=== PATIENT | female | born 1930 | race Caucasian/White ===

== ENCOUNTER 2016-09-04 13:08 | Inpatient (IN) | payer MEDICARE ==
[~2016-09-04] VITALS: Ht 165.1 cm; Wt 49.1 kg
[~2016-09-04 13:08] MED LIST: ACET650T60 PO; AMLO10TA4 PO; ASPI-482 PO; BISA-42 PO; CARV12.5 PO; CARV3.12 PO; ESCI10TA PO; ESCI10TA10 PO; FURO-68 PO; FURO20TA3 PO; HYDR-2869 PO; MULT-475 PO; Mineral Oil/Petrolatum,White TP; NYST30PO9 TP; ONDA4TAB7 PO; OSEL75CA PO; POLY119P4 PO; POTA20TA4 PO; TRAV2.5D2 OU; UBID100C12 PO; UBID100C26 PO; vitamin e PO
[2016-09-04 15:00] LABS: BASO % 1 % (0-3); EOS % 2 % (0-3); HEMOGLOBIN 11.2 g/dL (12.0-15.5); LYMPH # 1.1 x10^3/uL (1.0-4.8); LYMPH % 20 % (24-48); MEAN CORPUSCULAR HEMOGLOBIN 30 pg (25-35); MEAN CORPUSCULAR HGB CONC 34 g/dL (31-37); MEAN CORPUSCULAR VOLUME 87 fL (79-100); MONO % 11 % (0-9); NEUT % 67 % (31-73); PLATELET COUNT 202 x10^3/uL (140-400); RED BLOOD COUNT 3.81 x10^6/uL (3.50-5.40); RED CELL DISTRIBUTION WIDTH 14.2 % (11.5-14.5); WHITE BLOOD COUNT 5.5 x10^3/uL (4.0-11.0)
[2016-09-04 15:06] LABS: CALCIUM 8.7 mg/dL (8.5-10.1); CREATININE 0.9 mg/dL (0.6-1.0); GFR 59.2; POTASSIUM 3.7 mmol/L (3.5-5.1)
--- NOTE | 2016-09-04 15:08 | RAD ---
Portable chest, 09/04/2016: History: Neurologic symptoms Comparison is made to a study from 03/17/2016. There has been a previous median sternotomy. A left-sided transvenous pacemaker remains in place with 2 leads extending into the right heart. The heart size and pulmonary vascularity are normal. There is calcific plaquing of the aorta. No pulmonary infiltrates are present. Previously seen right pulmonary infiltrates have cleared. There is no evidence of pleural fluid. The bony structures are demineralized. IMPRESSION: No acute cardiopulmonary abnormality is detected.
[2016-09-04 15:11] LABS: INR 1.1 (0.8-1.1); PROTHROMBIN TIME PATIENT 13.9 SEC (11.7-14.0)
[2016-09-04 15:12] LABS: ALBUMIN 3.5 g/dL (3.4-5.0); ALBUMIN/GLOBULIN RATIO 0.9 (1.0-1.7); TOTAL BILIRUBIN 0.3 mg/dL (0.2-1.0); TOTAL PROTEIN 7.2 g/dL (6.4-8.2)
[2016-09-04 15:22] LABS: BILIRUBIN,URINE NEGATIVE (NEG); GLUCOSE,URINE NEGATIVE (NEG); NITRITE,URINE NEGATIVE (NEG); PH,URINE 6.5; PROTEIN,URINE NEGATIVE (NEG-TRACE); UROBILINOGEN,URINE 0.2 mg/dL (0.2 mg/dL)
[2016-09-04 15:42] LABS: BACTERIA,URINE 0 /HPF (0-FEW); WBC,URINE OCC /HPF (0-4)
--- NOTE | 2016-09-04 15:57 | RAD ---
CT of the head without contrast, 09/04/2016: History: Slurred speech Comparison is made to a study from 03/17/2016. This study is partially compromised by patient motion artifact. There is severe cerebral atrophy. There are moderate patchy deep white matter lucencies bilaterally compatible with chronic ischemic change. The ventricles are mildly enlarged on a compensatory basis. There is no shift of the midline structures. There is no evidence of acute intracranial hemorrhage or mass effect. There is calcific plaquing of the distal internal carotid and vertebral arteries. IMPRESSION: 1. Chronic findings as described above. 2. No acute intracranial abnormality is detected. PQRS Compliance Statement: One or more of the following individualized dose reduction techniques were utilized for this examination: 1. Automated exposure control 2. Adjustment of the mA and/or kV according to patient size 3. Use of iterative reconstruction technique
--- NOTE | 2016-09-04 16:44 | EKG ---
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
[2016-09-04] MEDS ORDERED: FENTANYL PF 100 MCG/2 ML VIAL. IV PRN (17:15)
[2016-09-04] MEDS ORDERED: ACETAMINOPHEN 325 MG TABLET. PO PRN (17:15)
[2016-09-04] MEDS ORDERED: ONDANSETRON PF 4 MG/2 ML VIAL. IV PRN (17:15)
[2016-09-04 18:05] VITALS: BP 104/62
[2016-09-04] MEDS ORDERED: DOCU100C5 PO (18:41)
--- NOTE | 2016-09-04 19:09 | PHYS DOC ---
Past Medical History Past Medical History: Anemia, Arthritis, CHF, COPD, Dementia, Diabetes-Type II , Hypertension, GA, P.U.D., Other Additional Past Medical Histor: DYSRYTHMIA Past Surgical History: Hysterectomy, Other Additional Past Surgical Histo: CABG Alcohol Use: None Drug Use: None Adult General Chief Complaint Chief Complaint: SLURRED SPEECH HPI HPI Patient is a 86 year old female who presents with slurred speech. Patient unable to provide history due to clinical condition. [facility] staff report onset of slurred speech last evening at unknown time, as well as right-sided weakness. Patient states she does not feel weak on her right side. She denies any concerns at this time, denies chest pain, shortness of breath, abdominal pain. Denies any known history of stroke. Per her chart her PCP is Dr. May. Review of Systems Review of Systems Constitutional: Denies fever or chills Eyes: Denies change in visual acuity HENT: Denies nasal congestion or sore throat Respiratory: Denies cough or shortness of breath Cardiovascular: Denies chest pain or edema GI: Denies abdominal pain, nausea, vomiting, bloody stools or diarrhea : Denies dysuria or hematuria Musculoskeletal: Denies back pain or joint pain Integument: Denies rash or skin lesions Neurologic: Reports slurred speech, possible history of right sided weakness. Denies headache, focal weakness or sensory changes Allergies Allergies Allergies Coded Allergies Type Severity Reaction Last Updated Verified No Known Drug Allergies 12/16/13 No Physical Exam Physical Exam Constitutional: thin, frail, no acute distress, non-toxic appearance. HENT: Normocephalic, atraumatic, bilateral external ears normal, oropharynx moist, nose normal. Eyes: PERRLA, EOMI, conjunctiva normal, no discharge. Neck: supple, no stridor. Cardiovascular: RRR, no murmurs, no edema. Lungs & Thorax: LCTAB, no wheezing, no respiratory distress. Abdomen: soft, nontender, nondistended. Skin: Warm, dry, no erythema, no rash. Back: No tenderness. Extremities: No tenderness, no edema. Neurologic: Alert and oriented to person only, CN2-12 grossly intact, symmetric strength/sensation to UE & LE, intact finger to nose & heel to benoit, no palmar drift, speech does sound slurred, some difficulty with word finding at times. Psychologic: Affect normal, judgement normal, mood normal. Current Patient Data Vital Signs Vital Signs Date Time Temp Pulse Resp B/P Pulse Ox O2 Delivery O2 Flow Rate FiO2 09/04/16 16:40 70 15 179/81 97 09/04/16 13:15 98.0 Room Air 98.0 Lab Values Laboratory Tests Test 09/04/16 14:45 09/04/16 15:05 White Blood Count 5.5x10^3/uL (4.0-11.0) Red Blood Count 3.81x10^6/uL (3.50-5.40) Hemoglobin 11.2g/dL (12.0-15.5) L Hematocrit 33.0% (36.0-47.0) L Mean Corpuscular Volume 87fL (79-100) Mean Corpuscular Hemoglobin 30pg (25-35) Mean Corpuscular Hemoglobin Concent 34g/dL (31-37) Red Cell Distribution Width 14.2% (11.5-14.5) Platelet Count 202x10^3/uL (140-400) Neutrophils (%) (Auto) 67% (31-73) Lymphocytes (%) (Auto) 20% (24-48) L Monocytes (%) (Auto) 11% (0-9) H Eosinophils (%) (Auto) 2% (0-3) Basophils (%) (Auto) 1% (0-3) Neutrophils # (Auto) 3.6x10^3uL (1.8-7.7) Lymphocytes # (Auto) 1.1x10^3/uL (1.0-4.8) Monocytes # (Auto) 0.6x10^3/uL (0.0-1.1) Eosinophils # (Auto) 0.1x10^3/uL (0.0-0.7) Basophils # (Auto) 0.0x10^3/uL (0.0-0.2) Prothrombin Time 13.9SEC (11.7-14.0) Prothrombin Time INR 1.1 (0.8-1.1) PTT 31SEC (24-38) Sodium Level 142mmol/L (136-145) Potassium Level 3.7mmol/L (3.5-5.1) Chloride Level 103mmol/L (98-107) Carbon Dioxide Level 29mmol/L (21-32) Anion Gap 10 (6-14) Blood Urea Nitrogen 18mg/dL (7-20) Creatinine 0.9mg/dL (0.6-1.0) Estimated GFR (Cockcroft-Gault) 59.2 BUN/Creatinine Ratio 20 (6-20) Glucose Level 136mg/dL (70-99) H Calcium Level 8.7mg/dL (8.5-10.1) Total Bilirubin 0.3mg/dL (0.2-1.0) Aspartate Amino Transferase (AST) 17U/L (15-37) Alanine Aminotransferase (ALT) 15U/L (14-59) Alkaline Phosphatase 51U/L (46-116) Troponin I Quantitative < 0.017ng/mL (0.000-0.055) Total Protein 7.2g/dL (6.4-8.2) Albumin 3.5g/dL (3.4-5.0) Albumin/Globulin Ratio 0.9 (1.0-1.7) L Urine Collection Type U cath Urine Color Yellow Urine Clarity Clear Urine pH 6.5 Urine Specific [place] <=1.005 Urine Protein Negativemg/dL (NEG-TRACE) Urine Glucose (UA) Negativemg/dL (NEG) Urine Ketones (Stick) Negativemg/dL (NEG) Urine Blood Negative (NEG) Urine Nitrite Negative (NEG) Urine Bilirubin Negative (NEG) Urine Urobilinogen Dipstick 0.2mg/dL (0.2 mg/dL) Urine Leukocyte Esterase Negative (NEG) Urine RBC 1-2/HPF (0-2) Urine WBC Occ/HPF (0-4) Urine Bacteria 0/HPF (0-FEW) Laboratory Tests 09/04/16 14:45 Laboratory Tests 09/04/16 14:45 EKG EKG interpreted by me: NSR rate 75, paced.[] Radiology/Procedures Radiology/Procedures PROCEDURE: CT HEAD WO CONTRAST CT of the head without contrast, 09/04/2016: History: Slurred speech Comparison is made to a study from 03/17/2016. This study is partially compromised by patient motion artifact. There is severe cerebral atrophy. There are moderate patchy deep white matter lucencies bilaterally compatible with chronic ischemic change. The ventricles are mildly enlarged on a compensatory basis. There is no shift of the midline structures. There is no evidence of acute intracranial hemorrhage or mass effect. There is calcific plaquing of the distal internal carotid and vertebral arteries. IMPRESSION: 1. Chronic findings as described above. 2. No acute intracranial abnormality is detected. PQRS Compliance Statement: One or more of the following individualized dose reduction techniques were utilized for this examination: 1. Automated exposure control 2. Adjustment of the mA and/or kV according to patient size 3. Use of iterative reconstruction technique DICTATED and SIGNED BY: TRESA STRATTON MD DATE: 09/04/16 1555 PROCEDURE: CHEST AP ONLY Portable chest, 09/04/2016: History: Neurologic symptoms Comparison is made to a study from 03/17/2016. There has been a previous median sternotomy. A left-sided transvenous pacemaker remains in place with 2 leads extending into the right heart. The heart size and pulmonary vascularity are normal. There is calcific plaquing of the aorta. No pulmonary infiltrates are present. Previously seen right pulmonary infiltrates have cleared. There is no evidence of pleural fluid. The bony structures are demineralized. IMPRESSION: No acute cardiopulmonary abnormality is detected. DICTATED and SIGNED BY: TRESA STRATTON MD DATE: 09/04/16 1309[] Course & Med Decision Making Course & Med Decision Making Pertinent Labs and Imaging studies reviewed. (See chart for details) The patient presents with possible stroke related symptoms. Well outside the window for TPA administration of symptoms began last night. She had head CT which showed no acute process. Her only finding at this time is slurred speech although there reportedly was some right-sided weakness initially. Discussed findings with Dr. May who recommends admission, agrees to accept for admission to inpatient status, neurology consult to Dr. White. Patient agrees with plan of care, admitted in stable condition. [] Dragon Disclaimer Dragon Disclaimer This electronic medical record was generated, in whole or in part, using a voice recognition dictation system. Departure Departure Impression: Primary Impression: Slurred speech Disposition: ADMITTED INPATIENT Condition: STABLE JULIEN SOMMER MD Sep 04, 2016 19:09
[2016-09-04] MEDS ORDERED: ASPIRIN 325 MG TABLET PO ONE (19:15)
[2016-09-04 19:44] VITALS: BP 150/69
[2016-09-04 23:35] VITALS: BP 129/61
[2016-09-05 03:28] VITALS: BP 159/56
[2016-09-05 05:52] LABS: CHOLESTEROL/HDL RATIO 5.1
[2016-09-05 07:10] VITALS: BP 159/54
--- NOTE | 2016-09-05 07:41 | RAD ---
Carotid ultrasound, 09/04/2016: History: Slurred speech Duplex evaluation of the carotid arteries in the neck was performed including grayscale, color-flow and spectral Doppler analysis. There is moderate atherosclerotic plaquing in both common carotid arteries and at the carotid bifurcations, left greater than right. The plaques are partially calcified. On the left, the peak systolic velocity in the internal carotid artery is 129 cm/s. The end-diastolic velocity is 24 cm/s. The internal carotid artery to common carotid artery ratio is 1.9. The Doppler findings suggest narrowing in the 0-50% diameter range, close to the 50% level. On the right, there is a mild velocity acceleration in the common carotid artery up to 145 cm/s. The color images do not suggest high-grade stenosis at this level. The peak systolic velocity in the right internal carotid artery is 90 cm/s with an end-diastolic velocity of 19 cm/s. The Doppler findings suggest narrowing in the 0-50% diameter range. Antegrade flow is present in both vertebral arteries in the neck. IMPRESSION: Moderate atherosclerotic plaquing in the common carotid arteries and at both carotid bifurcations with underlying luminal narrowing of the proximal internal carotid arteries in the 0-50% diameter range bilaterally. Note: Stenosis calculations for CT, MRA and conventional angiography are based upon determination of the distal ICA diameter in accordance with the NASCET methodology. Stenosis calculations for Doppler studies are derived from validated velocity criteria which are known to correlate with NASCET methodology of determining stenosis.
--- NOTE | 2016-09-05 08:43 | RAD ---
CT scan of the head without contrast 09/05/2016 Clinical History: Weakness. Technique: Unenhanced, contiguous, 5 mm axial sections were obtained through the head. One or more of the following individualized dose reduction techniques were utilized for this study: 1. Automated exposure control. 2. Adjustment of the mA and/or kV according to patient size. 3. Use of iterative reconstruction technique. Findings: Comparison study is dated 09/04/2016. There is generalized parenchymal atrophy. Small scattered areas of decreased attenuation are seen within the periventricular and subcortical white matter of both cerebral hemispheres consistent with areas of small vessel ischemic disease. No acute parenchymal abnormality is seen. No extra-axial fluid collection is noted. No skull fracture is seen. Impression: . No acute intracranial abnormality is seen.
[2016-09-05] MEDS: ASPIRIN 325 MG TABLET PO SCH (08:51)
[2016-09-05 10:39] VITALS: BP 145/56
[2016-09-05 14:31] VITALS: BP 147/70
--- NOTE | 2016-09-05 15:27 | PDOC2 ---
NEUROLOGY CONSULT Date of Admission Date of Admission DATE: 09/05/16 TIME: 15:12 Reason for Consult Reason for Consult: NEUROLOGY CONSULTATION 09-04-2016 IMPRESSION: Slurred speech and right side weakness for 1 day before coming to [facility]. DM HTN HLD CAD, s/p OH and CABG COPD Dementia. RECOMMENDATIONS/PLAN: Continue ASA 325 mg daily. Carotid A US + Doppler. Echo. Treat medical diseases. Repeat HCT w/o contrast. Lab: see orders. OT/PT. Discussed with her [id number] at bedside on 09/04. HISTORY OF THE PRESENT ILLNESS: 86-y-old female patient with above medical diseases was brought to the ER of [facility] on 09/04/16 with complaints of slurred speech and possible right side weakness noted by her skilled nursing staff the previous night. The patient was unable to provide history. When she was examed on the floor in pm of 09/04, she stated she had weakness all over, then said she did not have weakness in neither side. Her speech was not slurred at the time of exam. PAST MEDICAL HISTORY: Please see above. PAST SURGERY HISTORY: Hysterectomy ALLERGY: Unknown MEDICATIONS: Refer to [facility]ILY HISTORY: Non contributory. SOCIAL HISTORY: Lives in skilled nursing. Denies current smoking, drinking, and illicit drug use. REVIEW OF SYSTEMS: Constitutional: No malnutrition or cachexia. Head: No recent traumatic brain or head injury. Skin: No edema, or rash. Ear: No infection, tinnitus. Eyes: No vision loss or color blindness. Nose: No bleeding or purulent discharges. Hearing: Hearing decrease. Neck: No injury. Breast: No history of cancer, masses,or discharges. Cardiac: OH, CAD, s/p CABG, HTN, HLD. Pulmonary: COPD. GI: No GI ulcer, GI bleeding. Urinary/genital: UTI. Endocrinologic: Diabetes Mellitus. Skeletomuscular: Generalized weakness. Neurological: see HP. Psychiatric: Denies drug use/abuse. Otherwise, not [id number] review of systems. PHYSICAL EXAMINATION: General appearance is in no acute distress. HEENT: Normocephalic and nontraumatic. Eyes, nose, ears, and throat are unremarkable. Neck is supple. No lymphadenopathy. No bruits are heard over the carotid artery. No crepitus. Cardiovascular: S1, S2, regular rate and rhythm. Pulmonary: Clear to auscultation bilaterally. Abdomen: Bowel sounds are positive. Abdomen is soft, nontender, and nondistended. Extremities: No rash, lesions, or edema. No restriction of range of motion NEUROLOGICAL EXAMINATION: Awake. Not oriented to time, place but knows person. PERRL. EOMI. CN: no acute focal findings. Muscle tone: within normal. Muscle strength: 4+ DTR: 2- Plantar reflex: Neutral response bilaterally Gait: not examined in bed. Sensory exam: no abnormal findings. No obvious cerebellar signs elicited. F-T-N test not performed due to not follow commands.. Current Medications Current Medications Current Medications Ondansetron HCl (Zofran) 4 mg PRN Q8HRS PRN IV NAUSEA/VOMITING; Start 09/04/16 at 17:15; Stop 09/05/16 at 17:14 Fentanyl Citrate (Fentanyl 2ml Vial) 25 mcg PRN Q2HR PRN IV PAIN; Start at 17:15; Stop 09/05/16 at 17:14 Acetaminophen (Tylenol) 650 mg PRN Q4HRS PRN PO FEVER; Start 09/04/16 at 17:15 ; Stop 09/05/16 at 17:14 Aspirin (RockBee Aspirin) 325 mg 1X ONCE PO Last administered on 09/04/16 20:36 ; Start 09/04/16 at 19:15; Stop 09/04/16 at 19:16; Status DC Aspirin (RockBee Aspirin) 325 mg DAILYWBKFT PO Last administered on 09/05/16 08: 51; Start 09/05/16 at 08:00 Simvastatin (Zocor) 20 mg HS PO ; Start 09/05/16 at 21:00 Active Scripts Active Coreg (Carvedilol) 12.5 Mg Tablet 1 Tab PO BID Klor-Con M20 (Potassium Chloride) 20 Meq Tablet.er 20 Meq PO DAILYWBKFT Reported Docusate Sodium 100 Mg Capsule 100 Mg PO DAILY Norvasc (Amlodipine Besylate) 10 Mg Tablet 10 Mg PO DAILY LAST DOSE: 08/20/15 AM NEXT DOSE: 08/21/15 AM Miralax (Polyethylene Glycol 3350) 119 Gm Powder 17 Gm PO DAILY Acetaminophen 8 Hour (Acetaminophen) 650 Mg Tablet.er 650 Mg PO PRN Q4HRS PRN Allergies Allergies: Coded Allergies: No Known Drug Allergies (Unverified , 12/16/13) Vitals VITALS Vital Signs Date Time Temp Pulse Resp B/P Pulse Ox O2 Delivery O2 Flow Rate FiO2 09/05/16 14:31 97.3 63 17 147/70 94 Room Air 97.3 Labs Labs Laboratory Tests Test 09/04/16 14:45 09/04/16 15:05 09/04/16 18:16 09/05/16 04:15 White Blood Count 5.5x10^3/uL (4.0-11.0) Red Blood Count 3.81x10^6/uL (3.50-5.40) Hemoglobin 11.2g/dL (12.0-15.5) Hematocrit 33.0% (36.0-47.0) Mean Corpuscular Volume 87fL (79-100) Mean Corpuscular Hemoglobin 30pg (25-35) Mean Corpuscular Hemoglobin Concent 34g/dL (31-37) Red Cell Distribution Width 14.2% (11.5-14.5) Platelet Count 202x10^3/uL (140-400) Neutrophils (%) (Auto) 67% (31-73) Lymphocytes (%) (Auto) 20% (24-48) Monocytes (%) (Auto) 11% (0-9) Eosinophils (%) (Auto) 2% (0-3) Basophils (%) (Auto) 1% (0-3) Neutrophils # (Auto) 3.6x10^3uL (1.8-7.7) Lymphocytes # (Auto) 1.1x10^3/uL (1.0-4.8) Monocytes # (Auto) 0.6x10^3/uL (0.0-1.1) Eosinophils # (Auto) 0.1x10^3/uL (0.0-0.7) Basophils # (Auto) 0.0x10^3/uL (0.0-0.2) Prothrombin Time 13.9SEC (11.7-14.0) Prothromb Time International Ratio 1.1 (0.8-1.1) Activated Partial Thromboplast Time 31SEC (24-38) Sodium Level 142mmol/L (136-145) Potassium Level 3.7mmol/L (3.5-5.1) Chloride Level 103mmol/L (98-107) Carbon Dioxide Level 29mmol/L (21-32) Anion Gap 10 (6-14) Blood Urea Nitrogen 18mg/dL (7-20) Creatinine 0.9mg/dL (0.6-1.0) Estimated GFR (Cockcroft-Gault) 59.2 BUN/Creatinine Ratio 20 (6-20) Glucose Level 136mg/dL (70-99) Calcium Level 8.7mg/dL (8.5-10.1) Total Bilirubin 0.3mg/dL (0.2-1.0) Aspartate Amino Transf (AST/SGOT) 17U/L (15-37) Alanine Aminotransferase (ALT/SGPT) 15U/L (14-59) Alkaline Phosphatase 51U/L (46-116) Troponin I Quantitative < 0.017ng/mL (0.000-0.055) Total Protein 7.2g/dL (6.4-8.2) Albumin 3.5g/dL (3.4-5.0) Albumin/Globulin Ratio 0.9 (1.0-1.7) Vitamin B12 Level 460pg/mL (247-911) Thyroid Stimulating Hormone (TSH) 1.235uIU/mL (0.358-3.74) Urine Collection Type U cath Urine Color Yellow Urine Clarity Clear Urine pH 6.5 Urine Specific [place] <=1.005 Urine Protein Negativemg/dL (NEG-TRACE) Urine Glucose (UA) Negativemg/dL (NEG) Urine Ketones (Stick) Negativemg/dL (NEG) Urine Blood Negative (NEG) Urine Nitrite Negative (NEG) Urine Bilirubin Negative (NEG) Urine Urobilinogen Dipstick 0.2mg/dL (0.2 mg/dL) Urine Leukocyte Esterase Negative (NEG) Urine RBC 1-2/HPF (0-2) Urine WBC Occ/HPF (0-4) Urine Bacteria 0/HPF (0-FEW) Nasal Screen MRSA (PCR) Negative (Negative) Triglycerides Level 195mg/dL (0-150) Cholesterol Level 168mg/dL (0-200) LDL Cholesterol, Calculated 96mg/dL (0-100) VLDL Cholesterol, Calculated 39mg/dL (0-40) HDL Cholesterol 33mg/dL (40-60) Cholesterol/HDL Ratio 5.1 Laboratory Tests Test 09/04/16 18:16 09/05/16 04:15 Nasal Screen MRSA (PCR) Negative (Negative) Triglycerides Level 195mg/dL (0-150) Cholesterol Level 168mg/dL (0-200) LDL Cholesterol, Calculated 96mg/dL (0-100) VLDL Cholesterol, Calculated 39mg/dL (0-40) HDL Cholesterol 33mg/dL (40-60) Cholesterol/HDL Ratio 5.1 VARGAS VACA MD Sep 05, 2016 15:27
--- NOTE | 2016-09-05 15:31 | PDOC ---
PROGRESS NOTES Assessment Assessment Slurred speech and right side weakness for 1 day before coming to [facility]. Reversible CVA syndrome. 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 No evidence of acute large CVA this time. RECOMMENDATIONS/PLAN: Continue ASA 325 mg daily. Add Zocor 20 mg HS. Treat medical diseases. OT/PT. Discussed with her [id number]-nv-xyr at bedside on 09/04. 2 HCTs showed no large CVA this time. Carotid A US + Doppler.: No high grade stenosis. Echo: Pending. Lab: TSH and Vit B12 WNL. Lipids elevated. HISTORY OF THE PRESENT ILLNESS: 86-y-old female patient with above medical diseases was brought to the ER of [facility] on 09/04/16 with complaints of slurred speech and possible right side weakness noted by her detention staff the previous night. The patient was unable to provide history. When she was examed on the floor in pm of 09/04, she stated she had weakness all over, then said she did not have weakness in neither side. Her speech was not slurred at the time of exam. No sided weakness or slurred speech on 09/05. PAST MEDICAL HISTORY: Please see above. PAST SURGERY HISTORY: Hysterectomy ALLERGY: Unknown MEDICATIONS: Refer to [facility] FAMILY HISTORY: Non contributory. SOCIAL HISTORY: Lives in detention. Denies current smoking, drinking, and illicit drug use. REVIEW OF SYSTEMS: Constitutional: No malnutrition or cachexia. Head: No recent traumatic brain or head injury. Skin: No edema, or rash. Ear: No infection, tinnitus. Eyes: No vision loss or color blindness. Nose: No bleeding or purulent discharges. Hearing: Hearing decrease. Neck: No injury. Breast: No history of cancer, masses,or discharges. Cardiac: IL, CAD, s/p CABG, HTN, HLD. Pulmonary: COPD. GI: No GI ulcer, GI bleeding. Urinary/genital: UTI. Endocrinologic: Diabetes Mellitus. Skeletomuscular: Generalized weakness. Neurological: see HP. Psychiatric: Denies drug use/abuse. Otherwise, not [id number] review of systems. PHYSICAL EXAMINATION: General appearance is in no acute distress. HEENT: Normocephalic and nontraumatic. Eyes, nose, ears, and throat are unremarkable. Neck is supple. No lymphadenopathy. No bruits are heard over the carotid artery. No crepitus. Cardiovascular: S1, S2, regular rate and rhythm. Pulmonary: Clear to auscultation bilaterally. Abdomen: Bowel sounds are positive. Abdomen is soft, nontender, and nondistended. Extremities: No rash, lesions, or edema. No restriction of range of motion NEUROLOGICAL EXAMINATION: Awake. Not oriented to time, place but knows person. PERRL. EOMI. CN: no acute focal findings. Muscle tone: within normal. Muscle strength: 4+ DTR: 2- Plantar reflex: Neutral response bilaterally Gait: not examined in bed. Sensory exam: no abnormal findings. No obvious cerebellar signs elicited. F-T-N test not performed due to not follow commands.. Objective Objective Vital Signs Date Time Temp Pulse Resp B/P Pulse Ox O2 Delivery O2 Flow Rate FiO2 09/05/16 14:31 97.3 63 17 147/70 94 Room Air 97.3 Intake and Output 09/05/16 07:00 Intake Total 200 ml Balance 200 ml Intake Oral 200 ml # Voids 4 # Bowel Movements 1 Vitals Signs Vitals VS - Last 72 Hours, by Label Date Time Temp Pulse Resp B/P Pulse Ox O2 Delivery O2 Flow Rate FiO2 09/05/16 14:31 97.3 63 17 147/70 94 Room Air 97.3 09/05/16 10:39 97.6 66 17 145/56 95 Room Air 97.6 09/05/16 08:00 Room Air 09/05/16 07:10 97.9 71 17 159/54 95 Room Air 97.9 09/05/16 03:28 97.7 70 16 159/56 95 Room Air 97.7 09/04/16 23:35 97.7 70 16 129/61 94 Room Air 97.7 09/04/16 20:00 Room Air 09/04/16 19:44 96.1 78 16 150/69 94 Room Air 96.1 09/04/16 18:05 97.7 70 20 104/62 89 Room Air 97.7 09/04/16 17:10 74 12 179/74 96 09/04/16 16:40 70 15 179/81 97 09/04/16 16:10 72 13 178/80 97 09/04/16 15:40 70 20 171/74 96 09/04/16 15:14 7 16 175/74 96 09/04/16 14:14 70 17 158/67 97 09/04/16 13:44 70 20 184/74 97 09/04/16 13:15 98.0 69 16 164/70 97 Room Air 98.0 09/04/16 13:14 164/70 Room Air Laboratory Laboratory Laboratory Tests Test 09/04/16 18:16 09/05/16 04:15 Nasal Screen MRSA (PCR) Negative (Negative) Triglycerides Level 195mg/dL (0-150) Cholesterol Level 168mg/dL (0-200) LDL Cholesterol, Calculated 96mg/dL (0-100) VLDL Cholesterol, Calculated 39mg/dL (0-40) HDL Cholesterol 33mg/dL (40-60) Cholesterol/HDL Ratio 5.1 Medication Medications Current Medications Acetaminophen (Tylenol) 650 mg PRN Q4HRS PRN PO FEVER; Start 09/04/16 at 17:15 ; Stop 09/05/16 at 17:14 Aspirin ([employer] Aspirin) 325 mg 1X ONCE PO Last administered on 09/04/16 20:36 ; Start 09/04/16 at 19:15; Stop 09/04/16 at 19:16; Status DC Aspirin ([employer] Aspirin) 325 mg DAILYWBKFT PO Last administered on 09/05/16 08: 51; Start 09/05/16 at 08:00 Fentanyl Citrate (Fentanyl 2ml Vial) 25 mcg PRN Q2HR PRN IV PAIN; Start at 17:15; Stop 09/05/16 at 17:14 Ondansetron HCl (Zofran) 4 mg PRN Q8HRS PRN IV NAUSEA/VOMITING; Start 09/04/16 at 17:15; Stop 09/05/16 at 17:14 Simvastatin (Zocor) 20 mg HS PO ; Start 09/05/16 at 21:00 Comment Review of Relevant I have reviewed the following items mariaelena (where applicable) has been applied. VARGAS VACA MD Sep 05, 2016 15:31
--- NOTE | 2016-09-05 16:55 | PDOC ---
GENERAL General: see dictated H&P. Problems: VITAL SIGNS Vital Signs: Vital Signs Date Time Temp Pulse Resp B/P Pulse Ox O2 Delivery O2 Flow Rate FiO2 09/05/16 14:31 97.3 63 17 147/70 94 Room Air 97.3 I & O I & O Intake and Output 09/05/16 07:00 Intake Total 200 ml Balance 200 ml Intake Oral 200 ml # Voids 4 # Bowel Movements 1 ALLERGIES Allergies: Allergies Coded Allergies Type Severity Reaction Last Updated Verified No Known Drug Allergies 12/16/13 No MEDS Medications: Current Medications Medications (Trade) Dose Ordered Sig/Peggy Start Time Stop Time Status Last Admin Dose Admin Acetaminophen (Tylenol) 650 mg PRN Q4HRS PRN 09/04/16 17:15 09/05/16 17:14 Aspirin (Sarah Aspirin) 325 mg DAILYWBKFT 09/05/16 08:00 09/05/16 08:51 325 MG Fentanyl Citrate (Fentanyl 2ml Vial) 25 mcg PRN Q2HR PRN 09/04/16 17:15 09/05/16 17:14 Ondansetron HCl (Zofran) 4 mg PRN Q8HRS PRN 09/04/16 17:15 09/05/16 17:14 Simvastatin (Zocor) 20 mg HS 09/05/16 21:00 LAB Lab: Laboratory Tests Test 09/04/16 18:16 09/05/16 04:15 Nasal Screen MRSA (PCR) Negative (Negative) Triglycerides Level 195mg/dL (0-150) Cholesterol Level 168mg/dL (0-200) LDL Cholesterol, Calculated 96mg/dL (0-100) VLDL Cholesterol, Calculated 39mg/dL (0-40) HDL Cholesterol 33mg/dL (40-60) Cholesterol/HDL Ratio 5.1 ORION RALPH MD Sep 05, 2016 16:55
[2016-09-05] MEDS ORDERED: ACETAMINOPHEN 325 MG TABLET. PO PRN (17:00)
--- NOTE | 2016-09-05 17:21 | CARD ---
APPROVED REPORT EXAM: Two-dimensional and M-mode echocardiogram with Doppler and color Doppler. Other Information Quality : AverageHR: 70bpm INDICATION CVA/TIA 2D DIMENSIONS RVDd3.3 (2.9-3.5cm)Left Atrium(2D)3.9 (1.6-4.0cm) IVSd1.1 (0.7-1.1cm)Aortic Root(2D)2.7 (2.0-3.7cm) LVDd4.5 (3.9-5.9cm)LVOT Diameter2.2 (1.8-2.4cm) PWd1.0 (0.7-1.1cm)LVDs2.6 (2.5-4.0cm) FS (%) 41.2 %SV66.9 ml LVEF(%)72.2 (>50%) Aortic Valve AoV Peak Don.258.2cm/sAoV VTI54.2cm AO Peak GR.26.7mmHgLVOT VTI 25.13cm AO Mean GR.16mmHgAVA (VMAX)1.69cm2 Mitral Valve MV E Tanniheh907.4cm/sMV E Peak Gr.9mmHg MV DECEL [id number] A Vlwlhaao245.4cm/s MV E Mean Gr.5mmHgE/A Ratio1.0 MV A [id number] TDI Lateral E' P. V7.11cm/sMedial E' P. V6.61cm/s E/Lateral E'15.7E/Medial E'16.9 Tricuspid Valve TR P. [id number]/sRAP [id number] TR Peak Gr.40ljXdMVCY54crEt LEFT VENTRICLE The left ventricle is normal size. There is mild concentric left ventricular hypertrophy. Left ventri arnoldo systolic function is normal. The Ejection Fraction is 60-65%. There is normal LV segmental wall m otion. Transmitral Doppler flow pattern is Grade I-abnormal relaxation pattern. There is no ventricul ar septal defect visualized. RIGHT VENTRICLE The right ventricle is normal size. The right ventricular systolic function is normal. ATRIA The left atrium size is normal. The right atrium size is normal. The interatrial septum is intact wit h no evidence for an atrial septal defect or patent foramen ovale as noted on 2-D or Doppler imaging. AORTIC VALVE The aortic valve is not well visualized but appears heavily calcified. Doppler and Color Flow reveale d no significant aortic regurgitation. Calculated aortic valve area is 1.7 cm2 with maximum pressure gradient of 27 mmHg and mean pressure gradient of 16 mmHg. Doppler and color-flow analysis revealed m ild aortic stenosis. MITRAL VALVE Mitral annular calcification is moderate. The mitral valve leaflets are calcified. There is no eviden ce of mitral valve prolapse. There is no mitral valve stenosis. Doppler and Color Flow revealed trace mitral regurgitation. TRICUSPID VALVE The tricuspid valve is normal in structure. Doppler and Color Flow revealed trace tricuspid regurgita tion. The PA pressure was estimated at 29 mmHg. There is no tricuspid valve stenosis. PULMONIC VALVE The pulmonic valve is not well visualized. Doppler and Color Flow revealed no pulmonic valvular regur gitation. There is no pulmonic valvular stenosis. GREAT VESSELS The aortic root is normal in size. Pulmonary vein flow not well visualized. The IVC was not visualize d. PERICARDIAL EFFUSION There is no evidence of significant pericardial effusion. Critical Notification Critical Value: No <Conclusion> Left ventricle systolic function is normal. The Ejection Fraction is 60-65%. The aortic valve is not well visualized but appears heavily calcified. Calculated aortic valve area is 1.7 cm2 with maximum pressure gradient of 27 mmHg and mean pressure g radient of 16 mmHg. Doppler and color-flow analysis revealed mild aortic stenosis. Technically difficult study
[2016-09-05] MEDS: DOCUSATE SODIUM 100 MG CAPSULE. PO SCH (18:03)
[2016-09-05] MEDS: CARVEDILOL 12.5 MG TABLET. PO SCH (18:03)
[2016-09-05] MEDS: AMLODIPINE BESYLATE 10 MG TABLET. PO SCH (18:04)
[2016-09-05] MEDS: POLYETHYLENE GLYCOL 3350 17 GM PACKET. PO SCH (18:04)
[2016-09-05] MEDS: POTASSIUM CHLORIDE 20 MEQ TABLET.ER. PO SCH (18:04)
[2016-09-05 19:39] VITALS: BP 151/68
--- NOTE | 2016-09-05 20:19 | HP ---
ADMIT DATE: 09/04/2016 CHIEF COMPLAINT AND HISTORY OF PRESENT ILLNESS: This is an 86-year-old white female, who is a resident at [facility] due to primary early dementia. She was found to have some right-sided weakness and slurred speech, sent to the Emergency Room where she was admitted for the same. By the time of my examination, she has no complaints and her speech has not appeared to be slurred and she seems to have equal strength on both sides, but it is the following day. PAST MEDICAL HISTORY: Remarkable for anemia, COPD, congestive heart failure, arthritis, dementia, hypertension, diabetes, peptic ulcer disease, DE, prior dysrhythmias. PAST SURGICAL HISTORY: She has had prior hysterectomy, CABG. MEDICATIONS: Brought with the patient, listed on the computer and have been addressed. ALLERGIES: She has no known drug allergies. SOCIAL HISTORY: She is nonsmoker, nondrinker, does not use alcohol. FAMILY HISTORY: Noncontributory. REVIEW OF SYSTEMS: Remarkable for that as mentioned above other than the fact that she does state that she hurts all over. PHYSICAL EXAMINATION: GENERAL: She is a well-developed, well-nourished white female in no acute distress. VITAL SIGNS: Stable. She is afebrile, blood pressures were somewhat elevated. HEAD, EYES, EARS, NOSE AND THROAT: Unremarkable. NECK: Supple without bruit, thyromegaly, no bruits were heard. CHEST: Clear to auscultation and percussion. HEART: Irregular rate and rhythm without S3, S4 or murmur. ABDOMEN: Soft, nontender, without hepatosplenomegaly or masses. EXTREMITIES: Without cyanosis, clubbing or edema. NEUROLOGIC: Remarkable for being oriented to person only. There is, otherwise, no focal finding. LABS: Initial CT of the head is negative ____ Dopplers and chest x-ray. Laboratory is unrewarding. IMPRESSION: Slurred speech and right-sided weakness likely transient ischemic attack with resolution at this point in time. PLAN: The patient has been admitted. Neurology will be consulted. Workup will be undertaken and the patient will be monitored, managed and treated appropriately. ORION RALPH MD DR: BEST/mónica JOB#: [id number] / [id number]
[2016-09-05] MEDS ORDERED: SIMVASTATIN 20 MG TABLET PO SCH (21:00)
[2016-09-05 23:24] VITALS: BP 137/53
[2016-09-06 03:27] VITALS: BP 129/52
[2016-09-06 07:25] VITALS: BP 154/59
--- NOTE | 2016-09-06 07:57 | PDOC ---
GENERAL General: vss and afebrile. awake and alert. oriented to person and without complaints.chest clear and heart regular. will ask therapy to see and follow neuro lead. likely back to custodial in am. Problems: VITAL SIGNS Vital Signs: Vital Signs Date Time Temp Pulse Resp B/P Pulse Ox O2 Delivery O2 Flow Rate FiO2 09/06/16 03:27 97.9 71 16 129/52 95 Room Air 97.9 I & O I & O Intake and Output 09/06/16 07:00 Intake Total 850 ml Balance 850 ml Intake Oral 850 ml # Voids 8 # Bowel Movements 1 ALLERGIES Allergies: Allergies Coded Allergies Type Severity Reaction Last Updated Verified No Known Drug Allergies 12/16/13 No MEDS Medications: Current Medications Medications (Trade) Dose Ordered Sig/Peggy Start Time Stop Time Status Last Admin Dose Admin Acetaminophen (Tylenol) 650 mg PRN Q6HRS PRN 09/05/16 17:00 Amlodipine Besylate (Norvasc) 10 mg DAILY 09/05/16 17:30 09/05/16 18:04 10 MG Aspirin (Sarah Aspirin) 325 mg DAILYWBKFT 09/05/16 08:00 09/05/16 08:51 325 MG Carvedilol (Coreg) 12.5 mg BIDWMEALS 09/05/16 17:00 09/05/16 18:03 12.5 MG Docusate Sodium (Colace) 100 mg DAILY 09/05/16 17:03 09/05/16 18:03 100 MG Fentanyl Citrate (Fentanyl 2ml Vial) 25 mcg PRN Q2HR PRN 09/04/16 17:15 09/05/16 17:14 DC Ondansetron HCl (Zofran) 4 mg PRN Q8HRS PRN 09/04/16 17:15 09/05/16 17:14 DC Polyethylene Glycol (miraLAX PACKET) 17 gm DAILY 09/05/16 17:30 09/05/16 18:04 17 GM Potassium Chloride (Klor-Con) 20 meq DAILYWBKFT 09/05/16 17:30 09/05/16 18:04 20 MEQ Simvastatin (Zocor) 20 mg HS 09/05/16 21:00 09/05/16 20:32 20 MG ORION RALPH MD Sep 06, 2016 07:57
[2016-09-06] MEDS: POTASSIUM CHLORIDE 20 MEQ TABLET.ER. PO SCH (08:18)
[2016-09-06] MEDS: AMLODIPINE BESYLATE 10 MG TABLET. PO SCH (08:19)
[2016-09-06] MEDS: ASPIRIN 325 MG TABLET PO SCH (08:19)
[2016-09-06] MEDS: CARVEDILOL 12.5 MG TABLET. PO SCH (08:20)
[2016-09-06] MEDS: POLYETHYLENE GLYCOL 3350 17 GM PACKET. PO SCH (08:21)
[2016-09-06] MEDS: DOCUSATE SODIUM 100 MG CAPSULE. PO SCH (08:21)
--- NOTE | 2016-09-06 09:12 | PDOC2 ---
CONSULT Date of Consult Date of Consult DATE: 09/05/16 Reason for Consult Reason for Consult: extensive cardiac history, Echo and Carotid US obtained during this admission Identification/Chief Complaint Chief Complaint CVA symptoms History of Present Illness Reason for Visit: 86F [facility] resident presented to ED on 09/04/16 for right sided weakness and slurred speech. CT head showed no acute process at that time. Denies CP, palpitations, SOB, dizziness or extremity swelling. Past Medical History Cardiovascular: CAD, CHF, HTN, Hyperlipidemia, Pulmonary hypertension Pulmonary: COPD CENTRAL NERVOUS SYSTEM: Dementia GI: GERD, Peptic Ulcer disease Heme/Onc: Anemia NOS Musculoskeletal: Osteoarthritis Endocrine: Diabetes Past Surgical History Past Surgical History: Pacemaker, CABG, Cataract Removal, Hysterectomy, Other Family History Family History: Coronary Artery Disease, Diabetes, Hypertension Social History ALCOHOL: none Current Problem List Problem List Problems Medical Problems: (1) CVA (cerebral vascular accident) Status: Acute (2) Slurred speech Status: Acute Current Medications Current Medications Current Medications Ondansetron HCl (Zofran) 4 mg PRN Q8HRS PRN IV NAUSEA/VOMITING; Start 09/04/16 at 17:15; Stop 09/05/16 at 17:14; Status DC Fentanyl Citrate (Fentanyl 2ml Vial) 25 mcg PRN Q2HR PRN IV PAIN; Start at 17:15; Stop 09/05/16 at 17:14; Status DC Acetaminophen (Tylenol) 650 mg PRN Q4HRS PRN PO FEVER; Start 09/04/16 at 17:15 ; Stop 09/05/16 at 17:14; Status DC Aspirin ([employer] Aspirin) 325 mg 1X ONCE PO Last administered on 09/04/16 20:36 ; Start 09/04/16 at 19:15; Stop 09/04/16 at 19:16; Status DC Aspirin (Sarah Aspirin) 325 mg DAILYWBKFT PO Last administered on 09/06/16 08: 19; Start 09/05/16 at 08:00 Simvastatin (Zocor) 20 mg HS PO Last administered on 09/05/16 20:32; Start 04/13 at 21:00 Amlodipine Besylate (Norvasc) 10 mg DAILY PO Last administered on 09/06/16 08: 19; Start 09/05/16 at 17:30 Carvedilol (Coreg) 12.5 mg BIDWMEALS PO Last administered on 09/06/16 08:20; Start 09/05/16 at 17:00 Docusate Sodium (Colace) 100 mg DAILY PO Last administered on 09/06/16 08:21; Start 09/05/16 at 17:03 Polyethylene Glycol (miraLAX PACKET) 17 gm DAILY PO Last administered on 18:04; Start 09/05/16 at 17:30 Potassium Chloride (Klor-Con) 20 meq DAILYWBKFT PO Last administered on 08:18; Start 09/05/16 at 17:30 Acetaminophen (Tylenol) 650 mg PRN Q6HRS PRN PO PAIN; Start 09/05/16 at 17:00 Active Scripts Active Coreg (Carvedilol) 12.5 Mg Tablet 1 Tab PO BID Klor-Con M20 (Potassium Chloride) 20 Meq Tablet.er 20 Meq PO DAILYWBKFT Reported Docusate Sodium 100 Mg Capsule 100 Mg PO DAILY Norvasc (Amlodipine Besylate) 10 Mg Tablet 10 Mg PO DAILY LAST DOSE: 08/20/15 AM NEXT DOSE: 08/21/15 AM Miralax (Polyethylene Glycol 3350) 119 Gm Powder 17 Gm PO DAILY Acetaminophen 8 Hour (Acetaminophen) 650 Mg Tablet.er 650 Mg PO PRN Q4HRS PRN Allergies Allergies: Coded Allergies: No Known Drug Allergies (Unverified , 12/16/13) Physical Exam Physical Exam GENERAL: patient sitting up in wheelchair eating breakfast, no acute distress HEART: irregular rhythm, no murmur noted EXTREMITIES: no pedal edema bilaterally Vitals VITALS Vital Signs Date Time Temp Pulse Resp B/P Pulse Ox O2 Delivery O2 Flow Rate FiO2 09/06/16 08:20 71 129/52 09/06/16 07:25 97.1 16 95 Room Air 97.1 Labs Labs Laboratory Tests Test 09/04/16 14:45 09/04/16 15:05 09/04/16 18:16 09/05/16 04:15 White Blood Count 5.5x10^3/uL (4.0-11.0) Red Blood Count 3.81x10^6/uL (3.50-5.40) Hemoglobin 11.2g/dL (12.0-15.5) Hematocrit 33.0% (36.0-47.0) Mean Corpuscular Volume 87fL (79-100) Mean Corpuscular Hemoglobin 30pg (25-35) Mean Corpuscular Hemoglobin Concent 34g/dL (31-37) Red Cell Distribution Width 14.2% (11.5-14.5) Platelet Count 202x10^3/uL (140-400) Neutrophils (%) (Auto) 67% (31-73) Lymphocytes (%) (Auto) 20% (24-48) Monocytes (%) (Auto) 11% (0-9) Eosinophils (%) (Auto) 2% (0-3) Basophils (%) (Auto) 1% (0-3) Neutrophils # (Auto) 3.6x10^3uL (1.8-7.7) Lymphocytes # (Auto) 1.1x10^3/uL (1.0-4.8) Monocytes # (Auto) 0.6x10^3/uL (0.0-1.1) Eosinophils # (Auto) 0.1x10^3/uL (0.0-0.7) Basophils # (Auto) 0.0x10^3/uL (0.0-0.2) Prothrombin Time 13.9SEC (11.7-14.0) Prothromb Time International Ratio 1.1 (0.8-1.1) Activated Partial Thromboplast Time 31SEC (24-38) Sodium Level 142mmol/L (136-145) Potassium Level 3.7mmol/L (3.5-5.1) Chloride Level 103mmol/L (98-107) Carbon Dioxide Level 29mmol/L (21-32) Anion Gap 10 (6-14) Blood Urea Nitrogen 18mg/dL (7-20) Creatinine 0.9mg/dL (0.6-1.0) Estimated GFR (Cockcroft-Gault) 59.2 BUN/Creatinine Ratio 20 (6-20) Glucose Level 136mg/dL (70-99) Calcium Level 8.7mg/dL (8.5-10.1) Total Bilirubin 0.3mg/dL (0.2-1.0) Aspartate Amino Transf (AST/SGOT) 17U/L (15-37) Alanine Aminotransferase (ALT/SGPT) 15U/L (14-59) Alkaline Phosphatase 51U/L (46-116) Troponin I Quantitative < 0.017ng/mL (0.000-0.055) Total Protein 7.2g/dL (6.4-8.2) Albumin 3.5g/dL (3.4-5.0) Albumin/Globulin Ratio 0.9 (1.0-1.7) Vitamin B12 Level 460pg/mL (247-911) Thyroid Stimulating Hormone (TSH) 1.235uIU/mL (0.358-3.74) Urine Collection Type U cath Urine Color Yellow Urine Clarity Clear Urine pH 6.5 Urine Specific [place] <=1.005 Urine Protein Negativemg/dL (NEG-TRACE) Urine Glucose (UA) Negativemg/dL (NEG) Urine Ketones (Stick) Negativemg/dL (NEG) Urine Blood Negative (NEG) Urine Nitrite Negative (NEG) Urine Bilirubin Negative (NEG) Urine Urobilinogen Dipstick 0.2mg/dL (0.2 mg/dL) Urine Leukocyte Esterase Negative (NEG) Urine RBC 1-2/HPF (0-2) Urine WBC Occ/HPF (0-4) Urine Bacteria 0/HPF (0-FEW) Nasal Screen MRSA (PCR) Negative (Negative) Triglycerides Level 195mg/dL (0-150) Cholesterol Level 168mg/dL (0-200) LDL Cholesterol, Calculated 96mg/dL (0-100) VLDL Cholesterol, Calculated 39mg/dL (0-40) HDL Cholesterol 33mg/dL (40-60) Cholesterol/HDL Ratio 5.1 Assessment/Plan Assessment/Plan No cardiac complaints at this time. Denies CP, SOB, palpitations or dizziness. Continue to monitor heart rate/rhythm. Carotid US reviewed: moderate atherosclerotic plaquing both common carotids at bifurcation with proximal internal carotid narrowing Echo reviewed: EF 60-65%, calcified aortic valve, mild aortic stenosis Continue ASA daily. Agree with plan. Thank you for the consult. KELSEY FUENTES MD Sep 06, 2016 09:12
[2016-09-06 11:25] VITALS: BP 144/60
--- NOTE | 2016-09-06 15:55 | PDOC ---
PROGRESS NOTES Assessment Assessment Slurred speech and right side weakness for 1 day before coming to [facility]. Reversible CVA syndrome. DM HTN HLD CAD, s/p ND and CABG COPD Dementia. No evidence of acute large CVA this time. RECOMMENDATIONS/PLAN: Continue ASA 325 mg daily. Add Zocor 20 mg HS. Treat medical diseases. FU with PCP. Discussed with her [id number] at bedside on 09/04. 2 HCTs showed no large CVA this time. Carotid A US + Doppler.: No high grade stenosis. Echo: Pending. Lab: TSH and Vit B12 WNL. Lipids elevated. HISTORY OF THE PRESENT ILLNESS: 86-y-old female patient with above medical diseases was brought to the ER of [facility] on 09/04/16 with complaints of slurred speech and possible right side weakness noted by her long term staff the previous night. The patient was unable to provide history. When she was examed on the floor in pm of 09/04, she stated she had weakness all over, then said she did not have weakness in neither side. Her speech was not slurred at the time of exam. No sided weakness or slurred speech since 09/05. PAST MEDICAL HISTORY: Please see above. PAST SURGERY HISTORY: Hysterectomy ALLERGY: Unknown MEDICATIONS: Refer to [facility] HISTORY: Non contributory. SOCIAL HISTORY: Lives in long term. Denies current smoking, drinking, and illicit drug use. REVIEW OF SYSTEMS: Constitutional: No malnutrition or cachexia. Head: No recent traumatic brain or head injury. Skin: No edema, or rash. Ear: No infection, tinnitus. Eyes: No vision loss or color blindness. Nose: No bleeding or purulent discharges. Hearing: Hearing decrease. Neck: No injury. Breast: No history of cancer, masses,or discharges. Cardiac: ND, CAD, s/p CABG, HTN, HLD. Pulmonary: COPD. GI: No GI ulcer, GI bleeding. Urinary/genital: UTI. Endocrinologic: Diabetes Mellitus. Skeletomuscular: Generalized weakness. Neurological: see HP. Psychiatric: Denies drug use/abuse. Otherwise, not [id number] review of systems. PHYSICAL EXAMINATION: General appearance is in no acute distress. HEENT: Normocephalic and nontraumatic. Eyes, nose, ears, and throat are unremarkable. Neck is supple. No lymphadenopathy. No bruits are heard over the carotid artery. No crepitus. Cardiovascular: S1, S2, regular rate and rhythm. Pulmonary: Clear to auscultation bilaterally. Abdomen: Bowel sounds are positive. Abdomen is soft, nontender, and nondistended. Extremities: No rash, lesions, or edema. No restriction of range of motion NEUROLOGICAL EXAMINATION: Awake. Not oriented to time, place but knows person. PERRL. EOMI. CN: no acute focal findings. Muscle tone: within normal. Muscle strength: 4+ DTR: 2- Plantar reflex: Neutral response bilaterally Gait: not examined in chair. Sensory exam: no abnormal findings. No obvious cerebellar signs elicited. F-T-N test not performed due to not follow commands.. Objective Objective Vital Signs Date Time Temp Pulse Resp B/P Pulse Ox O2 Delivery O2 Flow Rate FiO2 09/06/16 11:25 98.1 73 16 144/60 96 Room Air 98.1 Intake and Output 09/06/16 07:00 Intake Total 850 ml Balance 850 ml Intake Oral 850 ml # Voids 8 # Bowel Movements 1 Vitals Signs Vitals VS - Last 72 Hours, by Label Date Time Temp Pulse Resp B/P Pulse Ox O2 Delivery O2 Flow Rate FiO2 09/06/16 11:25 98.1 73 16 144/60 96 Room Air 98.1 09/06/16 08:20 71 129/52 09/06/16 08:19 71 129/52 09/06/16 08:00 Room Air 09/06/16 07:25 97.1 66 16 154/59 95 Room Air 97.1 09/06/16 03:27 97.9 71 16 129/52 95 Room Air 97.9 09/05/16 23:24 96.6 69 18 137/53 96 Room Air 96.6 09/05/16 20:00 Room Air 09/05/16 19:39 97.5 70 16 151/68 95 Room Air 97.5 09/05/16 18:04 63 147/70 09/05/16 18:03 63 147/70 09/05/16 14:31 97.3 63 17 147/70 94 Room Air 97.3 09/05/16 10:39 97.6 66 17 145/56 95 Room Air 97.6 09/05/16 08:00 Room Air 09/05/16 07:10 97.9 71 17 159/54 95 Room Air 97.9 Medication Medications Current Medications Acetaminophen (Tylenol) 650 mg PRN Q6HRS PRN PO PAIN; Start 09/05/16 at 17:00; Stop 09/06/16 at 15:29; Status DC Amlodipine Besylate (Norvasc) 10 mg DAILY PO Last administered on 09/06/16 08: 19; Start 09/05/16 at 17:30; Stop 09/06/16 at 15:29; Status DC Carvedilol (Coreg) 12.5 mg BIDWMEALS PO Last administered on 09/06/16 08:20; Start 09/05/16 at 17:00; Stop 09/06/16 at 15:29; Status DC Docusate Sodium (Colace) 100 mg DAILY PO Last administered on 09/06/16 08:21; Start 09/05/16 at 17:03; Stop 09/06/16 at 15:29; Status DC Polyethylene Glycol (miraLAX PACKET) 17 gm DAILY PO Last administered on 18:04; Start 09/05/16 at 17:30; Stop 09/06/16 at 15:29; Status DC Potassium Chloride (Klor-Con) 20 meq DAILYWBKFT PO Last administered on 08:18; Start 09/05/16 at 17:30; Stop 09/06/16 at 15:29; Status DC Simvastatin (Zocor) 20 mg HS PO Last administered on 09/05/16 20:32; Start 04/13 at 21:00; Stop 09/06/16 at 15:29; Status DC Comment Review of Relevant I have reviewed the following items mariaelena (where applicable) has been applied. VARGAS VACA MD Sep 06, 2016 15:55
== END 2016-09-06 15:15 | DRG 69 ==
LOC: ER 13:08 → 6 SOUTH 16:46
PROVIDERS: ADMIT Family Medicine; ATTEND Family Medicine
DX: I67.841 Reversible cerebrovascular vasoconstriction syndrome (principal); J44.9 Chronic obstructive pulmonary disease, unspecified; R47.81 Slurred speech; E78.5 Hyperlipidemia, unspecified; F03.90 Unspecified dementia, unspecified severity, without behavioral disturbance, psychotic disturbance, mood disturbance, and anxiety; I11.0 Hypertensive heart disease with heart failure; I25.10 Atherosclerotic heart disease of native coronary artery without angina pectoris; M19.90 Unspecified osteoarthritis, unspecified site; I27.2 Other secondary pulmonary hypertension; I35.0 Nonrheumatic aortic (valve) stenosis; K21.9 Gastro-esophageal reflux disease without esophagitis; Z79.82 Long term (current) use of aspirin; I25.2 Old myocardial infarction; Z82.49 Family history of ischemic heart disease and other diseases of the circulatory system; Z83.3 Family history of diabetes mellitus; Z87.11 Personal history of peptic ulcer disease; Z90.710 Acquired absence of both cervix and uterus; Z95.1 Presence of aortocoronary bypass graft
CPT/HCPCS: 36415; 70450; 71010; 80053; 80061; 81001; 82607; 84443; 84484; 85027; 85610; 85730; 87641; 93005; 93306; 93880; 97530; 97535; 99285-25

== ENCOUNTER 2016-12-03 12:31 | Inpatient (IN) | payer MEDICARE ==
[~2016-12-03] VITALS: Ht 157.5 cm; Wt 59.1 kg
[~2016-12-03 12:31] MED LIST changes: +DOCU100C28 PO; -ESCI10TA PO; -ESCI10TA10 PO; +ESCITALOPRAM OX10 MG PO; +LEXAPRO10 MG PO; +NYST15PO9 TP; -NYST30PO9 TP; -UBID100C12 PO; +UBID100C40 PO
[2016-12-03] MEDS ORDERED: IV NORMAL SALINE 500ML BAG 500 ML IV ONE ×2 (12:45→13:15)
--- NOTE | 2016-12-03 12:53 | EKG ---
[facility] [address] [place] [address] Test Date: 2016-12-03 Test Time: 12:41:10 Pat Name: DEON ENGLE Department: Room: Gender: F Administrative Support Manager: : [id number] Requested By: CHETAN SINGH Order Number: [id number] Reading MD: Measurements Intervals [place] Rate: 87 P: -90 [place]: 150 QRS: -108 QRSD: 170 T: 77 QT: 430 QTc: 524 Interpretive Statements SUPRAVENTRICULAR RHYTHM ABNORMAL RIGHT SUPERIOR AXIS DEVIATION NON SPECIFIC INTRAVENTRICULAR BLOCK QRS(T) CONTOUR ABNORMALITY CONSISTENT WITH ANTEROLATERAL INFARCT POSSIBLY RECENT CONSISTENT WITH INFERIOR INFARCT POSSIBLY RECENT RI6.01 Unconfirmed report No previous ECG available for comparison
[2016-12-03 13:03] LABS: BASO % 0 % (0-3); EOS % 0 % (0-3); HEMATOCRIT 34.2 % (36.0-47.0); HEMOGLOBIN 11.3 g/dL (12.0-15.5); LYMPH % 12 % (24-48); MEAN CORPUSCULAR HEMOGLOBIN 29 pg (25-35); MEAN CORPUSCULAR HGB CONC 33 g/dL (31-37); MEAN CORPUSCULAR VOLUME 86 fL (79-100); MONO % 10 % (0-9); NEUT % 78 % (31-73); PLATELET COUNT 208 x10^3/uL (140-400); RED BLOOD COUNT 3.97 x10^6/uL (3.50-5.40); WHITE BLOOD COUNT 8.3 x10^3/uL (4.0-11.0)
--- NOTE | 2016-12-03 13:07 | RAD ---
Examination: Single frontal view the chest History: History of nausea. Comparison: 09/04/2016 Findings: The cardiomediastinal silhouette grossly appears unremarkable. Left-sided cardiac pacer is identified. There is no acute infiltrate or visualized pneumothorax. Impression: No acute cardiopulmonary findings.
[2016-12-03 13:17] LABS: CALCIUM 7.4 mg/dL (8.5-10.1); CREATININE 1.2 mg/dL (0.6-1.0); GFR 42.5; POTASSIUM 3.4 mmol/L (3.5-5.1)
[2016-12-03 13:23] LABS: ALBUMIN 2.1 g/dL (3.4-5.0); ALBUMIN/GLOBULIN RATIO 0.7 (1.0-1.7); TOTAL BILIRUBIN 0.3 mg/dL (0.2-1.0); TOTAL PROTEIN 5.2 g/dL (6.4-8.2)
--- NOTE | 2016-12-03 14:08 | PHYS DOC ---
Past Medical History Past Medical History: Anemia, Arthritis, CHF, COPD, Dementia, Diabetes-Type II , Hypertension, ID, P.U.D., Other Additional Past Medical Histor: DYSRYTHMIA Past Surgical History: Hysterectomy, Pacemaker, Other Additional Past Surgical Histo: CABG Alcohol Use: None Drug Use: None Adult General Chief Complaint Chief Complaint: NAUSEA/VOMITING/DIARRHA HPI HPI 86-year-old female who lives at a alf bedridden after a prior CVA with a history of coronary artery disease and CHF now sent to the emergency department for evaluation of suspected dehydration. Patient has been weak and staff became concerned that she was not drinking enough fluids and was becoming dehydrated. She does not have any specific complaints and is at her mental status baseline. Patient states she does have some intermittent nausea when she tries to eat since she doesn't have much of an appetite that she does not have active nausea or vomiting now and denies abdominal pain. She is currently asymptomatic except she feels generally weak which she states is normal for her. Review of Systems Review of Systems Constitutional: Denies fever or chills [] Eyes: Denies change in visual acuity, redness, or eye pain [] HENT: Denies nasal congestion or sore throat [] Respiratory: Denies cough or shortness of breath [] Cardiovascular: No additional information not addressed in HPI [] GI: Denies abdominal pain, nausea, vomiting, bloody stools or diarrhea [] : Denies dysuria or hematuria [] Musculoskeletal: Denies back pain or joint pain [] Integument: Denies rash or skin lesions [] Neurologic: Denies headache, focal weakness or sensory changes [] Endocrine: Denies polyuria or polydipsia [] Current Medications Current Medications Current Medications Medications (Trade) Dose Ordered Sig/Peggy Start Time Stop Time Status Last Admin Dose Admin Sodium Chloride 500 ml @ 500 mls/hr 1X ONCE 12/03/16 13:15 12/03/16 14:14 DC 12/03/16 14:19 500 MLS/HR Allergies Allergies Allergies Coded Allergies Type Severity Reaction Last Updated Verified No Known Drug Allergies 12/16/13 No Physical Exam Physical Exam Chronically weak appearing cachectic elderly female in no acute distress alert and communicative with dry mucous membranes. She is cooperative and appropriate with a nonfocal neurologic exam. Bilateral lower extremity chronic contractures. No wounds or skin lesions. Lungs clear regular rate and rhythm nontender abdomen other than as mentioned exam unremarkable Constitutional: no acute distress, non-toxic appearance. [] HENT: Normocephalic, atraumatic, bilateral external ears normal, oropharynx dry mucous membranes, no oral exudates, nose normal. [] Eyes: PERRLA, EOMI, conjunctiva normal, no discharge. [] Neck: Normal range of motion, no tenderness, supple, no stridor. [] Cardiovascular:Heart rate regular rhythm, no murmur [] Lungs & Thorax: Bilateral breath sounds clear to auscultation [] Abdomen: Bowel sounds normal, soft, no tenderness, no masses, no pulsatile masses. [] Skin: Warm, dry, no erythema, no rash. [] Back: No tenderness, no CVA tenderness. [] Extremities: No tenderness, no cyanosis, no clubbing, ROM intact, no edema. [] Neurologic: Alert and oriented X 3, 4 minus out of 5 generalized weakness with contractures bilateral lower extremities., normal sensory function, Psychologic: Flat affect., judgement normal, mood normal. [] Current Patient Data Vital Signs Vital Signs Date Time Temp Pulse Resp B/P (MAP) Pulse Ox O2 Delivery O2 Flow Rate FiO2 12/03/16 12:31 98.3 89 18 100/59 (73) 95 Room Air 98.3 Lab Values Laboratory Tests Test 12/03/16 12:58 White Blood Count 8.3 x10^3/uL (4.0-11.0) Red Blood Count 3.97 x10^6/uL (3.50-5.40) Hemoglobin 11.3 g/dL (12.0-15.5) L Hematocrit 34.2 % (36.0-47.0) L Mean Corpuscular Volume 86 fL (79-100) Mean Corpuscular Hemoglobin 29 pg (25-35) Mean Corpuscular Hemoglobin Concent 33 g/dL (31-37) Red Cell Distribution Width 14.0 % (11.5-14.5) Platelet Count 208 x10^3/uL (140-400) Neutrophils (%) (Auto) 78 % (31-73) H Lymphocytes (%) (Auto) 12 % (24-48) L Monocytes (%) (Auto) 10 % (0-9) H Eosinophils (%) (Auto) 0 % (0-3) Basophils (%) (Auto) 0 % (0-3) Neutrophils # (Auto) 6.4 x10^3uL (1.8-7.7) Lymphocytes # (Auto) 1.0 x10^3/uL (1.0-4.8) Monocytes # (Auto) 0.8 x10^3/uL (0.0-1.1) Eosinophils # (Auto) 0.0 x10^3/uL (0.0-0.7) Basophils # (Auto) 0.0 x10^3/uL (0.0-0.2) Sodium Level 154 mmol/L (136-145) H Potassium Level 3.4 mmol/L (3.5-5.1) L Chloride Level 115 mmol/L (98-107) H Carbon Dioxide Level 26 mmol/L (21-32) Anion Gap 13 (6-14) Blood Urea Nitrogen 47 mg/dL (7-20) H Creatinine 1.2 mg/dL (0.6-1.0) H Estimated GFR (Cockcroft-Gault) 42.5 BUN/Creatinine Ratio 39 (6-20) H Glucose Level 162 mg/dL (70-99) H Calcium Level 7.4 mg/dL (8.5-10.1) L Total Bilirubin 0.3 mg/dL (0.2-1.0) Aspartate Amino Transferase (AST) 26 U/L (15-37) Alanine Aminotransferase (ALT) 21 U/L (14-59) Alkaline Phosphatase 58 U/L (46-116) Troponin I Quantitative 0.042 ng/mL (0.000-0.055) Total Protein 5.2 g/dL (6.4-8.2) L Albumin 2.1 g/dL (3.4-5.0) L Albumin/Globulin Ratio 0.7 (1.0-1.7) L Thyroid Stimulating Hormone (TSH) 0.881 uIU/mL (0.358-3.74) Laboratory Tests 12/03/16 12:58 Laboratory Tests 12/03/16 12:58 EKG EKG EKG with ventricular paced rhythm at 87 no STEMI interpreted by me [] Radiology/Procedures Radiology/Procedures Chest x-ray with pacemaker chronic changes no acute disease interpreted by me [] Course & Med Decision Making Course & Med Decision Making Pertinent Labs and Imaging studies reviewed. (See chart for details) Elderly female with clinical signs of dehydration confirmed by laboratory results with severe prerenal azotemia BUN/creatinine 47 and 1.2 with a 39 x-ray she had a period sodium at 154 consistent with significant hypernatremia. Urinalysis still pending but remainder of workup unremarkable. Case discussed with patient's primary care doctor, Dr. Roth. Dr. Roth is aware of history and findings and agrees with inpatient admission to a [facility] telemetry bed on his service. 31 mins critical care [] Dragon Disclaimer Dragon Disclaimer This electronic medical record was generated, in whole or in part, using a voice recognition dictation system. Departure Departure Impression: Primary Impression: Severe dehydration Additional Impressions: Prerenal azotemia Hypernatremia Disposition: ADMITTED INPATIENT Admitting Physician: Orion Ralph Condition: GUARDED Referrals: ORION RALPH MD (PCP) Problem Qualifiers CHETAN SINGH MD Dec 03, 2016 14:08
[2016-12-03 14:21] LABS: BILIRUBIN,URINE SMALL (NEG); GLUCOSE,URINE NEGATIVE (NEG); NITRITE,URINE NEGATIVE (NEG); PH,URINE 5.5; PROTEIN,URINE 100 mg/dL (NEG-TRACE); UROBILINOGEN,URINE 0.2 mg/dL (0.2 mg/dL)
[2016-12-03 14:32] LABS: BACTERIA,URINE MANY /HPF (0-FEW); WBC,URINE >40 /HPF (0-4)
[2016-12-03] MEDS ORDERED: IV NORMAL SALINE 1000ML BAG 1,000 ML IV SCH (14:37)
[2016-12-03] MEDS ORDERED: SIMV20TA3 PO (16:21)
[2016-12-03] MEDS ORDERED: ERGO500027 PO (16:23)
[2016-12-03] MEDS ORDERED: MIRT15TA5 PO (16:24)
[2016-12-03] MEDS ORDERED: ONDANSETRON PF 4 MG/2 ML VIAL. IV PRN (16:30)
[2016-12-03] MEDS: FAMOTIDINE 20 MG/2 ML VIAL IVP SCH (18:20)
[2016-12-03 19:47] VITALS: BP 114/50
[2016-12-03] MEDS: SIMVASTATIN 20 MG TABLET PO SCH (20:30)
[2016-12-03] MEDS: MIRTAZAPINE 15 MG TABLET PO SCH (20:30)
[2016-12-03 23:30] VITALS: BP 124/60
[2016-12-04 02:21] VITALS: BP 125/58
--- NOTE | 2016-12-04 06:06 | ACF ---
Admission Forms Criteria DEHYDRATION Clinical Indications for Admission to Inpatient Care (Place 'X' for any and all applicable criteria): Admission is indicated for ANY ONE of the following (1)(2)(3)(4)(5): [X]I. Inpatient admission required rather than observation care (see Dehydration: Observation Care guideline as appropriate) because of ANY ONE of the following: [ ]a) Vomiting that is severe or persistent [X]b) Severe electrolyte abnormalities requiring inpatient care [ ]c) Hemodynamic instability [ ]d) IV fluid to replace significant ongoing losses (greater than 3 L/m2 per day (10) (11) [ ]e) Parenteral nutrition regimen that must be implemented on inpatient basis [ ]f) Other condition,treatment or monitoring requiring inpatient admission [ ]II. Serious cause for dehydration requiring acute hospitalization (eg, bowel obstruction, increased intracranial pressure, infectious cause) Extended stay beyond goal length of stay may be needed for(1)(3 )(4)(17): [ ]a) Chronic severe dehydration [ ]b) Persistent vital sign changes, severe electrolyte imbalance, or diagnosed cause of dehydration that requires continued hospitalization (eg, bowel obstruction, increased intracranial pressure) [ ]c) Older patients (65 years or older) [ ]d) Severe comorbid illness (eg, renal failure, heart failure, poorly controlled diabetes) The original [employer] content created by [employer] has been revised. The portions of the content which have been revised are identified through the use of italic text or in bold, and [facility] has neither reviewed nor approved the modified material. All other unmodified content is copyright [employer]. Please see references footnoted in the original [employer] edition 2016 Admission Criteria Met?: Yes NAVI VALVERDE Dec 04, 2016 06:06
[2016-12-04 07:00] VITALS: BP 143/69
--- NOTE | 2016-12-04 08:38 | PDOC1 ---
History and Physical Past Medical History Cardiovascular: CAD, CHF, HTN, Hyperlipidemia, Pulmonary hypertension Pulmonary: COPD CENTRAL NERVOUS SYSTEM: Dementia GI: GERD, Peptic Ulcer disease Heme/Onc: Anemia NOS Endocrine: Diabetes Past Surgical History Past Surgical History: Pacemaker, CABG, Cataract Removal, Hysterectomy, Other Family History Family History: Coronary Artery Disease, Diabetes, Hypertension Social History ALCOHOL: none Current Problem List Problem List Problems Medical Problems: (1) Hypernatremia Status: Acute (2) Prerenal azotemia Status: Acute (3) Severe dehydration Status: Acute Current Medications Current Medications Current Medications Medications (Trade) Dose Ordered Sig/Peggy Start Time Stop Time Status Last Admin Dose Admin Docusate Sodium (Colace) 100 mg DAILY 12/04/16 09:00 Ergocalciferol (Vitamin D2) 50,000 unit WEEKLY 12/10/16 09:00 Famotidine (Pepcid) 20 mg DAILY 12/03/16 17:00 12/03/16 18:20 20 MG Mirtazapine (Remeron) 15 mg HS 12/03/16 21:00 12/03/16 20:30 15 MG Ondansetron HCl (Zofran) 4 mg PRN Q6HRS PRN 12/03/16 16:30 Potassium Chloride/Sodium Chloride 1,000 ml @ 125 mls/hr Q8H 12/03/16 17:00 12/04/16 00:35 125 MLS/HR Simvastatin (Zocor) 20 mg HS 12/03/16 21:00 12/03/16 20:30 20 MG Sodium Chloride 1,000 ml @ 150 mls/hr Q6H40M 12/03/16 14:37 12/03/16 16:33 DC Allergies Allergies Allergies Coded Allergies Type Severity Reaction Last Updated Verified No Known Drug Allergies 12/16/13 No ROS Review of System CONSTITUTIONAL: No fever or chills EYES: No recent changes SKIN: No rash or itching CARDIOVASCULAR: No chest pain, syncope, palpitations, or edema RESPIRATORY: No SOB or cough GASTROINTESTINAL: No nausea, vomiting or abdominal pain NEUROLOGICAL: No headaches or weakness ENDOCRINE: No cold or heat intolerance GENITOURINARY: No urgency or frequency of urination MUSCULOSKELETAL: No back pain or joint pain LYMPHATICS: No enlarged lymph nodes PSYCHIATRIC: No anxiety or depression Physical Exam Physical Exam GEN.: No apparent distress. Alert and oriented. HEENT: Head is normocephalic, atraumatic NECK: Supple. LUNGS: Clear to auscultation. HEART: RRR, S1, S2 present. Peripheral pulses intact ABDOMEN: Soft, nontender. Positive bowel sounds. EXTREMITIES: Without any cyanosis. NEUROLOGIC: Normal speech, normal tone PSYCHIATRIC: Normal affect, normal mood. SKIN: No ulcerations Vitals Vitals Vital Signs Date Time Temp Pulse Resp B/P (MAP) Pulse Ox O2 Delivery O2 Flow Rate FiO2 12/04/16 07:00 98.4 69 16 143/69 (93) 93 Room Air 98.4 Labs Labs Laboratory Tests Test 12/03/16 12:58 12/03/16 14:12 White Blood Count 8.3 x10^3/uL (4.0-11.0) Red Blood Count 3.97 x10^6/uL (3.50-5.40) Hemoglobin 11.3 g/dL (12.0-15.5) Hematocrit 34.2 % (36.0-47.0) Mean Corpuscular Volume 86 fL (79-100) Mean Corpuscular Hemoglobin 29 pg (25-35) Mean Corpuscular Hemoglobin Concent 33 g/dL (31-37) Red Cell Distribution Width 14.0 % (11.5-14.5) Platelet Count 208 x10^3/uL (140-400) Neutrophils (%) (Auto) 78 % (31-73) Lymphocytes (%) (Auto) 12 % (24-48) Monocytes (%) (Auto) 10 % (0-9) Eosinophils (%) (Auto) 0 % (0-3) Basophils (%) (Auto) 0 % (0-3) Neutrophils # (Auto) 6.4 x10^3uL (1.8-7.7) Lymphocytes # (Auto) 1.0 x10^3/uL (1.0-4.8) Monocytes # (Auto) 0.8 x10^3/uL (0.0-1.1) Eosinophils # (Auto) 0.0 x10^3/uL (0.0-0.7) Basophils # (Auto) 0.0 x10^3/uL (0.0-0.2) Sodium Level 154 mmol/L (136-145) Potassium Level 3.4 mmol/L (3.5-5.1) Chloride Level 115 mmol/L (98-107) Carbon Dioxide Level 26 mmol/L (21-32) Anion Gap 13 (6-14) Blood Urea Nitrogen 47 mg/dL (7-20) Creatinine 1.2 mg/dL (0.6-1.0) Estimated GFR (Cockcroft-Gault) 42.5 BUN/Creatinine Ratio 39 (6-20) Glucose Level 162 mg/dL (70-99) Calcium Level 7.4 mg/dL (8.5-10.1) Total Bilirubin 0.3 mg/dL (0.2-1.0) Aspartate Amino Transf (AST/SGOT) 26 U/L (15-37) Alanine Aminotransferase (ALT/SGPT) 21 U/L (14-59) Alkaline Phosphatase 58 U/L (46-116) Troponin I Quantitative 0.042 ng/mL (0.000-0.055) Total Protein 5.2 g/dL (6.4-8.2) Albumin 2.1 g/dL (3.4-5.0) Albumin/Globulin Ratio 0.7 (1.0-1.7) Thyroid Stimulating Hormone (TSH) 0.881 uIU/mL (0.358-3.74) Urine Collection Type U cath Urine Color Yellow Urine Clarity Turbid Urine pH 5.5 Urine Specific [place] 1.020 Urine Protein 100 mg/dL (NEG-TRACE) Urine Glucose (UA) Negative mg/dL (NEG) Urine Ketones (Stick) Trace mg/dL (NEG) Urine Blood Small (NEG) Urine Nitrite Negative (NEG) Urine Bilirubin Small (NEG) Urine Urobilinogen Dipstick 0.2 mg/dL (0.2 mg/dL) Urine Leukocyte Esterase Large (NEG) Urine RBC 6-10 /HPF (0-2) Urine WBC >40 /HPF (0-4) Urine Bacteria Many /HPF (0-FEW) Urine Hyaline Casts Moderate /HPF Laboratory Tests Test 12/03/16 12:58 12/03/16 14:12 White Blood Count 8.3 x10^3/uL (4.0-11.0) Red Blood Count 3.97 x10^6/uL (3.50-5.40) Hemoglobin 11.3 g/dL (12.0-15.5) Hematocrit 34.2 % (36.0-47.0) Mean Corpuscular Volume 86 fL (79-100) Mean Corpuscular Hemoglobin 29 pg (25-35) Mean Corpuscular Hemoglobin Concent 33 g/dL (31-37) Red Cell Distribution Width 14.0 % (11.5-14.5) Platelet Count 208 x10^3/uL (140-400) Neutrophils (%) (Auto) 78 % (31-73) Lymphocytes (%) (Auto) 12 % (24-48) Monocytes (%) (Auto) 10 % (0-9) Eosinophils (%) (Auto) 0 % (0-3) Basophils (%) (Auto) 0 % (0-3) Neutrophils # (Auto) 6.4 x10^3uL (1.8-7.7) Lymphocytes # (Auto) 1.0 x10^3/uL (1.0-4.8) Monocytes # (Auto) 0.8 x10^3/uL (0.0-1.1) Eosinophils # (Auto) 0.0 x10^3/uL (0.0-0.7) Basophils # (Auto) 0.0 x10^3/uL (0.0-0.2) Sodium Level 154 mmol/L (136-145) Potassium Level 3.4 mmol/L (3.5-5.1) Chloride Level 115 mmol/L (98-107) Carbon Dioxide Level 26 mmol/L (21-32) Anion Gap 13 (6-14) Blood Urea Nitrogen 47 mg/dL (7-20) Creatinine 1.2 mg/dL (0.6-1.0) Estimated GFR (Cockcroft-Gault) 42.5 BUN/Creatinine Ratio 39 (6-20) Glucose Level 162 mg/dL (70-99) Calcium Level 7.4 mg/dL (8.5-10.1) Total Bilirubin 0.3 mg/dL (0.2-1.0) Aspartate Amino Transf (AST/SGOT) 26 U/L (15-37) Alanine Aminotransferase (ALT/SGPT) 21 U/L (14-59) Alkaline Phosphatase 58 U/L (46-116) Troponin I Quantitative 0.042 ng/mL (0.000-0.055) Total Protein 5.2 g/dL (6.4-8.2) Albumin 2.1 g/dL (3.4-5.0) Albumin/Globulin Ratio 0.7 (1.0-1.7) Thyroid Stimulating Hormone (TSH) 0.881 uIU/mL (0.358-3.74) Urine Collection Type U cath Urine Color Yellow Urine Clarity Turbid Urine pH 5.5 Urine Specific [place] 1.020 Urine Protein 100 mg/dL (NEG-TRACE) Urine Glucose (UA) Negative mg/dL (NEG) Urine Ketones (Stick) Trace mg/dL (NEG) Urine Blood Small (NEG) Urine Nitrite Negative (NEG) Urine Bilirubin Small (NEG) Urine Urobilinogen Dipstick 0.2 mg/dL (0.2 mg/dL) Urine Leukocyte Esterase Large (NEG) Urine RBC 6-10 /HPF (0-2) Urine WBC >40 /HPF (0-4) Urine Bacteria Many /HPF (0-FEW) Urine Hyaline Casts Moderate /HPF VTE Prophylaxis Ordered VTE Prophylaxis Devices: Yes VTE Pharmacological Prophylaxi: No Assessment/Plan Assessment/Plan patient admitted after 5-6 days of vomiting and diarrhea in alf with decreased level of responsiveness. I saw yesterday in alf and sent to hospital. yesterday she was minimally responsive and had unusual bowel sounds with tinkles and rushes with possible sbo. will check kub today but looks much better and awake and alert today and at baseline confusion. prerenal azotemia and hypernatremia on admission and will recheck labs am with hydration. has had urinary retention since admission with straight cath done twice with only 500cc return. will observe for now in that regards. ORION RALPH MD Dec 04, 2016 08:38
--- NOTE | 2016-12-04 08:39 | PDOC ---
GENERAL General: looks much better today. bowel sounds are more normal today but will still check kub. recheck labs am with ongoing hydration. ask urology opinion on urinary retention. chest clear, heart regular, and abdomen soft this am. Problems: VITAL SIGNS Vital Signs: Vital Signs Date Time Temp Pulse Resp B/P (MAP) Pulse Ox O2 Delivery O2 Flow Rate FiO2 12/04/16 07:00 98.4 69 16 143/69 (93) 93 Room Air 98.4 I & O I & O Intake and Output 12/04/16 07:00 Intake Total 4050 ml Output Total 500 ml Balance 3550 ml Intake Oral 1550 ml IV Total 2500 ml Output Urine Total 500 ml # Voids 1 # Bowel Movements 2 ALLERGIES Allergies: Allergies Coded Allergies Type Severity Reaction Last Updated Verified No Known Drug Allergies 12/16/13 No MEDS Medications: Current Medications Medications (Trade) Dose Ordered Sig/Peggy Start Time Stop Time Status Last Admin Dose Admin Docusate Sodium (Colace) 100 mg DAILY 12/04/16 09:00 Ergocalciferol (Vitamin D2) 50,000 unit WEEKLY 12/10/16 09:00 Famotidine (Pepcid) 20 mg DAILY 12/03/16 17:00 12/03/16 18:20 20 MG Mirtazapine (Remeron) 15 mg HS 12/03/16 21:00 12/03/16 20:30 15 MG Ondansetron HCl (Zofran) 4 mg PRN Q6HRS PRN 12/03/16 16:30 Potassium Chloride/Sodium Chloride 1,000 ml @ 125 mls/hr Q8H 12/03/16 17:00 12/04/16 00:35 125 MLS/HR Simvastatin (Zocor) 20 mg HS 12/03/16 21:00 12/03/16 20:30 20 MG Sodium Chloride 1,000 ml @ 150 mls/hr Q6H40M 12/03/16 14:37 12/03/16 16:33 DC LAB Lab: Laboratory Tests Test 12/03/16 12:58 12/03/16 14:12 White Blood Count 8.3 x10^3/uL (4.0-11.0) Red Blood Count 3.97 x10^6/uL (3.50-5.40) Hemoglobin 11.3 g/dL (12.0-15.5) Hematocrit 34.2 % (36.0-47.0) Mean Corpuscular Volume 86 fL (79-100) Mean Corpuscular Hemoglobin 29 pg (25-35) Mean Corpuscular Hemoglobin Concent 33 g/dL (31-37) Red Cell Distribution Width 14.0 % (11.5-14.5) Platelet Count 208 x10^3/uL (140-400) Neutrophils (%) (Auto) 78 % (31-73) Lymphocytes (%) (Auto) 12 % (24-48) Monocytes (%) (Auto) 10 % (0-9) Eosinophils (%) (Auto) 0 % (0-3) Basophils (%) (Auto) 0 % (0-3) Neutrophils # (Auto) 6.4 x10^3uL (1.8-7.7) Lymphocytes # (Auto) 1.0 x10^3/uL (1.0-4.8) Monocytes # (Auto) 0.8 x10^3/uL (0.0-1.1) Eosinophils # (Auto) 0.0 x10^3/uL (0.0-0.7) Basophils # (Auto) 0.0 x10^3/uL (0.0-0.2) Sodium Level 154 mmol/L (136-145) Potassium Level 3.4 mmol/L (3.5-5.1) Chloride Level 115 mmol/L (98-107) Carbon Dioxide Level 26 mmol/L (21-32) Anion Gap 13 (6-14) Blood Urea Nitrogen 47 mg/dL (7-20) Creatinine 1.2 mg/dL (0.6-1.0) Estimated GFR (Cockcroft-Gault) 42.5 BUN/Creatinine Ratio 39 (6-20) Glucose Level 162 mg/dL (70-99) Calcium Level 7.4 mg/dL (8.5-10.1) Total Bilirubin 0.3 mg/dL (0.2-1.0) Aspartate Amino Transf (AST/SGOT) 26 U/L (15-37) Alanine Aminotransferase (ALT/SGPT) 21 U/L (14-59) Alkaline Phosphatase 58 U/L (46-116) Troponin I Quantitative 0.042 ng/mL (0.000-0.055) Total Protein 5.2 g/dL (6.4-8.2) Albumin 2.1 g/dL (3.4-5.0) Albumin/Globulin Ratio 0.7 (1.0-1.7) Thyroid Stimulating Hormone (TSH) 0.881 uIU/mL (0.358-3.74) Urine Collection Type U cath Urine Color Yellow Urine Clarity Turbid Urine pH 5.5 Urine Specific Register 1.020 Urine Protein 100 mg/dL (NEG-TRACE) Urine Glucose (UA) Negative mg/dL (NEG) Urine Ketones (Stick) Trace mg/dL (NEG) Urine Blood Small (NEG) Urine Nitrite Negative (NEG) Urine Bilirubin Small (NEG) Urine Urobilinogen Dipstick 0.2 mg/dL (0.2 mg/dL) Urine Leukocyte Esterase Large (NEG) Urine RBC 6-10 /HPF (0-2) Urine WBC >40 /HPF (0-4) Urine Bacteria Many /HPF (0-FEW) Urine Hyaline Casts Moderate /HPF ORION RALPH MD Dec 04, 2016 08:39
[2016-12-04] MEDS: FAMOTIDINE 20 MG/2 ML VIAL IVP SCH (08:48)
[2016-12-04] MEDS: DOCUSATE SODIUM 100 MG CAPSULE. PO SCH (08:49)
--- NOTE | 2016-12-04 10:19 | RAD ---
Portable abdomen, 12/04/2016: History: Vomiting There is gaseous distention of predominantly large bowel including the sigmoid colon and a portion of the transverse colon. There is gas and stool in the ascending colon and descending colon without gaseous distention. The findings suggest an atonic colon/ileus. No organomegaly is seen. There are moderate scattered arterial calcifications. The bony structures are demineralized. There is moderate multilevel degenerative change in the spine. 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 Distal sigmoid obstruction such as a volvulus is less likely. CT scanning may be useful for further evaluation, if clinically indicated.
[2016-12-04 11:00] VITALS: BP 125/60
[2016-12-04 15:00] VITALS: BP 131/63
[2016-12-04] MEDS: ACETAMINOPHEN 500 MG TABLET PO PRN ×2 (15:34→22:16)
[2016-12-04 19:25] VITALS: BP 125/52
[2016-12-04] MEDS: SIMVASTATIN 20 MG TABLET PO SCH (20:44)
[2016-12-04] MEDS: MIRTAZAPINE 15 MG TABLET PO SCH (20:44)
[2016-12-04 22:08] VITALS: BP 148/64
[2016-12-05] VITALS (7 sets, daily range): BP systolic 87–141; BP diastolic 43–63
[2016-12-05 05:29] LABS: BASO % 0 % (0-3); EOS % 1 % (0-3); HEMATOCRIT 29.4 % (36.0-47.0); LYMPH # 0.7 x10^3/uL (1.0-4.8); LYMPH % 13 % (24-48); MEAN CORPUSCULAR HEMOGLOBIN 29 pg (25-35); MEAN CORPUSCULAR HGB CONC 34 g/dL (31-37); MEAN CORPUSCULAR VOLUME 85 fL (79-100); MONO % 9 % (0-9); NEUT % 77 % (31-73); PLATELET COUNT 170 x10^3/uL (140-400); RED BLOOD COUNT 3.48 x10^6/uL (3.50-5.40); RED CELL DISTRIBUTION WIDTH 13.9 % (11.5-14.5); WHITE BLOOD COUNT 5.5 x10^3/uL (4.0-11.0)
[2016-12-05 06:12] LABS: ALBUMIN 1.7 g/dL (3.4-5.0); ALBUMIN/GLOBULIN RATIO 0.6 (1.0-1.7); CALCIUM 7.2 mg/dL (8.5-10.1); CREATININE 0.7 mg/dL (0.6-1.0); GFR 79.2; POTASSIUM 3.6 mmol/L (3.5-5.1); TOTAL BILIRUBIN 0.2 mg/dL (0.2-1.0); TOTAL PROTEIN 4.6 g/dL (6.4-8.2)
--- NOTE | 2016-12-05 08:28 | PDOC ---
GENERAL General: vss with temp to 101.2 max. cbc wnl with mild anemia. Na down to 144, creatinine down to 0.7, and BUN down to 20 with hydration. some developing edema so will decrease iv rate to 50cc/hr. KUB with large bowel dilation cw colonic atony vs ileus. abdomen is quite distended and typanitic this am. chest clear and heart regular and patient actually looks much better other than abdomen. will ask for GI opinion. probable uti on admission lab and will start rocephin pending urine culture results. Problems: VITAL SIGNS Vital Signs: Vital Signs Date Time Temp Pulse Resp B/P (MAP) Pulse Ox O2 Delivery O2 Flow Rate FiO2 12/05/16 07:00 99.5 81 20 141/63 (89) 94 Room Air 99.5 I & O I & O Intake and Output 12/05/16 07:00 Intake Total 2980 ml Balance 2980 ml Intake Oral 1480 ml IV Total 1500 ml # Voids 5 # Bowel Movements 1 ALLERGIES Allergies: Allergies Coded Allergies Type Severity Reaction Last Updated Verified No Known Drug Allergies 12/16/13 No MEDS Medications: Current Medications Medications (Trade) Dose Ordered Sig/Peggy Start Time Stop Time Status Last Admin Dose Admin Acetaminophen (Tylenol) 500 mg PRN Q4HRS PRN 12/04/16 15:30 12/04/16 22:16 500 MG Docusate Sodium (Colace) 100 mg DAILY 12/04/16 09:00 Ergocalciferol (Vitamin D2) 50,000 unit WEEKLY 12/10/16 09:00 Famotidine (Pepcid) 20 mg DAILY 12/03/16 17:00 12/04/16 08:48 20 MG Mirtazapine (Remeron) 15 mg HS 12/03/16 21:00 12/04/16 20:44 15 MG Ondansetron HCl (Zofran) 4 mg PRN Q6HRS PRN 12/03/16 16:30 Potassium Chloride/Sodium Chloride 1,000 ml @ 125 mls/hr Q8H 12/03/16 17:00 12/05/16 01:34 125 MLS/HR Simvastatin (Zocor) 20 mg HS 12/03/16 21:00 12/04/16 20:44 20 MG Sodium Chloride 1,000 ml @ 150 mls/hr Q6H40M 12/03/16 14:37 12/03/16 16:33 DC LAB Lab: Laboratory Tests Test 12/05/16 04:50 White Blood Count 5.5 x10^3/uL (4.0-11.0) Red Blood Count 3.48 x10^6/uL (3.50-5.40) Hemoglobin 10.0 g/dL (12.0-15.5) Hematocrit 29.4 % (36.0-47.0) Mean Corpuscular Volume 85 fL (79-100) Mean Corpuscular Hemoglobin 29 pg (25-35) Mean Corpuscular Hemoglobin Concent 34 g/dL (31-37) Red Cell Distribution Width 13.9 % (11.5-14.5) Platelet Count 170 x10^3/uL (140-400) Neutrophils (%) (Auto) 77 % (31-73) Lymphocytes (%) (Auto) 13 % (24-48) Monocytes (%) (Auto) 9 % (0-9) Eosinophils (%) (Auto) 1 % (0-3) Basophils (%) (Auto) 0 % (0-3) Neutrophils # (Auto) 4.2 x10^3uL (1.8-7.7) Lymphocytes # (Auto) 0.7 x10^3/uL (1.0-4.8) Monocytes # (Auto) 0.5 x10^3/uL (0.0-1.1) Eosinophils # (Auto) 0.1 x10^3/uL (0.0-0.7) Basophils # (Auto) 0.0 x10^3/uL (0.0-0.2) Sodium Level 144 mmol/L (136-145) Potassium Level 3.6 mmol/L (3.5-5.1) Chloride Level 115 mmol/L (98-107) Carbon Dioxide Level 18 mmol/L (21-32) Anion Gap 11 (6-14) Blood Urea Nitrogen 20 mg/dL (7-20) Creatinine 0.7 mg/dL (0.6-1.0) Estimated GFR (Cockcroft-Gault) 79.2 BUN/Creatinine Ratio 29 (6-20) Glucose Level 128 mg/dL (70-99) Calcium Level 7.2 mg/dL (8.5-10.1) Total Bilirubin 0.2 mg/dL (0.2-1.0) Aspartate Amino Transf (AST/SGOT) 18 U/L (15-37) Alanine Aminotransferase (ALT/SGPT) 12 U/L (14-59) Alkaline Phosphatase 50 U/L (46-116) Total Protein 4.6 g/dL (6.4-8.2) Albumin 1.7 g/dL (3.4-5.0) Albumin/Globulin Ratio 0.6 (1.0-1.7) Nutrition Consultation Dietary Evaluation: Recommendations by RD: Increase Calorie Intake, Protein supplementation Comments: Add Boost Breeze TID (250 calories/9 grams protein per serving) Encourage good PO intake Expected Outcomes/Goals: diet tolerance diet advancement Malnutrition Findings: Body Fat Depletion (Non Severe: Mild Depletion Reduced Slope Tender Strength: N/A Malnutrition related to morbid: No Weight Status: Appropriate ORION RALPH MD Dec 05, 2016 08:28
[2016-12-05] MEDS: DOCUSATE SODIUM 100 MG CAPSULE. PO SCH (09:00)
[2016-12-05] MEDS: FAMOTIDINE 20 MG/2 ML VIAL IVP SCH (09:01)
--- NOTE | 2016-12-05 11:18 | PDOC2 ---
GI CONSULT Reason For Consult: Abd distention HPI: HPI: 86 y/o female previously evaluated by Dr. Nolasco and Dr. Dudley in 02/[address] w/ rectal thickening, decreased appetite, and anemia. On this occasion, admitted 12/03/16 from [place] for dehydration. History from RN and daughter -in-law. GI consulted re: abdominal distention, abnormal KUB, nausea, and tympanic bowel sounds. RN reports "seepage of stool." Has also had a fever, RN noted swollen labia. Had been on clears, kept NPO now. C Diff was negative. [id number] reports abdomen might be more distended than usual, also think had intermittent diarrhea at the long term. Believes colonoscopy ~20 years ago. No bleeding. PMH: PMH: CAD, CHF, HTN, HLD, pulm HTN, COPD, dementia, GERD/PUD, anemia, DM, pacemaker, CABG, cataract extraction, hysterectomy FH: Family History: No pertinent hx, Hypertension Social History: Smoke: No ALCOHOL: none Drugs: None ROS: Difficult to obtain from pt. GEN: +fevers CV: Denies chest pain RESP: Denies shortness of air GI: Per HPI NEURO: +forgetful MSK: +weakness Vitals: Vitals: Vital Signs Date Time Temp Pulse Resp B/P (MAP) Pulse Ox O2 Delivery O2 Flow Rate FiO2 12/05/16 10:55 99.8 99 18 123/49 (73) 95 Room Air 99.8 Labs: Labs: Laboratory Tests Test 12/05/16 04:50 White Blood Count 5.5 x10^3/uL (4.0-11.0) Red Blood Count 3.48 x10^6/uL (3.50-5.40) Hemoglobin 10.0 g/dL (12.0-15.5) Hematocrit 29.4 % (36.0-47.0) Mean Corpuscular Volume 85 fL (79-100) Mean Corpuscular Hemoglobin 29 pg (25-35) Mean Corpuscular Hemoglobin Concent 34 g/dL (31-37) Red Cell Distribution Width 13.9 % (11.5-14.5) Platelet Count 170 x10^3/uL (140-400) Neutrophils (%) (Auto) 77 % (31-73) Lymphocytes (%) (Auto) 13 % (24-48) Monocytes (%) (Auto) 9 % (0-9) Eosinophils (%) (Auto) 1 % (0-3) Basophils (%) (Auto) 0 % (0-3) Neutrophils # (Auto) 4.2 x10^3uL (1.8-7.7) Lymphocytes # (Auto) 0.7 x10^3/uL (1.0-4.8) Monocytes # (Auto) 0.5 x10^3/uL (0.0-1.1) Eosinophils # (Auto) 0.1 x10^3/uL (0.0-0.7) Basophils # (Auto) 0.0 x10^3/uL (0.0-0.2) Sodium Level 144 mmol/L (136-145) Potassium Level 3.6 mmol/L (3.5-5.1) Chloride Level 115 mmol/L (98-107) Carbon Dioxide Level 18 mmol/L (21-32) Anion Gap 11 (6-14) Blood Urea Nitrogen 20 mg/dL (7-20) Creatinine 0.7 mg/dL (0.6-1.0) Estimated GFR (Cockcroft-Gault) 79.2 BUN/Creatinine Ratio 29 (6-20) Glucose Level 128 mg/dL (70-99) Calcium Level 7.2 mg/dL (8.5-10.1) Total Bilirubin 0.2 mg/dL (0.2-1.0) Aspartate Amino Transf (AST/SGOT) 18 U/L (15-37) Alanine Aminotransferase (ALT/SGPT) 12 U/L (14-59) Alkaline Phosphatase 50 U/L (46-116) Total Protein 4.6 g/dL (6.4-8.2) Albumin 1.7 g/dL (3.4-5.0) Albumin/Globulin Ratio 0.6 (1.0-1.7) Allergies: Coded Allergies: No Known Drug Allergies (Unverified , 12/16/13) Medications: Current Medications Medications (Trade) Dose Ordered Sig/Peggy Route PRN Reason Start Time Stop Time Status Last Admin Dose Admin Acetaminophen (Tylenol) 500 mg PRN Q4HRS PRN PO MILD PAIN / TEMP 12/04/16 15:30 12/04/16 22:16 Ceftriaxone Sodium 1 gm/ Sodium Chloride 50 ml @ 100 mls/hr Q24H IV 12/05/16 09:00 12/05/16 09:34 Imaging: Imaging: CXR Impression: No acute cardiopulmonary findings. 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 Distal sigmoid obstruction such as a volvulus is less likely. CT scanning may be useful for further evaluation, if clinically indicated. 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 Will review w/ Dr. Dudley. ?check for impaction (?overflow incontinence) DONNA RIVAS Dec 05, 2016 11:18
[2016-12-05] MEDS: ACETAMINOPHEN 325 MG SUPP.RECT. PR PRN (13:44)
[2016-12-05] MEDS ORDERED: BISACODYL 10 MG SUPP.RECT. PR ONE (13:45)
[2016-12-05] MEDS: MIRTAZAPINE 15 MG TABLET PO SCH (21:00)
[2016-12-05] MEDS: SIMVASTATIN 20 MG TABLET PO SCH (21:00)
[2016-12-06 03:00] VITALS: BP 136/63
[2016-12-06 06:23] LABS: CALCIUM 7.3 mg/dL (8.5-10.1); CREATININE 0.7 mg/dL (0.6-1.0); GFR 79.2; POTASSIUM 3.7 mmol/L (3.5-5.1)
[2016-12-06 07:00] VITALS: BP 115/59
--- NOTE | 2016-12-06 08:29 | PDOC ---
GENERAL General: vss with tmax 99.8. awake and alert and abdomen still diffusely tender but less distended this am. chest and heart ok. aerococcus on urine culture to date and will continue rocephin for same. suspect GI intervention today. Problems: VITAL SIGNS Vital Signs: Vital Signs Date Time Temp Pulse Resp B/P (MAP) Pulse Ox O2 Delivery O2 Flow Rate FiO2 12/06/16 03:00 97.4 90 16 136/63 (87) 94 Room Air 97.4 I & O I & O Intake and Output 12/06/16 07:00 Intake Total 1215 ml Balance 1215 ml Intake Oral 240 ml IV Total 975 ml # Voids 7 ALLERGIES Allergies: Allergies Coded Allergies Type Severity Reaction Last Updated Verified No Known Drug Allergies 12/16/13 No MEDS Medications: Current Medications Medications (Trade) Dose Ordered Sig/Peggy Start Time Stop Time Status Last Admin Dose Admin Acetaminophen (Tylenol) 325 mg PRN Q6HRS PRN 12/05/16 13:45 12/05/16 13:44 325 MG Bisacodyl (Dulcolax Supp) 10 mg 1X ONCE 12/05/16 13:45 12/05/16 13:51 DC 12/05/16 13:56 10 MG Ceftriaxone Sodium 1 gm/ Sodium Chloride 50 ml @ 100 mls/hr Q24H 12/05/16 09:00 12/05/16 09:34 100 MLS/HR Docusate Sodium (Colace) 100 mg DAILY 12/04/16 09:00 Ergocalciferol (Vitamin D2) 50,000 unit WEEKLY 12/10/16 09:00 Famotidine (Pepcid) 20 mg DAILY 12/03/16 17:00 12/05/16 09:01 20 MG Mirtazapine (Remeron) 15 mg HS 12/03/16 21:00 12/04/16 20:44 15 MG Ondansetron HCl (Zofran) 4 mg PRN Q6HRS PRN 12/03/16 16:30 Potassium Chloride/Sodium Chloride 1,000 ml @ 50 mls/hr Q20H 12/03/16 17:00 12/06/16 04:37 50 MLS/HR Simvastatin (Zocor) 20 mg HS 12/03/16 21:00 12/04/16 20:44 20 MG Sodium Chloride 1,000 ml @ 150 mls/hr Q6H40M 12/03/16 14:37 12/03/16 16:33 DC LAB Lab: Laboratory Tests Test 12/05/16 18:15 12/06/16 00:00 12/06/16 04:50 12/06/16 06:59 Glucose (Fingerstick) 135 mg/dL (70-99) 107 mg/dL (70-99) 100 mg/dL (70-99) Sodium Level 142 mmol/L (136-145) Potassium Level 3.7 mmol/L (3.5-5.1) Chloride Level 118 mmol/L (98-107) Carbon Dioxide Level 13 mmol/L (21-32) Anion Gap 11 (6-14) Blood Urea Nitrogen 15 mg/dL (7-20) Creatinine 0.7 mg/dL (0.6-1.0) Estimated GFR (Cockcroft-Gault) 79.2 Glucose Level 103 mg/dL (70-99) Calcium Level 7.3 mg/dL (8.5-10.1) Nutrition Consultation Dietary Evaluation: Recommendations by RD: Increase Calorie Intake, Protein supplementation Comments: Add Boost Breeze TID (250 calories/9 grams protein per serving) Encourage good PO intake Expected Outcomes/Goals: diet tolerance diet advancement Malnutrition Findings: Body Fat Depletion (Non Severe: Mild Depletion Reduced Separator Inserter Strength: N/A Malnutrition related to morbid: No Weight Status: Appropriate ORION RALPH MD Dec 06, 2016 08:28
--- NOTE | 2016-12-06 09:32 | PDOC ---
Subjective: Subjective: Denies pain, thirsty. Objective: Objective: Per RN - received report of diarrhea after supp. yesterday, apparently no stools overnight. Vital Signs: Vital Signs Date Time Temp Pulse Resp B/P (MAP) Pulse Ox O2 Delivery O2 Flow Rate FiO2 12/06/16 07:00 98.5 91 17 115/59 (77) 93 Room Air 98.5 Labs: Laboratory Tests Test 12/05/16 18:15 12/06/16 00:00 12/06/16 04:50 12/06/16 06:59 Glucose (Fingerstick) 135 mg/dL 107 mg/dL 100 mg/dL Sodium Level 142 mmol/L Potassium Level 3.7 mmol/L Chloride Level 118 mmol/L Carbon Dioxide Level 13 mmol/L Anion Gap 11 Blood Urea Nitrogen 15 mg/dL Creatinine 0.7 mg/dL Estimated GFR (Cockcroft-Gault) 79.2 Glucose Level 103 mg/dL Calcium Level 7.3 mg/dL PE: GEN: NAD, was asleep LUNGS: clear HEART: S1S2 ABD: still distended though some better, ?tender, tympanic (again mostly left) NEURO/PSYCH: awake/alert A/P: Abdominal distention/discomfort -KUB 12/04/16: gaseous distention of large bowel (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 DONNA RIVAS Dec 06, 2016 09:32
--- NOTE | 2016-12-06 09:56 | PDOC2 ---
UROLOGY CONSULT Date of Admission DATE: 12/06/16 TIME: 09:54 ROS ROS: RESPIRATORY: Shortness of breath denies. Cough denies. UROLOGY: Denies blood in urine. Denies difficulty urinating Current Medications Current Medications Sodium Chloride 500 ml @ 500 mls/hr 1X ONCE IV Last administered on 12/03/16 13:06; Start 12/03/16 at 12:45; Stop 12/03/16 at 13:44; Status DC Sodium Chloride 500 ml @ 500 mls/hr 1X ONCE IV Last administered on 12/03/16 14:19; Start 12/03/16 at 13:15; Stop 12/03/16 at 14:14; Status DC Sodium Chloride 1,000 ml @ 150 mls/hr Q6H40M IV ; Start 12/03/16 at 14:37; Stop 12/03/16 at 16:33; Status DC Docusate Sodium (Colace) 100 mg DAILY PO ; Start 12/04/16 at 09:00 Simvastatin (Zocor) 20 mg HS PO Last administered on 12/04/16 20:44; Start 12/03/16 at 21:00 Ergocalciferol (Vitamin D2) 50,000 unit WEEKLY PO ; Start 12/10/16 at 09:00 Mirtazapine (Remeron) 15 mg HS PO Last administered on 12/04/16 20:44; Start 12/03/16 at 21:00 Ondansetron HCl (Zofran) 4 mg PRN Q6HRS PRN IV NAUSEA/VOMITING; Start 12/03/16 at 16:30 Famotidine (Pepcid) 20 mg DAILY IVP Last administered on 12/05/16 09:01; Start 12/03/16 at 17:00 Potassium Chloride/Sodium Chloride 1,000 ml @ 50 mls/hr Q20H IV Last administered on 12/06/16 04:37; Start 12/03/16 at 17:00 Acetaminophen (Tylenol) 500 mg PRN Q4HRS PRN PO MILD PAIN / TEMP Last administered on 12/04/16 22:16; Start 12/04/16 at 15:30 Ceftriaxone Sodium 1 gm/ Sodium Chloride 50 ml @ 100 mls/hr Q24H IV Last administered on 12/05/16 09:34; Start 12/05/16 at 09:00 Acetaminophen (Tylenol) 325 mg PRN Q6HRS PRN AR MILD PAIN / TEMP Last administered on 12/05/16 13:44; Start 12/05/16 at 13:45 Bisacodyl (Dulcolax Supp) 10 mg 1X ONCE AR Last administered on 12/05/16 13: 56; Start 12/05/16 at 13:45; Stop 12/05/16 at 13:51; Status DC Active Scripts Active Coreg (Carvedilol) 12.5 Mg Tablet 1 Tab PO BID Klor-Con M20 (Potassium Chloride) 20 Meq Tablet.er 20 Meq PO [id number] Reported Mirtazapine 15 Mg Tab.rapdis 15 Mg PO HS Vitamin D2 (Ergocalciferol (Vitamin D2)) 50,000 Unit Capsule 1 Cap PO WEEKLY Simvastatin 20 Mg Tablet 20 PO HS Docusate Sodium 100 Mg Capsule 100 Mg PO DAILY Norvasc (Amlodipine Besylate) 10 Mg Tablet 10 Mg PO DAILY LAST DOSE: 08/20/15 AM NEXT DOSE: 08/21/15 AM Miralax (Polyethylene Glycol 3350) 119 Gm Powder 17 Gm PO DAILY Acetaminophen 8 Hour (Acetaminophen) 650 Mg Tablet.er 650 Mg PO PRN Q4HRS PRN Allergies: Coded Allergies: No Known Drug Allergies (Unverified , 12/16/13) Physical Examination PHYSICAL EXAMINATION: GENERAL: Gen. appearance: No acute distress. Mood/affect: Pleasant. HEENT: Head: Normocephalic, atraumatic. Airway Impairment: No. CHEST: Shape and expansion: Normal. Expansion: Normal. SKIN: General: Warm. Color: Good. GENITOURINARY:External genitalia - wnl. NEUROLOGICAL: Mental status: Alert and oriented 3. Language: Normal. VITALS Vital Signs Date Time Temp Pulse Resp B/P (MAP) Pulse Ox O2 Delivery O2 Flow Rate FiO2 12/06/16 07:00 98.5 91 17 115/59 (77) 93 Room Air 98.5 Labs Laboratory Tests Test 12/05/16 04:50 12/05/16 18:15 12/06/16 00:00 12/06/16 04:50 White Blood Count 5.5 x10^3/uL (4.0-11.0) Red Blood Count 3.48 x10^6/uL (3.50-5.40) Hemoglobin 10.0 g/dL (12.0-15.5) Hematocrit 29.4 % (36.0-47.0) Mean Corpuscular Volume 85 fL (79-100) Mean Corpuscular Hemoglobin 29 pg (25-35) Mean Corpuscular Hemoglobin Concent 34 g/dL (31-37) Red Cell Distribution Width 13.9 % (11.5-14.5) Platelet Count 170 x10^3/uL (140-400) Neutrophils (%) (Auto) 77 % (31-73) Lymphocytes (%) (Auto) 13 % (24-48) Monocytes (%) (Auto) 9 % (0-9) Eosinophils (%) (Auto) 1 % (0-3) Basophils (%) (Auto) 0 % (0-3) Neutrophils # (Auto) 4.2 x10^3uL (1.8-7.7) Lymphocytes # (Auto) 0.7 x10^3/uL (1.0-4.8) Monocytes # (Auto) 0.5 x10^3/uL (0.0-1.1) Eosinophils # (Auto) 0.1 x10^3/uL (0.0-0.7) Basophils # (Auto) 0.0 x10^3/uL (0.0-0.2) Sodium Level 144 mmol/L (136-145) 142 mmol/L (136-145) Potassium Level 3.6 mmol/L (3.5-5.1) 3.7 mmol/L (3.5-5.1) Chloride Level 115 mmol/L (98-107) 118 mmol/L (98-107) Carbon Dioxide Level 18 mmol/L (21-32) 13 mmol/L (21-32) Anion Gap 11 (6-14) 11 (6-14) Blood Urea Nitrogen 20 mg/dL (7-20) 15 mg/dL (7-20) Creatinine 0.7 mg/dL (0.6-1.0) 0.7 mg/dL (0.6-1.0) Estimated GFR (Cockcroft-Gault) 79.2 79.2 BUN/Creatinine Ratio 29 (6-20) Glucose Level 128 mg/dL (70-99) 103 mg/dL (70-99) Calcium Level 7.2 mg/dL (8.5-10.1) 7.3 mg/dL (8.5-10.1) Total Bilirubin 0.2 mg/dL (0.2-1.0) Aspartate Amino Transf (AST/SGOT) 18 U/L (15-37) Alanine Aminotransferase (ALT/SGPT) 12 U/L (14-59) Alkaline Phosphatase 50 U/L (46-116) Total Protein 4.6 g/dL (6.4-8.2) Albumin 1.7 g/dL (3.4-5.0) Albumin/Globulin Ratio 0.6 (1.0-1.7) Glucose (Fingerstick) 135 mg/dL (70-99) 107 mg/dL (70-99) Test 12/06/16 06:59 Glucose (Fingerstick) 100 mg/dL (70-99) Laboratory Tests Test 12/05/16 18:15 12/06/16 00:00 12/06/16 04:50 12/06/16 06:59 Glucose (Fingerstick) 135 mg/dL (70-99) 107 mg/dL (70-99) 100 mg/dL (70-99) Sodium Level 142 mmol/L (136-145) Potassium Level 3.7 mmol/L (3.5-5.1) Chloride Level 118 mmol/L (98-107) Carbon Dioxide Level 13 mmol/L (21-32) Anion Gap 11 (6-14) Blood Urea Nitrogen 15 mg/dL (7-20) Creatinine 0.7 mg/dL (0.6-1.0) Estimated GFR (Cockcroft-Gault) 79.2 Glucose Level 103 mg/dL (70-99) Calcium Level 7.3 mg/dL (8.5-10.1) Assessment/Plan The patient is a 86-year-old white female who is admitted for vomiting and diarrhea. Patient was checked during her hospitalization and found to have urinary residuals in the 400-500 range. The patient is not a good historian and its unsure whether the patient is truly postvoid A she does wear depends. He can states she does not have any urologic problems normally and has not had any urologic operations. The abdomen is soft and nontender. There is no CVA tenderness. We'll go ahead and try to get some accurate postvoid residuals with the ultrasound and if the patient is truly retaining large amounts then we'll plan on doing intermittent catheter. Patient follow up with urology at 2 in the next week or 2 for further evaluation and treatment. ELLIOT GUERRA MD Dec 06, 2016 09:56
--- NOTE | 2016-12-06 09:59 | PDOC ---
PROGRESS NOTES Subjective Subjective Pt. with elevated urinary residuals Objective Objective Vital Signs Date Time Temp Pulse Resp B/P (MAP) Pulse Ox O2 Delivery O2 Flow Rate FiO2 12/06/16 07:00 98.5 91 17 115/59 (77) 93 Room Air 98.5 Intake and Output 12/06/16 06:59 Intake Total 1215 ml Balance 1215 ml Intake Oral 240 ml IV Total 975 ml # Voids 7 Physical Exam Physical Exam abd-soft, non-tender Plan Plan of Care Check true PVR with renal and bladder sono treat uti I abnd O cath TID-prn F/U [facility] uroplogy in 1-2 weeks Problems Medical Problems: (1) Hypernatremia Status: Acute (2) Prerenal azotemia Status: Acute (3) Severe dehydration Status: Acute Comment Review of Relevant I have reviewed the following items mariaelena (where applicable) has been applied. Labs Laboratory Tests Test 12/05/16 04:50 12/05/16 18:15 12/06/16 00:00 12/06/16 04:50 White Blood Count 5.5 x10^3/uL (4.0-11.0) Red Blood Count 3.48 x10^6/uL (3.50-5.40) Hemoglobin 10.0 g/dL (12.0-15.5) Hematocrit 29.4 % (36.0-47.0) Mean Corpuscular Volume 85 fL (79-100) Mean Corpuscular Hemoglobin 29 pg (25-35) Mean Corpuscular Hemoglobin Concent 34 g/dL (31-37) Red Cell Distribution Width 13.9 % (11.5-14.5) Platelet Count 170 x10^3/uL (140-400) Neutrophils (%) (Auto) 77 % (31-73) Lymphocytes (%) (Auto) 13 % (24-48) Monocytes (%) (Auto) 9 % (0-9) Eosinophils (%) (Auto) 1 % (0-3) Basophils (%) (Auto) 0 % (0-3) Neutrophils # (Auto) 4.2 x10^3uL (1.8-7.7) Lymphocytes # (Auto) 0.7 x10^3/uL (1.0-4.8) Monocytes # (Auto) 0.5 x10^3/uL (0.0-1.1) Eosinophils # (Auto) 0.1 x10^3/uL (0.0-0.7) Basophils # (Auto) 0.0 x10^3/uL (0.0-0.2) Sodium Level 144 mmol/L (136-145) 142 mmol/L (136-145) Potassium Level 3.6 mmol/L (3.5-5.1) 3.7 mmol/L (3.5-5.1) Chloride Level 115 mmol/L (98-107) 118 mmol/L (98-107) Carbon Dioxide Level 18 mmol/L (21-32) 13 mmol/L (21-32) Anion Gap 11 (6-14) 11 (6-14) Blood Urea Nitrogen 20 mg/dL (7-20) 15 mg/dL (7-20) Creatinine 0.7 mg/dL (0.6-1.0) 0.7 mg/dL (0.6-1.0) Estimated GFR (Cockcroft-Gault) 79.2 79.2 BUN/Creatinine Ratio 29 (6-20) Glucose Level 128 mg/dL (70-99) 103 mg/dL (70-99) Calcium Level 7.2 mg/dL (8.5-10.1) 7.3 mg/dL (8.5-10.1) Total Bilirubin 0.2 mg/dL (0.2-1.0) Aspartate Amino Transf (AST/SGOT) 18 U/L (15-37) Alanine Aminotransferase (ALT/SGPT) 12 U/L (14-59) Alkaline Phosphatase 50 U/L (46-116) Total Protein 4.6 g/dL (6.4-8.2) Albumin 1.7 g/dL (3.4-5.0) Albumin/Globulin Ratio 0.6 (1.0-1.7) Glucose (Fingerstick) 135 mg/dL (70-99) 107 mg/dL (70-99) Test 12/06/16 06:59 Glucose (Fingerstick) 100 mg/dL (70-99) Laboratory Tests Test 12/05/16 18:15 12/06/16 00:00 12/06/16 04:50 12/06/16 06:59 Glucose (Fingerstick) 135 mg/dL (70-99) 107 mg/dL (70-99) 100 mg/dL (70-99) Sodium Level 142 mmol/L (136-145) Potassium Level 3.7 mmol/L (3.5-5.1) Chloride Level 118 mmol/L (98-107) Carbon Dioxide Level 13 mmol/L (21-32) Anion Gap 11 (6-14) Blood Urea Nitrogen 15 mg/dL (7-20) Creatinine 0.7 mg/dL (0.6-1.0) Estimated GFR (Cockcroft-Gault) 79.2 Glucose Level 103 mg/dL (70-99) Calcium Level 7.3 mg/dL (8.5-10.1) Microbiology 12/03/16 Urine Culture - Final, Complete 12/03/16 Urine Culture Result 1 (SIOMARA) - Final, Complete 12/03/16 Urine Culture Result 2 (SIOMARA) - Final, Complete Medications Current Medications Sodium Chloride 500 ml @ 500 mls/hr 1X ONCE IV Last administered on 12/03/16 13:06; Start 12/03/16 at 12:45; Stop 12/03/16 at 13:44; Status DC Sodium Chloride 500 ml @ 500 mls/hr 1X ONCE IV Last administered on 12/03/16 14:19; Start 12/03/16 at 13:15; Stop 12/03/16 at 14:14; Status DC Sodium Chloride 1,000 ml @ 150 mls/hr Q6H40M IV ; Start 12/03/16 at 14:37; Stop 12/03/16 at 16:33; Status DC Docusate Sodium (Colace) 100 mg DAILY PO ; Start 12/04/16 at 09:00 Simvastatin (Zocor) 20 mg HS PO Last administered on 12/04/16 20:44; Start 12/03/16 at 21:00 Ergocalciferol (Vitamin D2) 50,000 unit WEEKLY PO ; Start 12/10/16 at 09:00 Mirtazapine (Remeron) 15 mg HS PO Last administered on 12/04/16 20:44; Start 12/03/16 at 21:00 Ondansetron HCl (Zofran) 4 mg PRN Q6HRS PRN IV NAUSEA/VOMITING; Start 12/03/16 at 16:30 Famotidine (Pepcid) 20 mg DAILY IVP Last administered on 12/05/16 09:01; Start 12/03/16 at 17:00 Potassium Chloride/Sodium Chloride 1,000 ml @ 50 mls/hr Q20H IV Last administered on 12/06/16 04:37; Start 12/03/16 at 17:00 Acetaminophen (Tylenol) 500 mg PRN Q4HRS PRN PO MILD PAIN / TEMP Last administered on 12/04/16 22:16; Start 12/04/16 at 15:30 Ceftriaxone Sodium 1 gm/ Sodium Chloride 50 ml @ 100 mls/hr Q24H IV Last administered on 12/05/16 09:34; Start 12/05/16 at 09:00 Acetaminophen (Tylenol) 325 mg PRN Q6HRS PRN IA MILD PAIN / TEMP Last administered on 12/05/16 13:44; Start 12/05/16 at 13:45 Bisacodyl (Dulcolax Supp) 10 mg 1X ONCE IA Last administered on 12/05/16 13: 56; Start 12/05/16 at 13:45; Stop 12/05/16 at 13:51; Status DC Active Scripts Active Coreg (Carvedilol) 12.5 Mg Tablet 1 Tab PO BID Klor-Con M20 (Potassium Chloride) 20 Meq Tablet.er 20 Meq PO DAILYWBKFT Reported Mirtazapine 15 Mg Tab.rapdis 15 Mg PO HS Vitamin D2 (Ergocalciferol (Vitamin D2)) 50,000 Unit Capsule 1 Cap PO WEEKLY Simvastatin 20 Mg Tablet 20 PO HS Docusate Sodium 100 Mg Capsule 100 Mg PO DAILY Norvasc (Amlodipine Besylate) 10 Mg Tablet 10 Mg PO DAILY LAST DOSE: 08/20/15 AM NEXT DOSE: 08/21/15 AM Miralax (Polyethylene Glycol 3350) 119 Gm Powder 17 Gm PO DAILY Acetaminophen 8 Hour (Acetaminophen) 650 Mg Tablet.er 650 Mg PO PRN Q4HRS PRN Vitals/I & O Vital Sign - Last 24 Hours 12/05/16 12/05/16 12/05/16 12/05/16 10:55 14:51 18:35 20:00 Temp 99.8 99.6 99.0 99.8 99.6 99.0 Pulse 99 96 88 Resp 18 18 16 B/P (MAP) 123/49 (73) 110/57 (74) 87/43 (58) Pulse Ox 95 92 92 O2 Delivery Room Air Room Air Room Air Room Air 12/05/16 12/05/16 12/06/16 12/06/16 20:19 22:40 03:00 07:00 Temp 97.7 97.4 98.5 97.7 97.4 98.5 Pulse 84 81 90 91 Resp 16 16 17 B/P (MAP) 128/50 (76) 97/48 (64) 136/63 (87) 115/59 (77) Pulse Ox 91 94 94 93 O2 Delivery Room Air Room Air Room Air Room Air Intake and Output 12/05/16 12/05/16 12/06/16 14:59 22:59 06:59 Intake Total 240 ml 975 ml Balance 240 ml 975 ml Nutrition Consultation Dietary Evaluation: Recommendations by RD: Increase Calorie Intake, Protein supplementation Comments: Add Boost Breeze TID (250 calories/9 grams protein per serving) Encourage good PO intake Expected Outcomes/Goals: diet tolerance diet advancement Malnutrition Findings: Body Fat Depletion (Non Severe: Mild Depletion 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
[2016-12-06] MEDS: FAMOTIDINE 20 MG/2 ML VIAL IVP SCH (10:27)
[2016-12-06] MEDS: DOCUSATE SODIUM 100 MG CAPSULE. PO SCH (10:35)
[2016-12-06 11:00] VITALS: BP 139/58
--- NOTE | 2016-12-06 12:55 | RAD ---
Abdominal radiograph 12/06/2016 at 1011 hours Indication: Abdominal distention Comparison: 12/04/2016 Technique: Single supine portable view of the abdomen is provided. Findings: Similar colonic distention extending from the ascending colon to the rectum. Caliber of bowel loops has not significantly changed. A few dilated small bowel loops are present as well. Median sternotomy changes are partially visualized. Moderate degenerative changes of the lower lumbar spine and sacroiliac joints. Vascular catheter stations are present suggestive of atherosclerotic calcification of the abdominal aorta. Supine technique limits evaluation for free intraperitoneal air. Impression: Diffuse colonic distention, not significantly changed since 12/04/2016. Findings may represent ileus versus early bowel obstruction/ pseudo-obstruction. Short-term follow-up versus CT abdomen/pelvis is recommended.
--- NOTE | 2016-12-06 12:59 | RAD ---
Renal ultrasound, 12/06/2016: History: UTI The right kidney measures 10.8 cm in length while the left kidney measures 11.3 cm. There is no evidence of hydronephrosis. A 2.0 cm simple cyst is identified in the lower pole of the right kidney. No other renal mass is seen. The renal parenchymal echogenicity is within normal limits. No abnormal perinephric process is seen. Limited views of urinary bladder demonstrate a post voiding residual of approximately 85 cc. IMPRESSION: 1. Small right renal cyst. 2. The kidneys are otherwise unremarkable.
[2016-12-06] MEDS ORDERED: BISACODYL 10 MG SUPP.RECT. PR PRN (14:15)
[2016-12-06 15:00] VITALS: BP 117/49
--- NOTE | 2016-12-06 16:05 | PDOC ---
PROGRESS NOTES Subjective Subjective Pt. with uti Objective Objective Vital Signs Date Time Temp Pulse Resp B/P (MAP) Pulse Ox O2 Delivery O2 Flow Rate FiO2 12/06/16 11:00 100.0 89 17 139/58 (85) 93 Room Air 100.0 Intake and Output 12/06/16 07:00 Intake Total 1215 ml Balance 1215 ml Intake Oral 240 ml IV Total 975 ml # Voids 7 Physical Exam Physical Exam PVR-85 cc Plan Plan of Care treat UTI based on C and S f/u [facility] urology in 2-3 weeks Problems Medical Problems: (1) Hypernatremia Status: Acute (2) Prerenal azotemia Status: Acute (3) Severe dehydration Status: Acute Comment Review of Relevant I have reviewed the following items mariaelena (where applicable) has been applied. Labs Laboratory Tests Test 12/05/16 04:50 12/05/16 18:15 12/06/16 00:00 12/06/16 04:50 White Blood Count 5.5 x10^3/uL (4.0-11.0) Red Blood Count 3.48 x10^6/uL (3.50-5.40) Hemoglobin 10.0 g/dL (12.0-15.5) Hematocrit 29.4 % (36.0-47.0) Mean Corpuscular Volume 85 fL (79-100) Mean Corpuscular Hemoglobin 29 pg (25-35) Mean Corpuscular Hemoglobin Concent 34 g/dL (31-37) Red Cell Distribution Width 13.9 % (11.5-14.5) Platelet Count 170 x10^3/uL (140-400) Neutrophils (%) (Auto) 77 % (31-73) Lymphocytes (%) (Auto) 13 % (24-48) Monocytes (%) (Auto) 9 % (0-9) Eosinophils (%) (Auto) 1 % (0-3) Basophils (%) (Auto) 0 % (0-3) Neutrophils # (Auto) 4.2 x10^3uL (1.8-7.7) Lymphocytes # (Auto) 0.7 x10^3/uL (1.0-4.8) Monocytes # (Auto) 0.5 x10^3/uL (0.0-1.1) Eosinophils # (Auto) 0.1 x10^3/uL (0.0-0.7) Basophils # (Auto) 0.0 x10^3/uL (0.0-0.2) Sodium Level 144 mmol/L (136-145) 142 mmol/L (136-145) Potassium Level 3.6 mmol/L (3.5-5.1) 3.7 mmol/L (3.5-5.1) Chloride Level 115 mmol/L (98-107) 118 mmol/L (98-107) Carbon Dioxide Level 18 mmol/L (21-32) 13 mmol/L (21-32) Anion Gap 11 (6-14) 11 (6-14) Blood Urea Nitrogen 20 mg/dL (7-20) 15 mg/dL (7-20) Creatinine 0.7 mg/dL (0.6-1.0) 0.7 mg/dL (0.6-1.0) Estimated GFR (Cockcroft-Gault) 79.2 79.2 BUN/Creatinine Ratio 29 (6-20) Glucose Level 128 mg/dL (70-99) 103 mg/dL (70-99) Calcium Level 7.2 mg/dL (8.5-10.1) 7.3 mg/dL (8.5-10.1) Total Bilirubin 0.2 mg/dL (0.2-1.0) Aspartate Amino Transf (AST/SGOT) 18 U/L (15-37) Alanine Aminotransferase (ALT/SGPT) 12 U/L (14-59) Alkaline Phosphatase 50 U/L (46-116) Total Protein 4.6 g/dL (6.4-8.2) Albumin 1.7 g/dL (3.4-5.0) Albumin/Globulin Ratio 0.6 (1.0-1.7) Glucose (Fingerstick) 135 mg/dL (70-99) 107 mg/dL (70-99) Test 12/06/16 06:59 12/06/16 11:51 Glucose (Fingerstick) 100 mg/dL (70-99) 88 mg/dL (70-99) Laboratory Tests Test 12/05/16 18:15 12/06/16 00:00 12/06/16 04:50 12/06/16 06:59 Glucose (Fingerstick) 135 mg/dL (70-99) 107 mg/dL (70-99) 100 mg/dL (70-99) Sodium Level 142 mmol/L (136-145) Potassium Level 3.7 mmol/L (3.5-5.1) Chloride Level 118 mmol/L (98-107) Carbon Dioxide Level 13 mmol/L (21-32) Anion Gap 11 (6-14) Blood Urea Nitrogen 15 mg/dL (7-20) Creatinine 0.7 mg/dL (0.6-1.0) Estimated GFR (Cockcroft-Gault) 79.2 Glucose Level 103 mg/dL (70-99) Calcium Level 7.3 mg/dL (8.5-10.1) Test 12/06/16 11:51 Glucose (Fingerstick) 88 mg/dL (70-99) Microbiology 12/03/16 Urine Culture - Final, Complete 12/03/16 Urine Culture Result 1 (SIOMARA) - Final, Complete 12/03/16 Urine Culture Result 2 (SIOMARA) - Final, Complete Medications Current Medications Sodium Chloride 500 ml @ 500 mls/hr 1X ONCE IV Last administered on 12/03/16 13:06; Start 12/03/16 at 12:45; Stop 12/03/16 at 13:44; Status DC Sodium Chloride 500 ml @ 500 mls/hr 1X ONCE IV Last administered on 12/03/16 14:19; Start 12/03/16 at 13:15; Stop 12/03/16 at 14:14; Status DC Sodium Chloride 1,000 ml @ 150 mls/hr Q6H40M IV ; Start 12/03/16 at 14:37; Stop 12/03/16 at 16:33; Status DC Docusate Sodium (Colace) 100 mg DAILY PO ; Start 12/04/16 at 09:00 Simvastatin (Zocor) 20 mg HS PO Last administered on 12/04/16 20:44; Start 12/03/16 at 21:00 Ergocalciferol (Vitamin D2) 50,000 unit WEEKLY PO ; Start 12/10/16 at 09:00 Mirtazapine (Remeron) 15 mg HS PO Last administered on 12/04/16 20:44; Start 12/03/16 at 21:00 Ondansetron HCl (Zofran) 4 mg PRN Q6HRS PRN IV NAUSEA/VOMITING; Start 12/03/16 at 16:30 Famotidine (Pepcid) 20 mg DAILY IVP Last administered on 12/06/16 10:27; Start 12/03/16 at 17:00 Potassium Chloride/Sodium Chloride 1,000 ml @ 50 mls/hr Q20H IV Last administered on 12/06/16 04:37; Start 12/03/16 at 17:00 Acetaminophen (Tylenol) 500 mg PRN Q4HRS PRN PO MILD PAIN / TEMP Last administered on 12/04/16 22:16; Start 12/04/16 at 15:30 Ceftriaxone Sodium 1 gm/ Sodium Chloride 50 ml @ 100 mls/hr Q24H IV Last administered on 12/06/16 10:28; Start 12/05/16 at 09:00 Acetaminophen (Tylenol) 325 mg PRN Q6HRS PRN RI MILD PAIN / TEMP Last administered on 12/05/16 13:44; Start 12/05/16 at 13:45 Bisacodyl (Dulcolax Supp) 10 mg 1X ONCE RI Last administered on 12/05/16 13: 56; Start 12/05/16 at 13:45; Stop 12/05/16 at 13:51; Status DC Bisacodyl (Dulcolax Supp) 10 mg PRN DAILY PRN RI CONSTIPATION; Start 12/06/16 at 14:15 Active Scripts Active Coreg (Carvedilol) 12.5 Mg Tablet 1 Tab PO BID Klor-Con M20 (Potassium Chloride) 20 Meq Tablet.er 20 Meq PO DAILYWBKFT Reported Mirtazapine 15 Mg Tab.rapdis 15 Mg PO HS Vitamin D2 (Ergocalciferol (Vitamin D2)) 50,000 Unit Capsule 1 Cap PO WEEKLY Simvastatin 20 Mg Tablet 20 PO HS Docusate Sodium 100 Mg Capsule 100 Mg PO DAILY Norvasc (Amlodipine Besylate) 10 Mg Tablet 10 Mg PO DAILY LAST DOSE: 08/20/15 AM NEXT DOSE: 08/21/15 AM Miralax (Polyethylene Glycol 3350) 119 Gm Powder 17 Gm PO DAILY Acetaminophen 8 Hour (Acetaminophen) 650 Mg Tablet.er 650 Mg PO PRN Q4HRS PRN Vitals/I & O Vital Sign - Last 24 Hours 12/05/16 12/05/16 12/05/16 12/05/16 18:35 20:00 20:19 22:40 Temp 99.0 97.7 99.0 97.7 Pulse 88 84 81 Resp 16 B/P (MAP) 87/43 (58) 128/50 (76) 97/48 (64) Pulse Ox 92 91 94 O2 Delivery Room Air Room Air Room Air Room Air 12/06/16 12/06/16 12/06/16 03:00 07:00 11:00 Temp 97.4 98.5 100.0 97.4 98.5 100.0 Pulse 90 91 89 Resp B/P (MAP) 136/63 (87) 115/59 (77) 139/58 (85) Pulse Ox 94 93 93 O2 Delivery Room Air Room Air Room Air Intake and Output 12/05/16 12/05/16 12/06/16 15:00 23:00 07:00 Intake Total 240 ml 975 ml Balance 240 ml 975 ml Nutrition Consultation Dietary Evaluation: Recommendations by RD: Increase Calorie Intake, Protein supplementation Comments: diet advancement, offer supplements prn Expected Outcomes/Goals: to meet > 75% est nutr needs Malnutrition Findings: Body Fat Depletion (Non Severe: Mild Depletion 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
[2016-12-06 19:00] VITALS: BP 139/61
[2016-12-06] MEDS: SIMVASTATIN 20 MG TABLET PO SCH (20:51)
[2016-12-06] MEDS: MIRTAZAPINE 15 MG TABLET PO SCH (20:51)
[2016-12-06 23:00] VITALS: BP 123/60
[2016-12-07 03:11] VITALS: BP 136/71
[2016-12-07] MEDS: ACETAMINOPHEN 325 MG SUPP.RECT. PR PRN ×2 (03:29→19:29)
[2016-12-07 06:11] LABS: BASO % 1 % (0-3); EOS % 1 % (0-3); HEMATOCRIT 29.6 % (36.0-47.0); HEMOGLOBIN 9.9 g/dL (12.0-15.5); LYMPH % 22 % (24-48); MEAN CORPUSCULAR HEMOGLOBIN 29 pg (25-35); MEAN CORPUSCULAR HGB CONC 33 g/dL (31-37); MEAN CORPUSCULAR VOLUME 86 fL (79-100); MONO % 12 % (0-9); NEUT % 65 % (31-73); PLATELET COUNT 172 x10^3/uL (140-400); RED BLOOD COUNT 3.46 x10^6/uL (3.50-5.40); RED CELL DISTRIBUTION WIDTH 14.2 % (11.5-14.5); WHITE BLOOD COUNT 4.7 x10^3/uL (4.0-11.0)
[2016-12-07 06:37] LABS: ALBUMIN 1.6 g/dL (3.4-5.0); ALBUMIN/GLOBULIN RATIO 0.6 (1.0-1.7); CREATININE 0.7 mg/dL (0.6-1.0); GFR 79.2; POTASSIUM 3.5 mmol/L (3.5-5.1); TOTAL BILIRUBIN 0.2 mg/dL (0.2-1.0); TOTAL PROTEIN 4.2 g/dL (6.4-8.2)
[2016-12-07 07:00] VITALS: BP 142/70
--- NOTE | 2016-12-07 08:26 | PDOC ---
GENERAL General: vss with temp to 101. abdomen more distended today and tender. will ask ID opinion for ongoing fevers. chest clear and heart regular. labs stable and mostly unremarkable. continue same otherwise. Problems: VITAL SIGNS Vital Signs: Vital Signs Date Time Temp Pulse Resp B/P (MAP) Pulse Ox O2 Delivery O2 Flow Rate FiO2 12/07/16 07:00 98.8 86 18 142/70 (94) 94 Room Air 98.8 I & O I & O Intake and Output 12/07/16 06:59 Intake Total 1285 ml Output Total 2 ml Balance 1283 ml Intake Oral 260 ml IV Total 1025 ml Stool Total 2 ml # Voids 6 ALLERGIES Allergies: Allergies Coded Allergies Type Severity Reaction Last Updated Verified No Known Drug Allergies 12/16/13 No MEDS Medications: Current Medications Medications (Trade) Dose Ordered Sig/Peggy Start Time Stop Time Status Last Admin Dose Admin Acetaminophen (Tylenol) 325 mg PRN Q6HRS PRN 12/05/16 13:45 12/07/16 03:29 325 MG Bisacodyl (Dulcolax Supp) 10 mg PRN DAILY PRN 12/06/16 14:15 Ceftriaxone Sodium 1 gm/ Sodium Chloride 50 ml @ 100 mls/hr Q24H 12/05/16 09:00 12/06/16 10:28 100 MLS/HR Docusate Sodium (Colace) 100 mg DAILY 12/04/16 09:00 Ergocalciferol (Vitamin D2) 50,000 unit WEEKLY 12/10/16 09:00 Famotidine (Pepcid) 20 mg DAILY 12/03/16 17:00 12/06/16 10:27 20 MG Mirtazapine (Remeron) 15 mg HS 12/03/16 21:00 12/06/16 20:51 15 MG Ondansetron HCl (Zofran) 4 mg PRN Q6HRS PRN 12/03/16 16:30 Potassium Chloride/Sodium Chloride 1,000 ml @ 50 mls/hr Q20H 12/03/16 17:00 12/07/16 03:26 50 MLS/HR Simvastatin (Zocor) 20 mg HS 12/03/16 21:00 12/06/16 20:51 20 MG Sodium Chloride 1,000 ml @ 150 mls/hr Q6H40M 12/03/16 14:37 12/03/16 16:33 DC LAB Lab: Laboratory Tests Test 12/06/16 11:51 12/06/16 17:58 12/07/16 05:40 12/07/16 06:51 Glucose (Fingerstick) 88 mg/dL (70-99) 158 mg/dL (70-99) 105 mg/dL (70-99) White Blood Count 4.7 x10^3/uL (4.0-11.0) Red Blood Count 3.46 x10^6/uL (3.50-5.40) Hemoglobin 9.9 g/dL (12.0-15.5) Hematocrit 29.6 % (36.0-47.0) Mean Corpuscular Volume 86 fL (79-100) Mean Corpuscular Hemoglobin 29 pg (25-35) Mean Corpuscular Hemoglobin Concent 33 g/dL (31-37) Red Cell Distribution Width 14.2 % (11.5-14.5) Platelet Count 172 x10^3/uL (140-400) Neutrophils (%) (Auto) 65 % (31-73) Lymphocytes (%) (Auto) 22 % (24-48) Monocytes (%) (Auto) 12 % (0-9) Eosinophils (%) (Auto) 1 % (0-3) Basophils (%) (Auto) 1 % (0-3) Neutrophils # (Auto) 3.0 x10^3uL (1.8-7.7) Lymphocytes # (Auto) 1.0 x10^3/uL (1.0-4.8) Monocytes # (Auto) 0.5 x10^3/uL (0.0-1.1) Eosinophils # (Auto) 0.0 x10^3/uL (0.0-0.7) Basophils # (Auto) 0.0 x10^3/uL (0.0-0.2) Sodium Level 149 mmol/L (136-145) Potassium Level 3.5 mmol/L (3.5-5.1) Chloride Level 118 mmol/L (98-107) Carbon Dioxide Level 18 mmol/L (21-32) Anion Gap 13 (6-14) Blood Urea Nitrogen 12 mg/dL (7-20) Creatinine 0.7 mg/dL (0.6-1.0) Estimated GFR (Cockcroft-Gault) 79.2 BUN/Creatinine Ratio 17 (6-20) Glucose Level 117 mg/dL (70-99) Calcium Level 7.0 mg/dL (8.5-10.1) Total Bilirubin 0.2 mg/dL (0.2-1.0) Aspartate Amino Transf (AST/SGOT) 22 U/L (15-37) Alanine Aminotransferase (ALT/SGPT) 15 U/L (14-59) Alkaline Phosphatase 54 U/L (46-116) Total Protein 4.2 g/dL (6.4-8.2) Albumin 1.6 g/dL (3.4-5.0) Albumin/Globulin Ratio 0.6 (1.0-1.7) Nutrition Consultation Dietary Evaluation: Recommendations by RD: Increase Calorie Intake, Protein supplementation Comments: diet advancement, offer supplements prn Expected Outcomes/Goals: to meet > 75% est nutr needs Malnutrition Findings: Body Fat Depletion (Non Severe: Mild Depletion 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
--- NOTE | 2016-12-07 08:40 | PDOC ---
Subjective: Subjective: Not much history from pt. Objective: Objective: Per RN - two watery/leaky stools yesterday, tolerating clears, +fever, no c/o pain. Vital Signs: Vital Signs Date Time Temp Pulse Resp B/P (MAP) Pulse Ox O2 Delivery O2 Flow Rate FiO2 12/07/16 07:00 98.8 86 18 142/70 (94) 94 Room Air 98.8 Labs: Laboratory Tests Test 12/06/16 11:51 12/06/16 17:58 12/07/16 05:40 12/07/16 06:51 Glucose (Fingerstick) 88 mg/dL 158 mg/dL 105 mg/dL White Blood Count 4.7 x10^3/uL Red Blood Count 3.46 x10^6/uL Hemoglobin 9.9 g/dL Hematocrit 29.6 % Mean Corpuscular Volume 86 fL Mean Corpuscular Hemoglobin 29 pg Mean Corpuscular Hemoglobin Concent 33 g/dL Red Cell Distribution Width 14.2 % Platelet Count 172 x10^3/uL Neutrophils (%) (Auto) 65 % Lymphocytes (%) (Auto) 22 % Monocytes (%) (Auto) 12 % Eosinophils (%) (Auto) 1 % Basophils (%) (Auto) 1 % Neutrophils # (Auto) 3.0 x10^3uL Lymphocytes # (Auto) 1.0 x10^3/uL Monocytes # (Auto) 0.5 x10^3/uL Eosinophils # (Auto) 0.0 x10^3/uL Basophils # (Auto) 0.0 x10^3/uL Sodium Level 149 mmol/L Potassium Level 3.5 mmol/L Chloride Level 118 mmol/L Carbon Dioxide Level 18 mmol/L Anion Gap 13 Blood Urea Nitrogen 12 mg/dL Creatinine 0.7 mg/dL Estimated GFR (Cockcroft-Gault) 79.2 BUN/Creatinine Ratio 17 Glucose Level 117 mg/dL Calcium Level 7.0 mg/dL Total Bilirubin 0.2 mg/dL Aspartate Amino Transf (AST/SGOT) 22 U/L Alanine Aminotransferase (ALT/SGPT) 15 U/L Alkaline Phosphatase 54 U/L Total Protein 4.2 g/dL Albumin 1.6 g/dL Albumin/Globulin Ratio 0.6 Imaging: [facility] 12/06/16 Impression: Diffuse colonic distention, not significantly changed since 12/04/2016. Findings may represent ileus versus early bowel obstruction/pseudo-obstruction. Short- term follow-up versus CT abdomen/pelvis is recommended. PE: GEN: was asleep LUNGS: CTAB HEART: distant ABD: more distended today, seems tender LLQ (does not agree to this but moans when touched here) NEURO/PSYCH: mostly mumbles/groans A/P: Abdominal distention/discomfort -KUB as above -passed large loose stool 12/05, two watery stools 12/06 -has Dulcolax supp PRN ordered Fever, UTI -- Seems more uncomfortable today, will review w/ Dr. Dudley. DONNA RIVAS Dec 07, 2016 08:40
[2016-12-07] MEDS: DOCUSATE SODIUM 100 MG CAPSULE. PO SCH (08:48)
[2016-12-07] MEDS: FAMOTIDINE 20 MG/2 ML VIAL IVP SCH (08:50)
--- NOTE | 2016-12-07 08:55 | PDOC2 ---
IM Consult Reason for consult Fever Referring physician Dr. May Date of Admission DATE: 12/07/16 TIME: 08:43 Chief Complaint Chief Complaint CC: Fever HPI: This 86 year old female has been admitted with a chief complaint of vomiting and diarrhea for 5 or 6 days in senior care with decreased level of responsiveness. Has a h/o distal rectal thickening on CT pelvis 03/18/16. HAs abd distension with evidence of ileus on Abd. film. Had some vomting last pm Problems: Past Medical History Cardiovascular: CAD, CHF, HTN, Hyperlipidemia, Pulmonary hypertension Pulmonary: COPD CENTRAL NERVOUS SYSTEM: Dementia GI: GERD, Peptic Ulcer disease Heme/Onc: Anemia NOS Musculoskeletal: Osteoarthritis Endocrine: Diabetes Past Surgical History Past Surgical History: Pacemaker, CABG, Cataract Removal, Hysterectomy, Other Past Family History Family History: Coronary Artery Disease, Diabetes, Hypertension Review of Symptoms Review of Symptoms She Denies all ROS General ROS: positive for - Psychological ROS: negative Ophthalmic ROS: negative ENT ROS: negative Allergy and Immunology ROS: negative Hematology and Lymphatic: negative Endocrine ROS: negative Respiratory ROS: no cold, cough, dyspnea. Cardiovascular ROS: no chest pain or dyspnea on exertion Gastrointestinal ROS: no abdominal pain, change in bowel habits, or black or bloody stools Genito-Urinary ROS: no dysuria, trouble voiding, or hematuria Musculoskeletal ROS: no pain Neurological ROS: negative Dermatological ROS: no rash Medications Current Medications Bisacodyl (Dulcolax Supp) 10 mg PRN DAILY PRN OK CONSTIPATION; Start 12/06/16 at 14:15 Ergocalciferol (Vitamin D2) 50,000 unit WEEKLY PO ; Start 12/10/16 at 09:00 Allergy Allergies Coded Allergies Type Severity Reaction Last Updated Verified No Known Drug Allergies 12/16/13 No Physical Exam Physical Exam General appearance - alert, elderly, thin, and in no distress but mild SOA Mental Status - alert, oriented to person,affect appropriate to mood Head - normal. PERRLA, OC/OP min dry some orange tinge Chest - clear to auscultation, no wheezes, rales or rhonchi, symmetric air entry Heart - S1 and S2 normal Abdomen -grossly distended soft, mild tender LLQ with mild rebound, Decreased BS Neurological - alert and oriented Musculoskeletal - no muscular tenderness Extremities - no pedal edema Skin - warm and dry Labs Laboratory Tests Test 12/05/16 18:15 12/06/16 00:00 12/06/16 04:50 12/06/16 06:59 Glucose (Fingerstick) 135 mg/dL (70-99) 107 mg/dL (70-99) 100 mg/dL (70-99) Sodium Level 142 mmol/L (136-145) Potassium Level 3.7 mmol/L (3.5-5.1) Chloride Level 118 mmol/L (98-107) Carbon Dioxide Level 13 mmol/L (21-32) Anion Gap 11 (6-14) Blood Urea Nitrogen 15 mg/dL (7-20) Creatinine 0.7 mg/dL (0.6-1.0) Estimated GFR (Cockcroft-Gault) 79.2 Glucose Level 103 mg/dL (70-99) Calcium Level 7.3 mg/dL (8.5-10.1) Test 12/06/16 11:51 12/06/16 17:58 12/07/16 05:40 12/07/16 06:51 Glucose (Fingerstick) 88 mg/dL (70-99) 158 mg/dL (70-99) 105 mg/dL (70-99) White Blood Count 4.7 x10^3/uL (4.0-11.0) Red Blood Count 3.46 x10^6/uL (3.50-5.40) Hemoglobin 9.9 g/dL (12.0-15.5) Hematocrit 29.6 % (36.0-47.0) Mean Corpuscular Volume 86 fL (79-100) Mean Corpuscular Hemoglobin 29 pg (25-35) Mean Corpuscular Hemoglobin Concent 33 g/dL (31-37) Red Cell Distribution Width 14.2 % (11.5-14.5) Platelet Count 172 x10^3/uL (140-400) Neutrophils (%) (Auto) 65 % (31-73) Lymphocytes (%) (Auto) 22 % (24-48) Monocytes (%) (Auto) 12 % (0-9) Eosinophils (%) (Auto) 1 % (0-3) Basophils (%) (Auto) 1 % (0-3) Neutrophils # (Auto) 3.0 x10^3uL (1.8-7.7) Lymphocytes # (Auto) 1.0 x10^3/uL (1.0-4.8) Monocytes # (Auto) 0.5 x10^3/uL (0.0-1.1) Eosinophils # (Auto) 0.0 x10^3/uL (0.0-0.7) Basophils # (Auto) 0.0 x10^3/uL (0.0-0.2) Sodium Level 149 mmol/L (136-145) Potassium Level 3.5 mmol/L (3.5-5.1) Chloride Level 118 mmol/L (98-107) Carbon Dioxide Level 18 mmol/L (21-32) Anion Gap 13 (6-14) Blood Urea Nitrogen 12 mg/dL (7-20) Creatinine 0.7 mg/dL (0.6-1.0) Estimated GFR (Cockcroft-Gault) 79.2 BUN/Creatinine Ratio 17 (6-20) Glucose Level 117 mg/dL (70-99) Calcium Level 7.0 mg/dL (8.5-10.1) Total Bilirubin 0.2 mg/dL (0.2-1.0) Aspartate Amino Transf (AST/SGOT) 22 U/L (15-37) Alanine Aminotransferase (ALT/SGPT) 15 U/L (14-59) Alkaline Phosphatase 54 U/L (46-116) Total Protein 4.2 g/dL (6.4-8.2) Albumin 1.6 g/dL (3.4-5.0) Albumin/Globulin Ratio 0.6 (1.0-1.7) Laboratory Tests Test 12/06/16 11:51 12/06/16 17:58 12/07/16 05:40 12/07/16 06:51 Glucose (Fingerstick) 88 mg/dL (70-99) 158 mg/dL (70-99) 105 mg/dL (70-99) White Blood Count 4.7 x10^3/uL (4.0-11.0) Red Blood Count 3.46 x10^6/uL (3.50-5.40) Hemoglobin 9.9 g/dL (12.0-15.5) Hematocrit 29.6 % (36.0-47.0) Mean Corpuscular Volume 86 fL (79-100) Mean Corpuscular Hemoglobin 29 pg (25-35) Mean Corpuscular Hemoglobin Concent 33 g/dL (31-37) Red Cell Distribution Width 14.2 % (11.5-14.5) Platelet Count 172 x10^3/uL (140-400) Neutrophils (%) (Auto) 65 % (31-73) Lymphocytes (%) (Auto) 22 % (24-48) Monocytes (%) (Auto) 12 % (0-9) Eosinophils (%) (Auto) 1 % (0-3) Basophils (%) (Auto) 1 % (0-3) Neutrophils # (Auto) 3.0 x10^3uL (1.8-7.7) Lymphocytes # (Auto) 1.0 x10^3/uL (1.0-4.8) Monocytes # (Auto) 0.5 x10^3/uL (0.0-1.1) Eosinophils # (Auto) 0.0 x10^3/uL (0.0-0.7) Basophils # (Auto) 0.0 x10^3/uL (0.0-0.2) Sodium Level 149 mmol/L (136-145) Potassium Level 3.5 mmol/L (3.5-5.1) Chloride Level 118 mmol/L (98-107) Carbon Dioxide Level 18 mmol/L (21-32) Anion Gap 13 (6-14) Blood Urea Nitrogen 12 mg/dL (7-20) Creatinine 0.7 mg/dL (0.6-1.0) Estimated GFR (Cockcroft-Gault) 79.2 BUN/Creatinine Ratio 17 (6-20) Glucose Level 117 mg/dL (70-99) Calcium Level 7.0 mg/dL (8.5-10.1) Total Bilirubin 0.2 mg/dL (0.2-1.0) Aspartate Amino Transf (AST/SGOT) 22 U/L (15-37) Alanine Aminotransferase (ALT/SGPT) 15 U/L (14-59) Alkaline Phosphatase 54 U/L (46-116) Total Protein 4.2 g/dL (6.4-8.2) Albumin 1.6 g/dL (3.4-5.0) Albumin/Globulin Ratio 0.6 (1.0-1.7) Vitals Vital Signs Date Time Temp Pulse Resp B/P (MAP) Pulse Ox O2 Delivery O2 Flow Rate FiO2 12/07/16 07:00 98.8 86 18 142/70 (94) 94 Room Air 98.8 Assessment Assessment Fever Abd pain Abd distension UTI - POA Aerococcus in urine Plan Plan Change to Rocephin Add Zosyn Need CT scan abd/pelvis r/o colitis/obstruction/tumor F/u labs SABINA HAMPTON MD Dec 07, 2016 08:55
[2016-12-07] MEDS ORDERED: PIPERACILLIN/TAZOBACTAM 2.25 GM in IV NORMAL SALINE 50ML 50 ML IV SCH (10:00)
[2016-12-07 11:00] VITALS: BP 142/73
[2016-12-07] MEDS ORDERED: BISACODYL 10 MG SUPP.RECT. PR ONE (14:00)
--- NOTE | 2016-12-07 14:06 | RAD ---
CT of the abdomen and pelvis without contrast, 12/07/2016: History: Abdominal distention, vomiting Noncontrast scans were obtained as requested. Comparison is made to a study from 03/18/2016. There are small bilateral pleural effusions. There is mild underlying bibasilar atelectasis. There are extensive aortic and coronary artery calcifications. The gallbladder is distended. There are several dense gallstones in the gallbladder neck. The unopacified liver is unremarkable. There are calcifications in the region of the pancreatic head, some of which may be vascular. There is no evidence of a pancreatic mass. There are calcified splenic granulomata. The spleen is of normal size. There is a small cyst in the lower pole of the right kidney. The unopacified kidneys are otherwise unremarkable. There is no evidence of renal obstruction. No adrenal abnormality is detected. There is considerable calcific plaquing of the abdominal aorta and its branches without evidence of aneurysm. No abdominal or pelvic adenopathy is seen. The colon is distended with gas and a moderate amount of stool. There is stool and fluid distending the rectum. The small bowel loops are not dilated. A small structure which is probably appendix is visualized and is unremarkable. There is a small amount of free fluid in the abdomen. No free air is present in the abdomen. There is streaky subcutaneous edema as well as mild streaky edema in the mesentery, compatible with anasarca. Moderate multilevel degenerative changes are present in the spine. There is a moderate vertebral compression deformity at T12. This is an old fracture, also evident on the lateral chest radiograph from 10/03/2014. IMPRESSION: 1. Small bilateral pleural effusions with mild bibasilar atelectasis. 2. Anasarca. 3. Small volume of ascites. 4. Cholelithiasis. 5. Generalized distention of the colon with gas, stool and fluid suggesting an atonic colon. Obstruction at the anal level is much less likely. PQRS Compliance Statement: One or more of the following individualized dose reduction techniques were utilized for this examination: 1. Automated exposure control 2. Adjustment of the mA and/or kV according to patient size 3. Use of iterative reconstruction technique
[2016-12-07 15:00] VITALS: BP 121/62
[2016-12-07 19:00] VITALS: BP 134/53
[2016-12-07] MEDS: PIPERACILLIN/TAZOBACTAM 2.25 GM in IV NORMAL SALINE 50ML 50 ML IV SCH (19:00)
[2016-12-07] MEDS: SIMVASTATIN 20 MG TABLET PO SCH (20:34)
[2016-12-07] MEDS: MIRTAZAPINE 15 MG TABLET PO SCH (20:34)
[2016-12-07 23:00] VITALS: BP 135/54
[2016-12-08] MEDS: PIPERACILLIN/TAZOBACTAM 2.25 GM in IV NORMAL SALINE 50ML 50 ML IV SCH ×5 (01:42→23:26)
[2016-12-08 03:00] VITALS: BP 121/58
[2016-12-08 05:15] LABS: BASO % 0 % (0-3); EOS % 1 % (0-3); HEMATOCRIT 29.2 % (36.0-47.0); HEMOGLOBIN 9.7 g/dL (12.0-15.5); LYMPH # 0.9 x10^3/uL (1.0-4.8); LYMPH % 17 % (24-48); MEAN CORPUSCULAR HEMOGLOBIN 28 pg (25-35); MEAN CORPUSCULAR HGB CONC 33 g/dL (31-37); MEAN CORPUSCULAR VOLUME 85 fL (79-100); MONO % 9 % (0-9); NEUT % 72 % (31-73); PLATELET COUNT 183 x10^3/uL (140-400); RED BLOOD COUNT 3.42 x10^6/uL (3.50-5.40); RED CELL DISTRIBUTION WIDTH 14.2 % (11.5-14.5); WHITE BLOOD COUNT 4.9 x10^3/uL (4.0-11.0)
[2016-12-08 05:34] LABS: CALCIUM 6.9 mg/dL (8.5-10.1); CREATININE 0.6 mg/dL (0.6-1.0); GFR 94.6; POTASSIUM 3.3 mmol/L (3.5-5.1)
[2016-12-08] MEDS: LINACLOTIDE 145 MCG CAPSULE. PO SCH (06:41)
[2016-12-08 07:00] VITALS: BP 121/61
--- NOTE | 2016-12-08 08:17 | PDOC ---
GENERAL General: vss with tmax 100.2. awake and alert and seems more comfortable this am. abdomen still very distended and tender more so on left side. ct abdomen/pelvis cw atonic colon. iv antibiotics per ID. not sure we have a solution to this difficult problem. swallowing concerns per nursing and swallow eval ordered for same. Problems: VITAL SIGNS Vital Signs: Vital Signs Date Time Temp Pulse Resp B/P (MAP) Pulse Ox O2 Delivery O2 Flow Rate FiO2 12/08/16 07:00 98.0 90 18 121/61 (81) 95 Room Air 98.0 I & O I & O Intake and Output 12/08/16 07:00 Intake Total 1075 ml Output Total 0 ml Balance 1075 ml IV Total 1075 ml Output Urine Total 0 ml # Voids 3 # Bowel Movements 2 ALLERGIES Allergies: Allergies Coded Allergies Type Severity Reaction Last Updated Verified No Known Drug Allergies 12/16/13 No MEDS Medications: Current Medications Medications (Trade) Dose Ordered Sig/Peggy Start Time Stop Time Status Last Admin Dose Admin Acetaminophen (Tylenol) 325 mg PRN Q6HRS PRN 12/05/16 13:45 12/07/16 19:29 325 MG Bisacodyl (Dulcolax Supp) 10 mg 1X ONCE 12/07/16 14:00 12/07/16 14:01 DC 12/07/16 15:09 10 MG Ceftriaxone Sodium 1 gm/ Sodium Chloride 50 ml @ 100 mls/hr Q24H 12/05/16 09:00 12/07/16 08:54 DC 12/06/16 10:28 100 MLS/HR Docusate Sodium (Colace) 100 mg DAILY 12/04/16 09:00 12/07/16 08:48 100 MG Ergocalciferol (Vitamin D2) 50,000 unit WEEKLY 12/10/16 09:00 Famotidine (Pepcid) 20 mg DAILY 12/03/16 17:00 12/07/16 08:50 20 MG Linaclotide (Linzess) 145 mcg DAILY07 12/08/16 07:00 12/08/16 06:41 145 MCG Mirtazapine (Remeron) 15 mg HS 12/03/16 21:00 12/06/16 20:51 15 MG Ondansetron HCl (Zofran) 4 mg PRN Q6HRS PRN 12/03/16 16:30 Piperacillin Sod/ Tazobactam Sod 2.25 gm/Sodium Chloride 50 ml @ 100 mls/hr Q6HRS 12/07/16 19:00 12/08/16 05:46 100 MLS/HR Potassium Chloride/Sodium Chloride 1,000 ml @ 50 mls/hr Q20H 12/03/16 17:00 12/08/16 01:44 50 MLS/HR Simvastatin (Zocor) 20 mg HS 12/03/16 21:00 12/06/16 20:51 20 MG Sodium Chloride 1,000 ml @ 150 mls/hr Q6H40M 12/03/16 14:37 12/03/16 16:33 DC LAB Lab: Laboratory Tests Test 12/07/16 11:25 12/08/16 03:09 Glucose (Fingerstick) 96 mg/dL (70-99) White Blood Count 4.9 x10^3/uL (4.0-11.0) Red Blood Count 3.42 x10^6/uL (3.50-5.40) Hemoglobin 9.7 g/dL (12.0-15.5) Hematocrit 29.2 % (36.0-47.0) Mean Corpuscular Volume 85 fL (79-100) Mean Corpuscular Hemoglobin 28 pg (25-35) Mean Corpuscular Hemoglobin Concent 33 g/dL (31-37) Red Cell Distribution Width 14.2 % (11.5-14.5) Platelet Count 183 x10^3/uL (140-400) Neutrophils (%) (Auto) 72 % (31-73) Lymphocytes (%) (Auto) 17 % (24-48) Monocytes (%) (Auto) 9 % (0-9) Eosinophils (%) (Auto) 1 % (0-3) Basophils (%) (Auto) 0 % (0-3) Neutrophils # (Auto) 3.6 x10^3uL (1.8-7.7) Lymphocytes # (Auto) 0.9 x10^3/uL (1.0-4.8) Monocytes # (Auto) 0.4 x10^3/uL (0.0-1.1) Eosinophils # (Auto) 0.0 x10^3/uL (0.0-0.7) Basophils # (Auto) 0.0 x10^3/uL (0.0-0.2) Sodium Level 147 mmol/L (136-145) Potassium Level 3.3 mmol/L (3.5-5.1) Chloride Level 116 mmol/L (98-107) Carbon Dioxide Level 19 mmol/L (21-32) Anion Gap 12 (6-14) Blood Urea Nitrogen 11 mg/dL (7-20) Creatinine 0.6 mg/dL (0.6-1.0) Estimated GFR (Cockcroft-Gault) 94.6 Glucose Level 83 mg/dL (70-99) Calcium Level 6.9 mg/dL (8.5-10.1) Nutrition Consultation Dietary Evaluation: Recommendations by RD: Increase Calorie Intake, Protein supplementation Comments: diet advancement, offer supplements prn Expected Outcomes/Goals: to meet > 75% est nutr needs Malnutrition Findings: Body Fat Depletion (Non Severe: Mild Depletion Reduced [employer] Umpire Strength: N/A Malnutrition related to morbid: No Weight Status: Appropriate ORION RALPH MD Dec 08, 2016 08:17
[2016-12-08] MEDS: DOCUSATE SODIUM 100 MG CAPSULE. PO SCH (08:21)
[2016-12-08] MEDS: FAMOTIDINE 20 MG/2 ML VIAL IVP SCH (08:22)
--- NOTE | 2016-12-08 10:52 | PDOC ---
Infectious Disease Note Subjective Subjective Passed bedside swallow study. 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: arouses easily to name, follows commands Peripheral IV ok Labs Lab Laboratory Tests Test 12/07/16 11:25 12/08/16 03:09 Glucose (Fingerstick) 96 mg/dL (70-99) White Blood Count 4.9 x10^3/uL (4.0-11.0) Red Blood Count 3.42 x10^6/uL (3.50-5.40) Hemoglobin 9.7 g/dL (12.0-15.5) Hematocrit 29.2 % (36.0-47.0) Mean Corpuscular Volume 85 fL (79-100) Mean Corpuscular Hemoglobin 28 pg (25-35) Mean Corpuscular Hemoglobin Concent 33 g/dL (31-37) Red Cell Distribution Width 14.2 % (11.5-14.5) Platelet Count 183 x10^3/uL (140-400) Neutrophils (%) (Auto) 72 % (31-73) Lymphocytes (%) (Auto) 17 % (24-48) Monocytes (%) (Auto) 9 % (0-9) Eosinophils (%) (Auto) 1 % (0-3) Basophils (%) (Auto) 0 % (0-3) Neutrophils # (Auto) 3.6 x10^3uL (1.8-7.7) Lymphocytes # (Auto) 0.9 x10^3/uL (1.0-4.8) Monocytes # (Auto) 0.4 x10^3/uL (0.0-1.1) Eosinophils # (Auto) 0.0 x10^3/uL (0.0-0.7) Basophils # (Auto) 0.0 x10^3/uL (0.0-0.2) Sodium Level 147 mmol/L (136-145) Potassium Level 3.3 mmol/L (3.5-5.1) Chloride Level 116 mmol/L (98-107) Carbon Dioxide Level 19 mmol/L (21-32) Anion Gap 12 (6-14) Blood Urea Nitrogen 11 mg/dL (7-20) Creatinine 0.6 mg/dL (0.6-1.0) Estimated GFR (Cockcroft-Gault) 94.6 Glucose Level 83 mg/dL (70-99) Calcium Level 6.9 mg/dL (8.5-10.1) CT of the abdomen and pelvis without contrast, 12/07/2016: IMPRESSION: 1. Small bilateral pleural effusions with mild bibasilar atelectasis. 2. Anasarca. 3. Small volume of ascites. 4. Cholelithiasis. 5. Generalized distention of the colon with gas, stool and fluid suggesting an atonic colon. Obstruction at the anal level is much less likely. Micro URINE CULTURE Final Final report URINE CULTURE RES 1 Final Aerococcus urinae Greater than 100,000 colony forming units per mL Aerococcus urinae has been described as susceptible to penicillin, amoxicillin, piperacillin, cefepime, rifampin, and nitrofurantoin, and resistant to sulfonamides. URINE CULTURE RES 2 Final Gram negative rods Less than 10,000 colonies/mL Objective Assessment Fever Abd pain-better Abd distension. 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 The chart was reviewed. The case was discussed. Agree with the plan of care. KENN POZO APRN Dec 08, 2016 10:51 SABINA HAMPTON MD Dec 08, 2016 16:26
[2016-12-08 11:00] VITALS: BP 114/55
--- NOTE | 2016-12-08 12:39 | PDOC ---
Subjective: Subjective: Denies pain. Objective: Objective: 2 stools charted, RN received report stools were liquid but none this shift. Vital Signs: Vital Signs Date Time Temp Pulse Resp B/P (MAP) Pulse Ox O2 Delivery O2 Flow Rate FiO2 12/08/16 11:00 98.6 84 18 114/55 (74) 93 Room Air 98.6 Labs: Laboratory Tests Test 12/08/16 03:09 White Blood Count 4.9 x10^3/uL Red Blood Count 3.42 x10^6/uL Hemoglobin 9.7 g/dL Hematocrit 29.2 % Mean Corpuscular Volume 85 fL Mean Corpuscular Hemoglobin 28 pg Mean Corpuscular Hemoglobin Concent 33 g/dL Red Cell Distribution Width 14.2 % Platelet Count 183 x10^3/uL Neutrophils (%) (Auto) 72 % Lymphocytes (%) (Auto) 17 % Monocytes (%) (Auto) 9 % Eosinophils (%) (Auto) 1 % Basophils (%) (Auto) 0 % Neutrophils # (Auto) 3.6 x10^3uL Lymphocytes # (Auto) 0.9 x10^3/uL Monocytes # (Auto) 0.4 x10^3/uL Eosinophils # (Auto) 0.0 x10^3/uL Basophils # (Auto) 0.0 x10^3/uL Sodium Level 147 mmol/L Potassium Level 3.3 mmol/L Chloride Level 116 mmol/L Carbon Dioxide Level 19 mmol/L Anion Gap 12 Blood Urea Nitrogen 11 mg/dL Creatinine 0.6 mg/dL Estimated GFR (Cockcroft-Gault) 94.6 Glucose Level 83 mg/dL Calcium Level 6.9 mg/dL Imaging: CT A/P 12/07/16 IMPRESSION: 1. Small bilateral pleural effusions with mild bibasilar atelectasis. 2. Anasarca. 3. Small volume of ascites. 4. Cholelithiasis. 5. Generalized distention of the colon with gas, stool and fluid suggesting an atonic colon. Obstruction at the anal level is much less likely. PE: GEN: NAD ABD: distended - seems about the same, tympanic, moans w/ LLQ palpation NEURO/PSYCH: awake A/P: Abdominal distention/discomfort -has had Dulcolax supp x2, started Linzess today -passing liquid stools -CT as above w/ gas and stool, possible atonic colon -- Will review w/ Dr. Dudley. DONNA RIVAS Dec 08, 2016 12:39
[2016-12-08 15:00] VITALS: BP 121/60
[2016-12-08] MEDS: BISACODYL 10 MG SUPP.RECT. PR SCH (16:36)
[2016-12-08] MEDS: ACETAMINOPHEN 325 MG SUPP.RECT. PR PRN (16:36)
[2016-12-08 19:59] VITALS: BP 142/58
[2016-12-08] MEDS: MIRTAZAPINE 15 MG TABLET PO SCH (20:29)
[2016-12-08] MEDS: ACETAMINOPHEN 500 MG TABLET PO PRN (20:29)
[2016-12-08] MEDS: SIMVASTATIN 20 MG TABLET PO SCH (20:30)
[2016-12-08 22:34] VITALS: BP 146/58
[2016-12-09 03:47] VITALS: BP 160/61
[2016-12-09] MEDS: PIPERACILLIN/TAZOBACTAM 2.25 GM in IV NORMAL SALINE 50ML 50 ML IV SCH (06:24)
[2016-12-09 07:00] VITALS: BP 134/56
--- NOTE | 2016-12-09 07:39 | PDOC ---
Infectious Disease Note Subjective Subjective Feeling ok, denies pain, N/V or cough + BM No fever so far today ROS ROS GEN: Denies fevers, chills, sweats HEENT: Denies blurred vision, sore throat CV: Denies chest pain RESP: Denies shortness of air, cough GI: Denies n/v/d NEURO: Denies confusion, dizziness MSK: Denies weakness, joint pain/swelling Vital Sign Vital Signs Vital Signs Date Time Temp Pulse Resp B/P (MAP) Pulse Ox O2 Delivery O2 Flow Rate FiO2 12/09/16 03:47 97.5 86 20 160/61 (94) 96 Room Air 97.5 Physical Exam PHYSICAL EXAM GENERAL: NAD, Alert HEENT: PERRL, OC/OP - clear NECK: Supple, no JVD, no LN LUNGS: Clear HEART: S1S2, no gallop, no murmur ABD: Soft, Less distended and no significant tenderness on light palpation, no rebound EXT: No edema, no cyanosis CAR CHECKER: Alert, oriented, no focal neurologic deficit SKIN: No rash IV: ok Labs Lab Laboratory Tests Test 12/08/16 11:55 12/08/16 22:17 Glucose (Fingerstick) 138 mg/dL (70-99) 163 mg/dL (70-99) Objective Assessment Fever - beyyet overall and may be related to ileus Abd pain-better Abd distension. Findings on CT c/w atonic colon - Had BM last pm UTI - POA Aerococcus in urine + GNR < 10,000 CFU/ml Plan Plan of Care Discontinue Zosyn and monitor Supportive care SABINA HAMPTON MD Dec 09, 2016 07:39
[2016-12-09] MEDS: BISACODYL 10 MG SUPP.RECT. PR SCH (09:00)
[2016-12-09] MEDS: LINACLOTIDE 145 MCG CAPSULE. PO SCH (09:35)
[2016-12-09] MEDS: FAMOTIDINE 20 MG/2 ML VIAL IVP SCH (09:35)
[2016-12-09] MEDS: DOCUSATE SODIUM 100 MG CAPSULE. PO SCH (09:35)
--- NOTE | 2016-12-09 10:03 | PDOC ---
GENERAL General: vss and afebrile. voice no complaints but continued abdominal distention and tenderness to palpation. rest exam same. Na 147 and K+ 3.3. continues low grade temp. will replace K+ and hope GI has something up their sleeve for this seemingly unsolvable problem. passed swallow test. Problems: VITAL SIGNS Vital Signs: Vital Signs Date Time Temp Pulse Resp B/P (MAP) Pulse Ox O2 Delivery O2 Flow Rate FiO2 12/09/16 07:00 97.2 69 22 134/56 (82) 97 Room Air 97.2 I & O I & O Intake and Output 12/09/16 07:00 Intake Total 2000 ml Balance 2000 ml Intake Oral 1000 ml IV Total 1000 ml # Voids 7 # Bowel Movements 3 ALLERGIES Allergies: Allergies Coded Allergies Type Severity Reaction Last Updated Verified No Known Drug Allergies 12/16/13 No MEDS Medications: Current Medications Medications (Trade) Dose Ordered Sig/Peggy Start Time Stop Time Status Last Admin Dose Admin Acetaminophen (Tylenol) 325 mg PRN Q6HRS PRN 12/05/16 13:45 12/08/16 16:36 325 MG Bisacodyl (Dulcolax Supp) 10 mg DAILY 12/08/16 16:30 12/08/16 16:36 10 MG Ceftriaxone Sodium 1 gm/ Sodium Chloride 50 ml @ 100 mls/hr Q24H 12/05/16 09:00 12/07/16 08:54 DC 12/06/16 10:28 100 MLS/HR Docusate Sodium (Colace) 100 mg DAILY 12/04/16 09:00 12/09/16 09:35 100 MG Ergocalciferol (Vitamin D2) 50,000 unit WEEKLY 12/10/16 09:00 Famotidine (Pepcid) 20 mg DAILY 12/03/16 17:00 12/09/16 09:35 20 MG Linaclotide (Linzess) 145 mcg DAILY07 12/08/16 07:00 12/09/16 09:35 145 MCG Mirtazapine (Remeron) 15 mg HS 12/03/16 21:00 12/08/16 20:29 15 MG Ondansetron HCl (Zofran) 4 mg PRN Q6HRS PRN 12/03/16 16:30 Piperacillin Sod/ Tazobactam Sod 2.25 gm/Sodium Chloride 50 ml @ 100 mls/hr Q6HRS 12/07/16 19:00 12/09/16 07:40 DC 12/09/16 06:24 100 MLS/HR Potassium Chloride/Sodium Chloride 1,000 ml @ 50 mls/hr Q20H 12/03/16 17:00 12/08/16 23:28 50 MLS/HR Simvastatin (Zocor) 20 mg HS 12/03/16 21:00 12/08/16 20:30 20 MG Sodium Chloride 1,000 ml @ 150 mls/hr Q6H40M 12/03/16 14:37 12/03/16 16:33 DC LAB Lab: Laboratory Tests Test 12/08/16 11:55 12/08/16 22:17 12/09/16 08:06 Glucose (Fingerstick) 138 mg/dL (70-99) 163 mg/dL (70-99) 113 mg/dL (70-99) Nutrition Consultation Dietary Evaluation: Recommendations by RD: Increase Calorie Intake, Protein supplementation Comments: diet advancement, offer supplements prn Expected Outcomes/Goals: to meet > 75% est nutr needs Malnutrition Findings: Body Fat Depletion (Non Severe: Mild Depletion Reduced Allied Health Professional Strength: N/A Malnutrition related to morbid: No Weight Status: Appropriate ORION RALPH MD Dec 09, 2016 10:03
[2016-12-09 11:00] VITALS: BP 132/72
[2016-12-09] MEDS: POTASSIUM CHLORIDE 40 MEQ in IV 1/2 NORMAL SALINE 1,000 ML IV SCH (11:39)
--- NOTE | 2016-12-09 13:11 | PDOC ---
GI PROGRESS NOTES Date Date/Time DATE: 12/09/16 TIME: 13:08 Subjective Subjective sleeping- states feels better and abd less distended reports 1-2 BM yesterday and today Objective Vitals Vital Signs Date Time Temp Pulse Resp B/P (MAP) Pulse Ox O2 Delivery O2 Flow Rate FiO2 12/09/16 11:00 97.0 88 18 132/72 (92) 96 Room Air 97.0 12/09/16 08:00 Room Air 12/09/16 07:00 97.2 69 22 134/56 (82) 97 Room Air 97.2 12/09/16 03:47 97.5 86 20 160/61 (94) 96 Room Air 97.5 12/08/16 22:34 97.9 90 18 146/58 (87) 94 Room Air 97.9 12/08/16 20:00 Room Air 12/08/16 19:59 100.0 92 20 142/58 (86) 95 Room Air 100.0 12/08/16 15:00 99.0 88 18 121/60 (80) 94 Room Air 99.0 Labs Labs Laboratory Tests Test 12/08/16 22:17 12/09/16 08:06 Glucose (Fingerstick) 163 mg/dL (70-99) 113 mg/dL (70-99) Physical Exam Physical Exam chest- clear abd- mildly distended still but not tender BS are reduced but + Assessment Assessment Colonic ileus- improved with BM- not seen last year (distension) but did have constipation and rectal wall thickening in 2016 and now- not likely obstructive - more likely age, meds, inactivity, and maybe electrolytes are playing a role Problems: Plan Plan continue Linzess and prn dulcolax and monitor CRISTINA CARBALLO MD Dec 09, 2016 13:11
[2016-12-09 15:00] VITALS: BP 120/66
[2016-12-09 19:43] VITALS: BP 132/58
[2016-12-09] MEDS: SIMVASTATIN 20 MG TABLET PO SCH (20:32)
[2016-12-09] MEDS: MIRTAZAPINE 15 MG TABLET PO SCH (20:32)
[2016-12-09 23:24] VITALS: BP 128/62
[2016-12-10] MEDS: POTASSIUM CHLORIDE 40 MEQ in IV 1/2 NORMAL SALINE 1,000 ML IV SCH ×2 (01:29→14:11)
[2016-12-10 03:00] VITALS: BP 119/53
[2016-12-10 04:59] LABS: CALCIUM 6.6 mg/dL (8.5-10.1); CREATININE 0.7 mg/dL (0.6-1.0); GFR 79.2; POTASSIUM 3.6 mmol/L (3.5-5.1)
[2016-12-10 07:00] VITALS: BP 140/64
[2016-12-10] MEDS: LINACLOTIDE 145 MCG CAPSULE. PO SCH (07:11)
[2016-12-10] MEDS: FAMOTIDINE 20 MG TABLET. PO SCH (08:35)
[2016-12-10] MEDS: BISACODYL 10 MG SUPP.RECT. PR SCH (08:35)
[2016-12-10] MEDS: DOCUSATE SODIUM 100 MG CAPSULE. PO SCH (08:35)
[2016-12-10] MEDS ORDERED: ERGOCALCIFEROL (VITAMIN D2) 50,000 UNIT CAPSULE. PO SCH (09:00)
[2016-12-10 11:00] VITALS: BP 138/76
--- NOTE | 2016-12-10 12:08 | PDOC ---
GENERAL General: vss and no further fevers. feel better this am. abdomen definitely less distended this am and no tenderness to palpation today. several liquid bm's last 24 hrs per nursing. sugars good and Na still high at 147. continue same. Problems: VITAL SIGNS Vital Signs: Vital Signs Date Time Temp Pulse Resp B/P (MAP) Pulse Ox O2 Delivery O2 Flow Rate FiO2 12/10/16 11:00 97.8 93 24 138/76 (96) 96 Room Air 97.8 I & O I & O Intake and Output 12/10/16 07:00 Intake Total 922 ml Balance 922 ml Intake Oral 922 ml # Voids 8 # Bowel Movements 2 ALLERGIES Allergies: Allergies Coded Allergies Type Severity Reaction Last Updated Verified No Known Drug Allergies 12/16/13 No MEDS Medications: Current Medications Medications (Trade) Dose Ordered Sig/Peggy Start Time Stop Time Status Last Admin Dose Admin Acetaminophen (Tylenol) 325 mg PRN Q6HRS PRN 12/05/16 13:45 12/08/16 16:36 325 MG Bisacodyl (Dulcolax Supp) 10 mg DAILY 12/08/16 16:30 12/09/16 09:00 10 MG Ceftriaxone Sodium 1 gm/ Sodium Chloride 50 ml @ 100 mls/hr Q24H 12/05/16 09:00 12/07/16 08:54 DC 12/06/16 10:28 100 MLS/HR Docusate Sodium (Colace) 100 mg DAILY 12/04/16 09:00 12/10/16 08:35 100 MG Ergocalciferol (Vitamin D2) 50,000 unit WEEKLY 12/10/16 09:00 12/10/16 08:35 50,000 UNIT Famotidine (Pepcid) 20 mg DAILY 12/10/16 09:00 12/10/16 08:35 20 MG Linaclotide (Linzess) 145 mcg DAILY07 12/08/16 07:00 12/10/16 07:11 145 MCG Mirtazapine (Remeron) 15 mg HS 12/03/16 21:00 12/09/16 20:32 15 MG Ondansetron HCl (Zofran) 4 mg PRN Q6HRS PRN 12/03/16 16:30 Piperacillin Sod/ Tazobactam Sod 2.25 gm/Sodium Chloride 50 ml @ 100 mls/hr Q6HRS 12/07/16 19:00 12/09/16 07:40 DC 12/09/16 06:24 100 MLS/HR Potassium Chloride 40 meq/ Sodium Chloride 1,020 ml @ 75 mls/hr [id number] 12/09/16 10:30 12/10/16 01:29 75 MLS/HR Potassium Chloride/Sodium Chloride 1,000 ml @ 50 mls/hr Q20H 12/03/16 17:00 12/09/16 11:27 DC 12/08/16 23:28 50 MLS/HR Simvastatin (Zocor) 20 mg HS 12/03/16 21:00 12/09/16 20:32 20 MG Sodium Chloride 1,000 ml @ 150 mls/hr Q6H40M 12/03/16 14:37 12/03/16 16:33 DC LAB Lab: Laboratory Tests Test 12/09/16 16:55 12/10/16 00:50 12/10/16 03:25 12/10/16 07:46 Glucose (Fingerstick) 93 mg/dL (70-99) 99 mg/dL (70-99) 102 mg/dL (70-99) Sodium Level 147 mmol/L (136-145) Potassium Level 3.6 mmol/L (3.5-5.1) Chloride Level 118 mmol/L (98-107) Carbon Dioxide Level 17 mmol/L (21-32) Anion Gap 12 (6-14) Blood Urea Nitrogen 9 mg/dL (7-20) Creatinine 0.7 mg/dL (0.6-1.0) Estimated GFR (Cockcroft-Gault) 79.2 Glucose Level 102 mg/dL (70-99) Calcium Level 6.6 mg/dL (8.5-10.1) Nutrition Consultation Dietary Evaluation: Recommendations by RD: Increase Calorie Intake, Protein supplementation Comments: diet advancement, offer supplements prn Expected Outcomes/Goals: to meet > 75% est nutr needs Malnutrition Findings: Body Fat Depletion (Non Severe: Mild Depletion Reduced Clamp Remover Strength: N/A Malnutrition related to morbid: No Weight Status: Appropriate ORION RALPH MD Dec 10, 2016 12:08
--- NOTE | 2016-12-10 13:00 | PDOC ---
Infectious Disease Note Subjective Subjective Feeling ok, denies pain, N/V or cough + BM No fever so far today ROS ROS GEN: Denies fevers, chills, sweats HEENT: Denies blurred vision, sore throat CV: Denies chest pain RESP: Denies shortness of air, cough GI: Denies n/v/d NEURO: Denies confusion, dizziness MSK: Denies weakness, joint pain/swelling Vital Sign Vital Signs Vital Signs Date Time Temp Pulse Resp B/P (MAP) Pulse Ox O2 Delivery O2 Flow Rate FiO2 12/10/16 11:00 97.8 93 24 138/76 (96) 96 Room Air 97.8 Physical Exam PHYSICAL EXAM GENERAL: NAD, Alert, in bed and appears comfortable HEENT: PERRL, OC/OP NECK: Supple, no JVD, no LN LUNGS: Clear HEART: S1S2, no gallop, no murmur ABD: Soft, NT, no organomegaly, no rebound. min distension EXT: No edema, no cyanosis SCALE MECHANIC: Alert, oriented, no focal neurologic deficit SKIN: No rash IV: ok Labs Lab Laboratory Tests Test 12/09/16 16:55 12/10/16 00:50 12/10/16 03:25 12/10/16 07:46 Glucose (Fingerstick) 93 mg/dL (70-99) 99 mg/dL (70-99) 102 mg/dL (70-99) Sodium Level 147 mmol/L (136-145) Potassium Level 3.6 mmol/L (3.5-5.1) Chloride Level 118 mmol/L (98-107) Carbon Dioxide Level 17 mmol/L (21-32) Anion Gap 12 (6-14) Blood Urea Nitrogen 9 mg/dL (7-20) Creatinine 0.7 mg/dL (0.6-1.0) Estimated GFR (Cockcroft-Gault) 79.2 Glucose Level 102 mg/dL (70-99) Calcium Level 6.6 mg/dL (8.5-10.1) Objective Assessment Fever - better yet overall and may be related to ileus Abd pain-better Abd distension. Findings on CT c/w atonic colon - Had BM last pm UTI - POA Aerococcus in urine + GNR < 10,000 CFU/ml Plan Plan of Care ID to sign off SABINA HAMPTON MD Dec 10, 2016 13:00
[2016-12-10 15:00] VITALS: BP 163/73
[2016-12-10 19:00] VITALS: BP 162/77
[2016-12-10] MEDS: SIMVASTATIN 20 MG TABLET PO SCH (19:58)
[2016-12-10] MEDS: MIRTAZAPINE 15 MG TABLET PO SCH (19:58)
[2016-12-10 22:58] VITALS: BP 139/70
[2016-12-11 03:12] VITALS: BP 143/69
[2016-12-11] MEDS: POTASSIUM CHLORIDE 40 MEQ in IV 1/2 NORMAL SALINE 1,000 ML IV SCH (04:08)
[2016-12-11 04:55] LABS: CALCIUM 6.7 mg/dL (8.5-10.1); CREATININE 0.6 mg/dL (0.6-1.0); GFR 94.6; POTASSIUM 3.9 mmol/L (3.5-5.1)
[2016-12-11] MEDS: LINACLOTIDE 145 MCG CAPSULE. PO SCH (06:14)
[2016-12-11 07:00] VITALS: BP 133/74
--- NOTE | 2016-12-11 08:16 | PDOC3 ---
DISCHARGE SUMMARY DISCHARGE SUMMARY: final diagnosis was severe dehydration with prerenal azotemia on admit likely due to atonic colon and poor intake. abdominal distention finally began to decrease by dc with addition of linzess, etc. taking po fair at dc. will need to keep close eye on her at dc. Na came down to normal level and prerenal azotemia resolved. at baseline demented mental status at return to [facility]. ORION RALPH MD Dec 11, 2016 08:16
[2016-12-11] MEDS: BISACODYL 10 MG SUPP.RECT. PR SCH (09:37)
[2016-12-11] MEDS: FAMOTIDINE 20 MG TABLET. PO SCH (09:37)
[2016-12-11] MEDS: DOCUSATE SODIUM 100 MG CAPSULE. PO SCH (09:37)
[2016-12-11] MEDS: ACETAMINOPHEN 500 MG TABLET PO PRN (09:38)
[2016-12-11 11:00] VITALS: BP 104/55
--- NOTE | 2016-12-11 11:18 | PDOC ---
Objective: Objective: Reviewed other notes. Vital Signs: Vital Signs Date Time Temp Pulse Resp B/P (MAP) Pulse Ox O2 Delivery O2 Flow Rate FiO2 12/11/16 11:00 98.2 95 20 104/55 (71) 92 Room Air 98.2 Labs: Laboratory Tests Test 12/10/16 17:11 12/10/16 20:02 12/11/16 04:00 12/11/16 07:08 Glucose (Fingerstick) 101 mg/dL 107 mg/dL 94 mg/dL Sodium Level 146 mmol/L Potassium Level 3.9 mmol/L Chloride Level 118 mmol/L Carbon Dioxide Level 18 mmol/L Anion Gap 10 Blood Urea Nitrogen 9 mg/dL Creatinine 0.6 mg/dL Estimated GFR (Cockcroft-Gault) 94.6 Glucose Level 92 mg/dL Calcium Level 6.7 mg/dL Test 12/11/16 10:23 Glucose (Fingerstick) 129 mg/dL PE: GEN: NAD LUNGS: clear HEART: RRR ABD: distended, softer, non-tender, tympanic NEURO/PSYCH: was asleep, awakens for exam, mumbling A/P: Abdominal distention/discomfort, constipation -improved w/ Linzess and Dulcolax suppositories -- Note DC plans - okay per GI, would continue same treatment. DONNA RIVAS Dec 11, 2016 11:18
[2016-12-11 15:00] VITALS: BP 116/63
== END 2016-12-11 16:05 | DRG 391 ==
LOC: ER 12:31 → 2 NORTH 14:36 → 5 NORTH 12-05 18:23
PROVIDERS: ADMIT Family Medicine; ATTEND Family Medicine
DX: K59.8 Other specified functional intestinal disorders (principal); E43 Unspecified severe protein-calorie malnutrition; G92 Toxic encephalopathy; N39.0 Urinary tract infection, site not specified; E87.0 Hyperosmolality and hypernatremia; R18.8 Other ascites; J98.11 Atelectasis; K56.7 Ileus, unspecified; K59.39 Other megacolon; D64.9 Anemia, unspecified; I50.9 Heart failure, unspecified; I27.2 Other secondary pulmonary hypertension; I25.10 Atherosclerotic heart disease of native coronary artery without angina pectoris; I11.0 Hypertensive heart disease with heart failure; F03.90 Unspecified dementia, unspecified severity, without behavioral disturbance, psychotic disturbance, mood disturbance, and anxiety; J44.9 Chronic obstructive pulmonary disease, unspecified; K21.9 Gastro-esophageal reflux disease without esophagitis; E78.5 Hyperlipidemia, unspecified; E86.0 Dehydration; K59.00 Constipation, unspecified; E11.9 Type 2 diabetes mellitus without complications; K80.20 Calculus of gallbladder without cholecystitis without obstruction; M19.90 Unspecified osteoarthritis, unspecified site; Z82.49 Family history of ischemic heart disease and other diseases of the circulatory system; Z83.3 Family history of diabetes mellitus; Z86.73 Personal history of transient ischemic attack (TIA), and cerebral infarction without residual deficits; Z98.49 Cataract extraction status, unspecified eye; Z87.11 Personal history of peptic ulcer disease; Z90.710 Acquired absence of both cervix and uterus; Z95.1 Presence of aortocoronary bypass graft; I25.2 Old myocardial infarction; Z68.23 Body mass index [BMI] 23.0-23.9, adult
CPT/HCPCS: 36415; 71010; 74000; 74176; 76770; 80048; 80053; 81001; 82962; 84443; 84484; 85027; 87086; 87324; 87641; 93005; 96360; 96361; A6539; J0696; J2543; J7040; S0028; 92526; 92610; 99291-25

== ENCOUNTER 2016-12-12 18:13 | Inpatient (IN) | payer MEDICARE ==
[~2016-12-12] VITALS: Ht 162.6 cm; Wt 59.0 kg
[~2016-12-12 18:13] MED LIST changes: +ERGO500027 PO; +MIRT15TA5 PO; +SIMV20TA3 PO
[2016-12-12] MEDS ORDERED: IOHEXOL 300 MG/ML 75 ML VIAL IV ONE (18:45)
[2016-12-12] MEDS ORDERED: IV NORMAL SALINE 500ML BAG 500 ML IV ONE (18:45)
[2016-12-12] MEDS ORDERED: CONTRAST GIVEN MC PRN (19:00)
--- NOTE | 2016-12-12 19:07 | PHYS DOC ---
Past Medical History Past Medical History: Anemia, Arthritis, CHF, Constipation, COPD, Dementia, Diabetes-Type II, Hypertension, UT, P.U.D., Other Additional Past Medical Histor: DYSRYTHMIA,ATELECTASIS,HYPERLIPIDEMIA Past Surgical History: Coronary Bypass Surgery, Hysterectomy, Pacemaker, Other Additional Past Surgical Histo: CABG Alcohol Use: None Drug Use: None Adult General Chief Complaint Chief Complaint: ABDOMINAL PAIN HPI HPI Patient is a 86 year old female who presents with abdominal pain and distention. Patient sent from residential. She was admitted to the hospital for similar complaint and discharged home yesterday. At that time she was diagnosed with atonic colon and had been seen by GI, improving at time of discharge. Since she was discharged she has not been able to eat or drink, now has worsening distention and pain. History limited by her dementia. Nauseated but unknown whether she has been vomiting or passed gas/stool. PCP is Dr. May. Review of Systems Review of Systems Constitutional: Denies fever or chills Eyes: Denies change in visual acuity HENT: Denies nasal congestion or sore throat Respiratory: Denies cough or shortness of breath Cardiovascular: Denies chest pain or edema GI: Reports abdominal pain, nausea, denies vomiting, bloody stools or diarrhea : Denies dysuria or hematuria Musculoskeletal: Denies back pain or joint pain Integument: Denies rash or skin lesions Neurologic: Denies headache, focal weakness or sensory changes Current Medications Current Medications Current Medications Medications (Trade) Dose Ordered Sig/Peggy Start Time Stop Time Status Last Admin Dose Admin Fentanyl Citrate (Fentanyl 2ml Vial) 25 mcg PRN Q15MIN PRN 12/12/16 18:45 12/13/16 18:44 12/12/16 19:27 25 MCG Info (Do NOT chart on this entry -- for MONITORING) 1 each PRN DAILY PRN 12/12/16 19:00 12/14/16 18:59 Iohexol (Omnipaque 300 Mg/ml) 75 ml 1X ONCE 12/12/16 18:45 12/12/16 18:54 DC Morphine Sulfate 2 mg PRN Q2HR PRN 12/12/16 21:15 12/13/16 21:14 Ondansetron HCl (Zofran) 4 mg PRN Q8HRS PRN 12/12/16 21:15 12/13/16 21:14 Sodium Chloride 1,000 ml @ 100 mls/hr Q10H 12/12/16 21:04 12/13/16 21:03 Allergies Allergies Allergies Coded Allergies Type Severity Reaction Last Updated Verified No Known Drug Allergies 12/16/13 No Physical Exam Physical Exam Constitutional: Well developed, well nourished, appears to be in pain, moaning. HENT: Normocephalic, atraumatic, bilateral external ears normal, oropharynx moist, nose normal. Eyes: conjunctiva normal, no discharge. Neck: supple, no stridor. Cardiovascular: RRR, no murmurs, no edema. Lungs & Thorax: LCTAB, no wheezing, no respiratory distress. Abdomen: distended, diffusely tender without rebound/guarding, no masses or pulsatile masses, hypoactive bowel sounds. Skin: Warm, dry, no erythema, no rash. Back: No CVA tenderness. Extremities: No tenderness, no edema. Neurologic: Alert and oriented X 2, no focal deficits noted. Psychologic: agitated. Current Patient Data Vital Signs Vital Signs Date Time Temp Pulse Resp B/P (MAP) Pulse Ox O2 Delivery O2 Flow Rate FiO2 12/12/16 19:27 22 Room Air 12/12/16 18:17 99.3 71 112/75 (87) 95 99.3 Lab Values Laboratory Tests Test 12/12/16 19:00 12/12/16 19:40 White Blood Count 9.9 x10^3/uL (4.0-11.0) # Red Blood Count 4.43 x10^6/uL (3.50-5.40) Hemoglobin 12.2 g/dL (12.0-15.5) Hematocrit 37.8 % (36.0-47.0) Mean Corpuscular Volume 85 fL (79-100) Mean Corpuscular Hemoglobin 27 pg (25-35) Mean Corpuscular Hemoglobin Concent 32 g/dL (31-37) Red Cell Distribution Width 15.8 % (11.5-14.5) H Platelet Count 229 x10^3/uL (140-400) Neutrophils (%) (Auto) 81 % (31-73) H Lymphocytes (%) (Auto) 15 % (24-48) L Monocytes (%) (Auto) 4 % (0-9) Eosinophils (%) (Auto) 0 % (0-3) Basophils (%) (Auto) 0 % (0-3) Neutrophils # (Auto) 8.0 x10^3uL (1.8-7.7) H Lymphocytes # (Auto) 1.4 x10^3/uL (1.0-4.8) Monocytes # (Auto) 0.4 x10^3/uL (0.0-1.1) Eosinophils # (Auto) 0.0 x10^3/uL (0.0-0.7) Basophils # (Auto) 0.0 x10^3/uL (0.0-0.2) Prothrombin Time 19.8 SEC (11.7-14.0) H Prothrombin Time INR 1.8 (0.8-1.1) H PTT 26 SEC (24-38) Sodium Level 144 mmol/L (136-145) Potassium Level 3.4 mmol/L (3.5-5.1) L Chloride Level 116 mmol/L (98-107) H Carbon Dioxide Level 15 mmol/L (21-32) L Anion Gap 13 (6-14) Blood Urea Nitrogen 28 mg/dL (7-20) H Creatinine 1.6 mg/dL (0.6-1.0) H Estimated GFR (Cockcroft-Gault) 30.5 BUN/Creatinine Ratio 18 (6-20) Glucose Level 140 mg/dL (70-99) H Calcium Level 7.3 mg/dL (8.5-10.1) L Total Bilirubin 0.5 mg/dL (0.2-1.0) Aspartate Amino Transferase (AST) 25 U/L (15-37) Alanine Aminotransferase (ALT) 16 U/L (14-59) Alkaline Phosphatase 75 U/L (46-116) Troponin I Quantitative 0.062 ng/mL (0.000-0.055) IO-Nls-X-Type Natriuretic Peptide 5852 pg/mL (0-449) H Total Protein 5.3 g/dL (6.4-8.2) L Albumin 1.8 g/dL (3.4-5.0) L Albumin/Globulin Ratio 0.5 (1.0-1.7) L Lipase 72 U/L (73-393) L Lactic Acid Level 1.0 mmol/L (0.4-2.0) Laboratory Tests 12/12/16 19:00 Laboratory Tests 12/12/16 19:00 EKG EKG interpreted by me: paced rhythm rate 96[] Radiology/Procedures Radiology/Procedures PROCEDURE: CT ABDOMEN PELVIS WO CONTRAST CT study of the abdomen and pelvis without contrast Clinical indications: Abdominal distention. Abdominal pain. TECHNIQUE: Noncontrast helical CT scanning of the abdomen and pelvis was performed. Without contrast, the sensitivity to detect organ pathology and GI tract pathology is decreased. PQRS compliance Statement One or more of the following individualized dose reduction techniques were utilized for this study: 1. Automated exposure control 2. Adjustment of the mA and/or kV according to patient size 3. Use of iterative reconstruction technique COMPARISON: December 07, 2016. FINDINGS: The liver and spleen and pancreas are unremarkable on this noncontrast study. Radiopaque gallstones are seen within the neck of the gallbladder. The gallbladder is mildly distended. No extra hepatic biliary ductal dilatation is seen. No adrenal mass is evident. No hydronephrosis or hydroureter or urinary tract stone is seen. No focal aneurysmal dilatation of the abdominal aorta is seen. No enlarged abdominal or pelvic lymphadenopathy is seen. Stomach is mildly distended. There is mild dilatation of small bowel loops diffusely. There is severe diffuse dilatation of the colon down into the rectosigmoid region. The rectum measures 7.6 cm transversely. The right side of the colon measures 6.3 cm. The left side of the colon measures up to 6.7 cm. Since the previous study, there has been improvement in the dilatation of the sigmoid colon seen previously. The sigmoid colon now measures 7.6 cm transversely and measured 8.9 cm previously. No free air or free fluid is seen. Moderate-sized bilateral pleural effusions and associated compressive atelectasis of both lower lobes is seen which has increased slightly. Calcified atheromatous disease of the coronary arteries is seen. Again seen is a moderate compression fracture T12 which is unchanged. 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 IMPRESSION: Diffuse dilatation of stomach and small and large bowel consistent with diffuse functional ileus. The colonic dilatation was seen previously and there has been mild improvement in the sigmoid colon. The distention extends down into the rectum. There has been an increase in small bowel dilatation and stomach dilatation from the previous study. Increase in moderate-sized bilateral pleural effusions. Electronically signed by: Katina Garay MD (12/12/2016 8:38 PM) [facility] DICTATED and SIGNED BY: KATINA GARAY MD DATE: 12/12/162029[] Course & Med Decision Making Course & Med Decision Making Pertinent Labs and Imaging studies reviewed. (See chart for details) The patient presents with abdominal pain and distention. Gave IV fluids, pain medication, antiemetics. CT shows worsening dilatation of the stomach and small intestine. She is obviously still very uncomfortable and dehydrated. I recommended admission to the hospital for further GI evaluation. Placed orders for RN to place NG tube. Discussed with Dr. May who agrees with NG tube & GI consult. Consulted Dr. Nolasco of GI who has seen her in the past. Troponin slightly elevated but at this time symptoms appear clearly GI in nature; will not pursue further cardiac workup at this time. Patient & family agree with plan of care. She is admitted in stable condition. Confirmed with patient & family that she wishes to be DNR status; this is reflected in orders. [] Dragon Disclaimer Dragon Disclaimer This electronic medical record was generated, in whole or in part, using a voice recognition dictation system. Departure Departure Impression: Primary Impression: Abdominal pain Additional Impressions: Ileus Acute renal failure Hypokalemia Disposition: ADMITTED INPATIENT Admitting Physician: Orion May Condition: GUARDED Referrals: ORION MAY MD (PCP) Problem Qualifiers JULIEN SOMMER MD Dec 12, 2016 19:07
[2016-12-12 19:09] LABS: BASO % 0 % (0-3); EOS % 0 % (0-3); HEMATOCRIT 37.8 % (36.0-47.0); HEMOGLOBIN 12.2 g/dL (12.0-15.5); LYMPH # 1.4 x10^3/uL (1.0-4.8); LYMPH % 15 % (24-48); MEAN CORPUSCULAR HEMOGLOBIN 27 pg (25-35); MEAN CORPUSCULAR HGB CONC 32 g/dL (31-37); MEAN CORPUSCULAR VOLUME 85 fL (79-100); MONO % 4 % (0-9); NEUT % 81 % (31-73); PLATELET COUNT 229 x10^3/uL (140-400); RED BLOOD COUNT 4.43 x10^6/uL (3.50-5.40); RED CELL DISTRIBUTION WIDTH 15.8 % (11.5-14.5); WHITE BLOOD COUNT 9.9 x10^3/uL (4.0-11.0)
[2016-12-12] MEDS ORDERED: ONDANSETRON PF 4 MG/2 ML VIAL. IV ONE (19:15)
[2016-12-12 19:24] LABS: INR 1.8 (0.8-1.1); PROTHROMBIN TIME PATIENT 19.8 SEC (11.7-14.0)
[2016-12-12] MEDS: fentaNYL PF VIAL 100 MCG/2 ML VIAL IV PRN (19:27)
[2016-12-12 19:33] LABS: CALCIUM 7.3 mg/dL (8.5-10.1); CREATININE 1.6 mg/dL (0.6-1.0); GFR 30.5; POTASSIUM 3.4 mmol/L (3.5-5.1)
[2016-12-12 19:39] LABS: ALBUMIN 1.8 g/dL (3.4-5.0); ALBUMIN/GLOBULIN RATIO 0.5 (1.0-1.7); TOTAL BILIRUBIN 0.5 mg/dL (0.2-1.0); TOTAL PROTEIN 5.3 g/dL (6.4-8.2)
--- NOTE | 2016-12-12 20:42 | RAD ---
CT study of the abdomen and pelvis without contrast Clinical indications: Abdominal distention. Abdominal pain. TECHNIQUE: Noncontrast helical CT scanning of the abdomen and pelvis was performed. Without contrast, the sensitivity to detect organ pathology and GI tract pathology is decreased. PQRS compliance Statement One or more of the following individualized dose reduction techniques were utilized for this study: 1. Automated exposure control 2. Adjustment of the mA and/or kV according to patient size 3. Use of iterative reconstruction technique COMPARISON: December 07, 2016. FINDINGS: The liver and spleen and pancreas are unremarkable on this noncontrast study. Radiopaque gallstones are seen within the neck of the gallbladder. The gallbladder is mildly distended. No extra hepatic biliary ductal dilatation is seen. No adrenal mass is evident. No hydronephrosis or hydroureter or urinary tract stone is seen. No focal aneurysmal dilatation of the abdominal aorta is seen. No enlarged abdominal or pelvic lymphadenopathy is seen. Stomach is mildly distended. There is mild dilatation of small bowel loops diffusely. There is severe diffuse dilatation of the colon down into the rectosigmoid region. The rectum measures 7.6 cm transversely. The right side of the colon measures 6.3 cm. The left side of the colon measures up to 6.7 cm. Since the previous study, there has been improvement in the dilatation of the sigmoid colon seen previously. The sigmoid colon now measures 7.6 cm transversely and measured 8.9 cm previously. No free air or free fluid is seen. Moderate-sized bilateral pleural effusions and associated compressive atelectasis of both lower lobes is seen which has increased slightly. Calcified atheromatous disease of the coronary arteries is seen. Again seen is a moderate compression fracture T12 which is unchanged. 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 IMPRESSION: Diffuse dilatation of stomach and small and large bowel consistent with diffuse functional ileus. The colonic dilatation was seen previously and there has been mild improvement in the sigmoid colon. The distention extends down into the rectum. There has been an increase in small bowel dilatation and stomach dilatation from the previous study. Increase in moderate-sized bilateral pleural effusions. Electronically signed by: Kamran Garay MD (12/12/2016 8:38 PM) [facility]
[2016-12-12] MEDS ORDERED: IV NORMAL SALINE 1000ML BAG 1,000 ML IV SCH (21:04)
[2016-12-12] MEDS ORDERED: MORPHINE SULFATE 2 MG/ML DISP.SYRIN. IV PRN (21:15)
[2016-12-12] MEDS ORDERED: ONDANSETRON PF 4 MG/2 ML VIAL. IV PRN (21:15)
[2016-12-12] MEDS ORDERED: IV NORMAL SALINE 1000ML BAG 1,000 ML IV ONE (22:00)
[2016-12-13] VITALS (10 sets, daily range): BP systolic 65–108; BP diastolic 34–62
--- NOTE | 2016-12-13 01:23 | ACF ---
Admission Forms Criteria ABDOMINAL PAIN Clinical Indications for Admission to Inpatient Care (Place 'X' for any and all applicable criteria): Admission is indicated for ANY ONE of the following(1)(2)(3)(4)(5): [X]I. Inpatient admission required rather than observation care (Also use Abdominal Pain: Observation Care, as appropriate) because of ANY ONE of the following: [ ]a) Severe pain requiring acute inpatient management [X]b) Identification of etiology/finding that requires inpatient care (eg, aortic dissection, free air) [ ]c) Absent bowel sounds with complete ileus(6) [ ]d) Suspected toxic megacolon [ ]e) Severe electrolyte abnormalities requiring inpatient care [ ]f) High fever or infection requiring inpatient admission as indicated by ANY ONE of following(7)(8): [ ] i) Appropriate outpatient or observational care antimicrobial treatment unavailable, not effective, or not feasible [ ] ii) Documented bacteremia [ ] iii) Temperature > 104.9 degrees F (oral) [ ] iv) T >103.1 F (oral) or < 96.8 F(rectal) that does not respond to all emergency treatment measures [ ]g) Signs of intestinal obstruction [B] [ ]h) Hemodynamic instability [ ]i) IV fluid to replace significant ongoing losses (greater than 3 L/m2 per day) (12)(13) [ ]j) Percutaneous or open drainage (eg, abscess, biliary tract ) procedures [ ]k) Parenteral nutrition regimen that must be implemented on inpatient basis [ ]l) Other condition,treatment or monitoring requiring inpatient admission. [ ]II. Peritoneal signs present [ ]III. Surgery needed that cannot be performed on an ambulatory basis. [ ]IV. Evaluation requires patient to not eat or drink for extended period ( eg, more than 24 hours). [ ]V. Contraindications and/or Inappropriate clinical situations for Observational Care in patients with abdominal pain, when ANY ONE of the following is required: [ ]a) Thorough evaluation is required to prevent catastrophic events due to delays in diagnosing (e.g.Mesenteric ischemia) 1,3 [ ]b) Patient with severe pathology or with chronic symptoms unlikely to improve in the ED stay (3) [ ]. General contraindications and/or Inappropriate clinical situations for Observational Care in patients with abdominal pain, when ANY ONE of the following is required: [ ]a) Prediction of prolongation of LOS based on ANY ONE of the following may be considered as a contraindication for observational care 2, 3, 4, 5, 6, 7, 8, 9, 10, 11 [ ]i) Age > 65 yrs. [ ]ii) Patient arriving by ambulance [ ]iii) Patient with high acuity [ ]iv) Patient requiring vital sign monitoring [ ]v) Patient on IV medication [ ]b) Systolic blood pressures 180mmHg 3,12 [ ]c) Patient with altered mental status including delirium and other alteration of consciousness, (3) [ ]d) Patient whose discharge disposition will be to a [facility] home or rehabilitation home should not be managed in Emergency Department Observation Unit. CMS rule requires 3 days hospital stay before such placement.3,13 [ ]e) Patient with failure to thrive due to broad array of etiologies 3,16,17 [ ]f) Inability to ambulate 3,14 Extended stay beyond goal length of stay may be needed for(2)(3): [ ]a) Persistent abdominal pain with suspected intra-abdominal process [ ]b) Diagnosed condition requiring continued stay (e.g., pancreatitis, complicated diverticulitis) [ ]c) Surgery (e.g., colectomy) The original [employer] content created by [employer] has been revised. The portions of the content which have been revised are identified through the use of italic text or in bold, and [facility] has neither reviewed nor approved the modified material.All other unmodified content is copyright [employer]. Please see references footnoted in the original [employer] edition 2016 Admission Criteria Met?: Yes NAVI VALVERDE Dec 13, 2016 01:23
[2016-12-13 02:37] LABS: BASO % 0 % (0-3); EOS % 0 % (0-3); HEMATOCRIT 31.8 % (36.0-47.0); HEMOGLOBIN 10.4 g/dL (12.0-15.5); LYMPH % 21 % (24-48); MEAN CORPUSCULAR HEMOGLOBIN 28 pg (25-35); MEAN CORPUSCULAR HGB CONC 33 g/dL (31-37); MEAN CORPUSCULAR VOLUME 85 fL (79-100); MONO % 4 % (0-9); NEUT % 75 % (31-73); PLATELET COUNT 208 x10^3/uL (140-400); RED BLOOD COUNT 3.73 x10^6/uL (3.50-5.40); RED CELL DISTRIBUTION WIDTH 15.6 % (11.5-14.5); WHITE BLOOD COUNT 4.7 x10^3/uL (4.0-11.0)
[2016-12-13 02:52] LABS: CALCIUM 7.2 mg/dL (8.5-10.1); CREATININE 1.5 mg/dL (0.6-1.0); GFR 32.8; POTASSIUM 3.8 mmol/L (3.5-5.1)
[2016-12-13] MEDS: fentaNYL PF VIAL 100 MCG/2 ML VIAL IV PRN (08:56)
--- NOTE | 2016-12-13 09:07 | PDOC ---
Objective: Objective: Some improvement last admission w/ Linzess and Dulcolax. Readmitted after discharge 12/11 w/ worsening distention, abd pain. CT as below, also has NG - little output. RN reviewed w/ primary - ?anything GI can do Vital Signs: Vital Signs Date Time Temp Pulse Resp B/P (MAP) Pulse Ox O2 Delivery O2 Flow Rate FiO2 12/13/16 08:56 28 93 Nasal Cannula 2.0 12/13/16 07:00 98.1 93 99/56 (70) 98.1 Labs: Laboratory Tests Test 12/13/16 07:01 Glucose (Fingerstick) 128 mg/dL (70-99) Imaging: CT A/P IMPRESSION: Diffuse dilatation of stomach and small and large bowel consistent with diffuse functional ileus. The colonic dilatation was seen previously and there has been mild improvement in the sigmoid colon. The distention extends down into the rectum. There has been an increase in small bowel dilatation and stomach dilatation from the previous study. Increase in moderate-sized bilateral pleural effusions. PE: GEN: uncomfortable LUNGS: tachypneic HEART: tachycardic ABD: BS not appreciated, distended, tender to light palpation diffusely NEURO/PSYCH: awake, moaning OTHER: NG w/ minimal brownish output A/P: Abd distention, constipation, chronic bowel distention -- D/w Dr. Dudley. Give Dulcolax suppository now. ?goals of care, ?palliative discussion ([facility] is out of town) DONNA RIVAS Dec 13, 2016 09:07
[2016-12-13] MEDS ORDERED: BISACODYL 10 MG SUPP.RECT. PR ONE (09:15)
[2016-12-13] MEDS ORDERED: KETOROLAC 15 MG/ML VIAL. IV PRN (10:15)
[2016-12-13] MEDS ORDERED: FAMOTIDINE 20 MG/2 ML VIAL IVP SCH (11:00)
--- NOTE | 2016-12-13 20:37 | PDOC1 ---
History and Physical Date of Admission Date of Admission DATE: 12/13/16 TIME: 20:31 Identification/Chief Complaint Chief Complaint abdominal pain and distention and sob. Problems: History of Present Illness History of Present Illness discharged from hospital within last 2 days with atonic colon and improvement in abdominal distention and pain with linzess and other laxatives. back to [facility] for a day or so with worsening of abdominal distention and severe pain. also essentially no po intake over day or so prior to admit. Past Medical History Cardiovascular: CAD, CHF, HTN, Hyperlipidemia, Pulmonary hypertension Pulmonary: COPD CENTRAL NERVOUS SYSTEM: Dementia GI: GERD, Peptic Ulcer disease Heme/Onc: Anemia NOS Musculoskeletal: Osteoarthritis Endocrine: Diabetes Past Surgical History Past Surgical History: Pacemaker, CABG, Cataract Removal, Hysterectomy, Other Family History Family History: Coronary Artery Disease, Diabetes, Hypertension Social History ALCOHOL: none Drugs: None Current Problem List Problem List Problems Medical Problems: (1) Abdominal pain Status: Acute (2) Acute renal failure Status: Acute (3) Hypokalemia Status: Acute (4) Ileus Status: Acute Problems: Current Medications Current Medications Current Medications Sodium Chloride 500 ml @ 0 mls/hr 1X ONCE IV Last administered on 12/12/16 19 :28; Start 12/12/16 at 18:45; Stop 12/12/16 at 18:54; Status DC Ondansetron HCl (Zofran) 4 mg 1X ONCE IV Last administered on 12/12/16 19:26 ; Start 12/12/16 at 19:15; Stop 12/12/16 at 19:16; Status DC Fentanyl Citrate (Fentanyl 2ml Vial) 25 mcg PRN Q15MIN PRN IV PAIN GREATER THAN 3/10 Last administered on 12/13/16 08:56; Start 12/12/16 at 18:45; Stop at 10:20; Status DC Iohexol (Omnipaque 300 Mg/ml) 75 ml 1X ONCE IV ; Start 12/12/16 at 18:45; Stop 12/12/16 at 18:54; Status DC Info (Do NOT chart on this entry -- for MONITORING) 1 each PRN DAILY PRN MC SEE COMMENTS; Start 12/12/16 at 19:00; Stop 12/14/16 at 18:59 Ondansetron HCl (Zofran) 4 mg PRN Q8HRS PRN IV NAUSEA/VOMITING Last administered on 12/13/16 01:26; Start 12/12/16 at 21:15; Stop 12/13/16 at 21:14 Morphine Sulfate 2 mg PRN Q2HR PRN IV PAIN; Start 12/12/16 at 21:15; Stop 12/13 at 10:20; Status DC Sodium Chloride 1,000 ml @ 100 mls/hr Q10H IV Last administered on 12/13/16 00:25; Start 12/12/16 at 21:04; Stop 12/13/16 at 21:03 Sodium Chloride 1,000 ml @ 1,000 mls/hr 1X ONCE IV Last administered on 21:55; Start 12/12/16 at 22:00; Stop 12/12/16 at 22:59; Status DC Bisacodyl (Dulcolax Supp) 10 mg 1X ONCE [place] ; Start 12/13/16 at 09:15; Stop at 09:16; Status DC Bisacodyl (Dulcolax Supp) 10 mg DAILY [place] ; Start 12/14/16 at 09:00 Ketorolac Tromethamine (Toradol) 7.5 mg PRN Q6HRS PRN IV PAIN Last administered on 12/13/16 11:36; Start 12/13/16 at 10:15; Stop 12/15/16 at 10:14 Famotidine (Pepcid) 20 mg DAILY IVP Last administered on 12/13/16 11:36; Start 12/13/16 at 11:00 Lorazepam (Ativan) 0.5 mg QIDPRN PRN IV ANXIETY / AGITATION Last administered on 12/13/16 11:30; Start 12/13/16 at 11:30 Active Scripts Active Coreg (Carvedilol) 12.5 Mg Tablet 1 Tab PO BID Klor-Con M20 (Potassium Chloride) 20 Meq Tablet.er 20 Meq PO DAILYWBKFT Reported Mirtazapine 15 Mg Tab.rapdis 15 Mg PO HS Vitamin D2 (Ergocalciferol (Vitamin D2)) 50,000 Unit Capsule 1 Cap PO WEEKLY Simvastatin 20 Mg Tablet 20 PO HS Docusate Sodium 100 Mg Capsule 100 Mg PO DAILY Norvasc (Amlodipine Besylate) 10 Mg Tablet 10 Mg PO DAILY LAST DOSE: 08/20/15 AM NEXT DOSE: 08/21/15 AM Miralax (Polyethylene Glycol 3350) 119 Gm Powder 17 Gm PO DAILY Acetaminophen 8 Hour (Acetaminophen) 650 Mg Tablet.er 650 Mg PO PRN Q4HRS PRN Allergies Allergies: Coded Allergies: No Known Drug Allergies (Unverified , 12/16/13) Physical Exam General: severe distress HEENT: Atraumatic, EOMI Lungs: Clear to auscultation Heart: RRR Breasts: Not examined Abdomen: Other (marked distention with severe diffuse tenderness) Rectal Exam: deferred PELVIC: Examination not indicated Extremities: No clubbing, No cyanosis, No edema Psych/Mental Status: Other (dementia) Vitals Vitals Vital Signs Date Time Temp Pulse Resp B/P (MAP) Pulse Ox O2 Delivery O2 Flow Rate FiO2 12/13/16 15:00 98.1 83 26 71/34 (46) 91 Nasal Cannula 2.0 98.1 Labs Labs Laboratory Tests Test 12/12/16 19:00 12/12/16 19:40 12/13/16 02:00 12/13/16 07:01 White Blood Count 9.9 x10^3/uL (4.0-11.0) 4.7 x10^3/uL (4.0-11.0) Red Blood Count 4.43 x10^6/uL (3.50-5.40) 3.73 x10^6/uL (3.50-5.40) Hemoglobin 12.2 g/dL (12.0-15.5) 10.4 g/dL (12.0-15.5) Hematocrit 37.8 % (36.0-47.0) 31.8 % (36.0-47.0) Mean Corpuscular Volume 85 fL (79-100) 85 fL (79-100) Mean Corpuscular Hemoglobin 27 pg (25-35) 28 pg (25-35) Mean Corpuscular Hemoglobin Concent 32 g/dL (31-37) 33 g/dL (31-37) Red Cell Distribution Width 15.8 % (11.5-14.5) 15.6 % (11.5-14.5) Platelet Count 229 x10^3/uL (140-400) 208 x10^3/uL (140-400) Neutrophils (%) (Auto) 81 % (31-73) 75 % (31-73) Lymphocytes (%) (Auto) 15 % (24-48) 21 % (24-48) Monocytes (%) (Auto) 4 % (0-9) 4 % (0-9) Eosinophils (%) (Auto) 0 % (0-3) 0 % (0-3) Basophils (%) (Auto) 0 % (0-3) 0 % (0-3) Neutrophils # (Auto) 8.0 x10^3uL (1.8-7.7) 3.5 x10^3uL (1.8-7.7) Lymphocytes # (Auto) 1.4 x10^3/uL (1.0-4.8) 1.0 x10^3/uL (1.0-4.8) Monocytes # (Auto) 0.4 x10^3/uL (0.0-1.1) 0.2 x10^3/uL (0.0-1.1) Eosinophils # (Auto) 0.0 x10^3/uL (0.0-0.7) 0.0 x10^3/uL (0.0-0.7) Basophils # (Auto) 0.0 x10^3/uL (0.0-0.2) 0.0 x10^3/uL (0.0-0.2) Prothrombin Time 19.8 SEC (11.7-14.0) Prothromb Time International Ratio 1.8 (0.8-1.1) Activated Partial Thromboplast Time 26 SEC (24-38) Sodium Level 144 mmol/L (136-145) 147 mmol/L (136-145) Potassium Level 3.4 mmol/L (3.5-5.1) 3.8 mmol/L (3.5-5.1) Chloride Level 116 mmol/L (98-107) 116 mmol/L (98-107) Carbon Dioxide Level 15 mmol/L (21-32) 17 mmol/L (21-32) Anion Gap 13 (6-14) 14 (6-14) Blood Urea Nitrogen 28 mg/dL (7-20) 31 mg/dL (7-20) Creatinine 1.6 mg/dL (0.6-1.0) 1.5 mg/dL (0.6-1.0) Estimated GFR (Cockcroft-Gault) 30.5 32.8 BUN/Creatinine Ratio 18 (6-20) Glucose Level 140 mg/dL (70-99) 147 mg/dL (70-99) Calcium Level 7.3 mg/dL (8.5-10.1) 7.2 mg/dL (8.5-10.1) Total Bilirubin 0.5 mg/dL (0.2-1.0) Aspartate Amino Transf (AST/SGOT) 25 U/L (15-37) Alanine Aminotransferase (ALT/SGPT) 16 U/L (14-59) Alkaline Phosphatase 75 U/L (46-116) Troponin I Quantitative 0.062 ng/mL (0.000-0.055) 0.071 ng/mL (0.000-0.055) GO-Qdl-H-Type Natriuretic Peptide 5852 pg/mL (0-449) Total Protein 5.3 g/dL (6.4-8.2) Albumin 1.8 g/dL (3.4-5.0) Albumin/Globulin Ratio 0.5 (1.0-1.7) Lipase 72 U/L (73-393) Lactic Acid Level 1.0 mmol/L (0.4-2.0) Glucose (Fingerstick) 128 mg/dL (70-99) Laboratory Tests Test 12/13/16 02:00 12/13/16 07:01 White Blood Count 4.7 x10^3/uL (4.0-11.0) Red Blood Count 3.73 x10^6/uL (3.50-5.40) Hemoglobin 10.4 g/dL (12.0-15.5) Hematocrit 31.8 % (36.0-47.0) Mean Corpuscular Volume 85 fL (79-100) Mean Corpuscular Hemoglobin 28 pg (25-35) Mean Corpuscular Hemoglobin Concent 33 g/dL (31-37) Red Cell Distribution Width 15.6 % (11.5-14.5) Platelet Count 208 x10^3/uL (140-400) Neutrophils (%) (Auto) 75 % (31-73) Lymphocytes (%) (Auto) 21 % (24-48) Monocytes (%) (Auto) 4 % (0-9) Eosinophils (%) (Auto) 0 % (0-3) Basophils (%) (Auto) 0 % (0-3) Neutrophils # (Auto) 3.5 x10^3uL (1.8-7.7) Lymphocytes # (Auto) 1.0 x10^3/uL (1.0-4.8) Monocytes # (Auto) 0.2 x10^3/uL (0.0-1.1) Eosinophils # (Auto) 0.0 x10^3/uL (0.0-0.7) Basophils # (Auto) 0.0 x10^3/uL (0.0-0.2) Sodium Level 147 mmol/L (136-145) Potassium Level 3.8 mmol/L (3.5-5.1) Chloride Level 116 mmol/L (98-107) Carbon Dioxide Level 17 mmol/L (21-32) Anion Gap 14 (6-14) Blood Urea Nitrogen 31 mg/dL (7-20) Creatinine 1.5 mg/dL (0.6-1.0) Estimated GFR (Cockcroft-Gault) 32.8 Glucose Level 147 mg/dL (70-99) Calcium Level 7.2 mg/dL (8.5-10.1) Troponin I Quantitative 0.071 ng/mL (0.000-0.055) Glucose (Fingerstick) 128 mg/dL (70-99) VTE Prophylaxis Ordered VTE Prophylaxis Devices: Yes VTE Pharmacological Prophylaxi: No Assessment/Plan Assessment/Plan iv hydration. will ask GI for any other thoughts they might have at this time but doubt any further suggestions from last admission. very difficult problem. APPL,ORION Sainz MD Dec 13, 2016 20:37
--- NOTE | 2016-12-13 20:40 | PDOC3 ---
DISCHARGE SUMMARY DISCHARGE SUMMARY: patient was admitted with diffuse bowel dilation, atony, distention, and marked tenderness. GI did not feel there were any good options to improve this. she was supported with ivf's but had steady decline on day of with hypotension. family was present and requested comfort care only from nursing and this was honored. Patient on 12-13-16. We will be available to comfort family as we can. ORION RALPH MD Dec 13, 2016 20:40
[2016-12-14] MEDS ORDERED: BISACODYL 10 MG SUPP.RECT. PR SCH (09:00)
== END 2016-12-13 16:14 | disposition expired | DRG 393 ==
LOC: ER 18:13 → 2 SOUTH 20:56
PROVIDERS: ADMIT Family Medicine; ATTEND Family Medicine
DX: K63.89 Other specified diseases of intestine (principal); E43 Unspecified severe protein-calorie malnutrition; N17.9 Acute kidney failure, unspecified; K59.8 Other specified functional intestinal disorders; K56.60 Unspecified intestinal obstruction; K56.7 Ileus, unspecified; E11.9 Type 2 diabetes mellitus without complications; E78.5 Hyperlipidemia, unspecified; E87.6 Hypokalemia; F03.90 Unspecified dementia, unspecified severity, without behavioral disturbance, psychotic disturbance, mood disturbance, and anxiety; I11.0 Hypertensive heart disease with heart failure; I25.10 Atherosclerotic heart disease of native coronary artery without angina pectoris; I27.2 Other secondary pulmonary hypertension; I50.9 Heart failure, unspecified; J44.9 Chronic obstructive pulmonary disease, unspecified; K21.9 Gastro-esophageal reflux disease without esophagitis; M19.90 Unspecified osteoarthritis, unspecified site; R14.0 Abdominal distension (gaseous); F41.9 Anxiety disorder, unspecified; Z66 Do not resuscitate; I95.9 Hypotension, unspecified; Z51.5 Encounter for palliative care; I25.2 Old myocardial infarction; Z90.710 Acquired absence of both cervix and uterus; Z82.49 Family history of ischemic heart disease and other diseases of the circulatory system; Z87.11 Personal history of peptic ulcer disease; Z83.3 Family history of diabetes mellitus; Z95.1 Presence of aortocoronary bypass graft; Z98.49 Cataract extraction status, unspecified eye; Z95.0 Presence of cardiac pacemaker
CPT/HCPCS: 36415; 74176; 80048; 80053; 82962; 83605; 83690; 83880; 84484; 85027; 85610; 85730; 87641; 96361; 96374; J1885; J2060; J2405; J3010; J7030; J7040; S0028; 99285-25